=== PATIENT | male | born 1960 | race Caucasian/White ===

== ENCOUNTER 2022-10-25 06:02 | Inpatient (IN) ==
--- NOTE | 2022-10-06 14:53 | PAT Medication Instructions ---
Medication Instructions Date of Service October 06, 2022 Home Medications carisoprodol 350 mg tablet 350 mg PO TID PRN muscle spasms ipratropium 20 mcg-albuterol 100 mcg/actuation mist for inhalation (Combivent Respimat) 1 puff inhalation Q4H PRN Shortness Of Breath oxycodone 10 mg tablet 30 mg PO QID DO NOT take the morning of surgery carisoprodol 350 mg tablet 350 mg PO TID PRN muscle spasms Take morning of surgery With a small sip of water, OTHERWISE NOTHING TO EAT OR DRINK AFTER MIDNIGHT: ipratropium 20 mcg-albuterol 100 mcg/actuation mist for inhalation (Combivent Respimat) 1 puff inhalation Q4H PRN Shortness Of Breath (if needed) oxycodone 10 mg tablet 30 mg PO QID Take evening before surgery carisoprodol 350 mg tablet 350 mg PO TID PRN muscle spasms (if needed) ipratropium 20 mcg-albuterol 100 mcg/actuation mist for inhalation (Combivent Respimat) 1 puff inhalation Q4H PRN Shortness Of Breath (if needed) oxycodone 10 mg tablet 30 mg PO QID Other Notes If you have any questions please call us at [phone] or [phone] or [phone] or [phone]
--- NOTE | 2022-10-11 11:53 | Anesthesiology Consultation ---
Date of Service October 11, 2022 Assessment & Plan (1) Encounter for pre-operative examination: Chart Review Chart Review: Acceptable Risk for Surgery (pending PCP clearance 10/17/22) and Patient seen in Pre Admission Testing -Awaiting PCP clearance 10/17/22 Pt with chronic pain- concerned with pain control post op- did educate that post operative pain control would be left to surgeon's discretion Per PAT appt on 10/11/22, patient denies any recent travel or large group activities. Pt is vaccinated for Covid. Will leave to surgeon's discretion if preop Covid testing needed. Educated on importance of using Covid precautions one week prior to surgery Teaching & Discussion Pre-Anesthesia Teaching/Discussion Notes: Instructed NPO after midnight before surgery,except medications with 15 cc of water. Medication instructions provided according to the PAT guidelines. History Surgery Operation Date: 10/25/22 12:25 Proposed Procedures p C6-C7 Anterior Cervical Discectomy Fusion, C4-C7 Fusion, C5 Corpectomy, Spinal Cord Monitoring - Sung Hummel, Height/Weight Height: 5 ft 7 in Weight: 80.9 kg Allergies Allergy/AdvReac Type Severity Reaction Status Date / Time No Known Allergies Allergy Verified 10/06/22 09:09 Medications Home Medications Medication Instructions Recorded Confirmed Last Taken carisoprodol 350 mg tablet 350 mg PO TID PRN muscle spasms 10/06/22 10/06/22 Unknown ipratropium 20 mcg-albuterol 100 1 puff inhalation Q4H PRN 10/06/22 10/06/22 Unknown mcg/actuation mist for inhalation Shortness Of Breath (Combivent Respimat) oxycodone 10 mg tablet 30 mg PO QID 10/06/22 10/06/22 Unknown amitriptyline 10 mg tablet See Rx Instructions .Route .COMPLEX 10/11/22 10/11/22 Unknown Past Medical History Medical History Cauda equina syndrome caused by his spinal cord surgery (2009); mostly uses wheelchair outside of home, walker used at home Chronic obstructive pulmonary disease inh prn breathing stable Degenerative joint disease Bilateral knee pain as well History of COVID-19 beginning 2021, tested at [facility] clinic in [place], not hosp; no symptoms, was sick "so they both tested" Hx MRSA infection ~10 years ago, dx in [place], found in [place], tx and cleared. Myocardial Infarction ~21 years ago, in [place], "stress heart attack", pushed air bubble into heart during cath, causing "major heart attack" - No stents or bypass needed - Negative stress test for ischemia 2012 - No routine cardio- just PCP Osteoarthritis Exercise / Class Metabolic Activity III < 4 Walking/Shop/Light housework (significantly decreased activity (due to increased pain since PCP decreased pain medication doses) - no chest pain or SOB with flat surface, short distance ambulation ) Past Surgical History Surgical History History of cardiac cath ~21 years ago, "light heart attack, pushed an air bubble into his heart during the cath causing a major heart attack," done in [place]; does not follow cardio History of esophagogastroduodenoscopy (EGD) Hx of anterior cruciate ligament tear reconstruction Hx of arthroscopy of knee x15 between both knees Hx of colonoscopy Hx of elbow surgery LT. Hx of knee surgery x3-bilat. knees Hx of lumbosacral spine surgery 2 cages placed into back from spinal cord injury Hx of shoulder surgery open surgery to removed portion of collar bone Hx of tonsillectomy Past Anesthesia History No Hx of Anesthesia Complications (with exception to PONV ) and No Family Hx of Anesthesia Complications History of PONV No Hx of Motion Sickness and History of PONV Social History Smoking Status: Current every day smoker tobacco type: cigarettes Smoking cigarettes per day: 10cigs/day; trying to quit- does wear nicotine patches Do You Dip or Chew Tobacco: No Hx Alcohol Use: No Hx Substance Use: No substance use type: does not use Review of Systems Patient denies chest pain, shortness of breath, dyspnea on exertion, reflux, cough, wheezing, palpitations. No hx of seizures, stroke, apnea/snoring. No hx of blood clots or blood transfusions Physical Exam Vital Signs VITALS BP 122/70 P 86 TEMP 98.0 SP02 94% RESP 16 Constitutional no acute distress ENMT Mouth: no TMJ clicking Thyromental Distance: > or= 3.5 Finger Breadths (4.0) Mallampati Class: I Full dentures on top and bottom Neck + limited neck extension (significant) Respiratory normal respiratory effort; no respiratory distress Auscultation: lungs clear to auscultation bilaterally; no wheezes Minimal course breath sounds throughout Cardiovascular Rate/Rhythm: regular rate and regular rhythm Heart Sounds: no murmur Vessels: no carotid bruit Musculoskeletal Spine: + pain with cervical ROM (significant) Extremities: extremities normal to inspection Psychiatric Orientation: alert Lab Results Anesthesia Preop Results Results Anesthesia Widget: WBC 8.54 K/ul (4.8-10.8) 10/11/22 Hgb 17.1 g/dl (14.0-18.0) 10/11/22 Hct 50.0 % (42.0-52.0) 10/11/22 Plt 269 K/uL (130-400) 10/11/22 Na 139 mmol/L (136-145) 10/11/22 K 4.4 mmol/L (3.5-5.1) 10/11/22 Cl 108 mmol/L (98-107) H 10/11/22 CO2 26 mmol/L (21-32) 10/11/22 BUN 13 mg/dl (6-23) 10/11/22 Creat 1.06 mg/dl (0.6-1.4) 10/11/22 Glucose Level 86 mg/dl (70-99(Fasting)) 10/11/22 PT 10.5 Seconds (9.0-12.0) 10/11/22 PTT 29.9 Seconds (21.0-31.0) 10/11/22 INR 1.0 (0.9-1.1) 10/11/22 Urine Color Yellow 10/11/22 Urine Appearance Clear (Clear) 10/11/22 Urine pH 5.5 (4.5-7.5) 10/11/22 Urine Specific Wheeler 1.027 (1.000-1.030) 10/11/22 Urine Protein Negative (Negative) 10/11/22 Urine Glucose (UA) Negative (Negative) 10/11/22 Urine Ketones Negative (Negative) 10/11/22 Urine Blood Negative (Negative) 10/11/22 Urine Nitrite Negative (Negative) 10/11/22 Urine Bilirubin Negative (Negative) 10/11/22 Urine Urobilinogen Negative (Negative) 10/11/22 Urine Leukocyte Esterase Negative (Negative) 10/11/22 Blood Type O Negative 10/11/22 Antibody Screen NEGATIVE 10/11/22 Testing Electrocardiogram Date: 10/11/22 Findings: + NSR @ (69bpm ) Normal EKG per cardio Chest X-Ray Date: 08/14/22 Possible pulmonary emphysema, otherwise unremarkable lungs Echocardiogram Date: 12/25/18 EF: 50-55% LV Function: normal RWMA: + none Other Findings: + diastolic dysfunction (Grade 1) Valvular Disease: + no significant valvular disease Left ventricle normal in size. Mild concentric LVH. Borderline left atrial enlargement COVID-19 Risk Screen Screening Information COVID-19 Screen Date: 10/11/22 Exposure 21 Days Family/Household +COVID Last 21 Days: No Exposure 10 Days Any COVID Exposure Last 10 Days: No Symptoms Last 10 Days Experienced COVID Sx Last 10 Days: No + COVID 0-90 Days COVID + in Last 0-90 Days: No Risk Plan COVID Risk Plan: No Risk Identified Patient Education COVID Preop Screening Education Complete: Yes
[~2022-10-25 06:02] MED LIST: ACETAMINOPHEN 500 MG TAB PO SCH; CeleBREX 200 MG CAP PO SCH; GABAPENTIN 600 MG DOSE PO SCH; LR 15ML/HR IV SCH; ceFAZolin 2000MG 2,000 MG/15 ML SYR IV SCH
[2022-10-25] MEDS ORDERED: LIDOCAINE 2% MPF LOCAL 5 ML VIAL ONE (07:20)
[2022-10-25] MEDS ORDERED: PROPOFOL IV EMULSION 10 MG/ML 20 ML VIAL IV ONE (07:20)
[2022-10-25] MEDS ORDERED: ROCURONIUM BROMIDE 10 MG/ML 5 ML VIAL IV ONE ×3 (07:20→08:41)
[2022-10-25] MEDS ORDERED: MIDAZOLAM HCL 1 MG/ML 2ML VIAL ONE (07:21)
[2022-10-25] MEDS ORDERED: fentaNYL citrate PF 100 MCG/2 ML VIAL ONE ×2 (07:21→08:18)
[2022-10-25] MEDS ORDERED: KETAMINE 50 MG/5 ML SYRINGE ONE (07:24)
[2022-10-25] MEDS ORDERED: PROMETHAZINE HCL 6.25 MG in SODIUM CHLORIDE 0.9% 50 ML IV PRN (07:31)
[2022-10-25] MEDS ORDERED: ONDANSETRON INJ 2 MG/ML 2 ML VIAL IV PRN (07:31)
[2022-10-25] MEDS ORDERED: ATROPINE SULFATE 0.1 MG/ML 10ML SYR IV PRN (07:31)
[2022-10-25] MEDS ORDERED: ePHEDrine sulfate 50 MG/ML AMP IV PRN (07:31)
[2022-10-25] MEDS ORDERED: SCOPOLAMINE 1 MG TDSY TD ONE ×2 (07:32→07:46)
--- NOTE | 2022-10-25 07:35 | History & Physical Bridge Note ---
Date of Service October 25, 2022 History & Physical Bridge Note I have examined the patient, reviewed the History & Physical and in the interval since the performance of the History & Physical I have noted the following changes of clinical significance: no changes noted
--- NOTE | 2022-10-25 07:36 | History & Physical Report ---
Date of Service October 25, 2022 Assessment & Plan (1) Cervical stenosis of spinal canal: Plan: C6-C7 anterior cervical discectomy and fusion, C4-C7 fusion, C5 corpectomy History of Present Illness Chief Complaint: Neck and arm pain Primary Care Provider: Rubin Jimenez MD This is a 62-year-old male presents with chronic persistent neck and arm pain after failing course of nonoperative care is here for surgical intervention. Allergies Allergy/AdvReac Type Severity Reaction Status Date / Time No Known Allergies Allergy Verified 10/25/22 06:29 Home Medications Medication Instructions Recorded Confirmed Type carisoprodol 350 mg tablet (Soma) 350 mg PO TID PRN muscle spasms 10/06/22 10/25/22 History ipratropium 20 mcg-albuterol 100 1 puff inhalation Q4H PRN 10/06/22 10/25/22 History mcg/actuation mist for inhalation Shortness Of Breath (Combivent Respimat) oxycodone 10 mg tablet 30 mg PO QID 10/06/22 10/25/22 History amitriptyline 10 mg tablet 30 mg PO HS 10/11/22 10/25/22 History Past Med/Surg History Medical History Cauda equina syndrome caused by his spinal cord surgery (2009); mostly uses wheelchair outside of home, walker used at home Chronic obstructive pulmonary disease inh prn breathing stable Degenerative joint disease Bilateral knee pain as well History of COVID-19 beginning 2021, tested at [facility] clinic in [place], not hosp; no symptoms, was sick "so they both tested" Hx MRSA infection ~10 years ago, dx in [place], found in [place], tx and cleared. Myocardial Infarction ~21 years ago, in [place], "stress heart attack", pushed air bubble into heart during cath, causing "major heart attack" - No stents or bypass needed - Negative stress test for ischemia 2012 - No routine cardio- just PCP Osteoarthritis Surgical History History of cardiac cath ~21 years ago, "light heart attack, pushed an air bubble into his heart during the cath causing a major heart attack," done in [place]; does not follow cardio History of esophagogastroduodenoscopy (EGD) Hx of anterior cruciate ligament tear reconstruction Hx of arthroscopy of knee x15 between both knees Hx of colonoscopy Hx of elbow surgery LT. Hx of knee surgery x3-bilat. knees Hx of lumbosacral spine surgery 2 cages placed into back from spinal cord injury Hx of shoulder surgery open surgery to removed portion of collar bone Hx of tonsillectomy Social History Smoking Status: Current every day smoker Cigarettes Per Day: 10cigs/day; trying to quit- does wear nicotine patches; Second Hand Exposure: No; Do You Dip or Chew Tobacco: No; Tobacco Cessation Education Requested by Patient: No Hx Alcohol Use: No Hx Substance Use: No Preferred Language: Telugu Communication Ability: Effective Supervisor Component Assembler Required: No Beliefs That Will Affect Care: None Current Living Situation: Spouse Other Information That Helps Us Care for You: No Feels Safe at Home: Yes Safety Concerns: Feels Safe At This Time Assistive Devices: Denture - Upper, Denture - Lower, Walker and Wheelchair Physical Exam Physical Exam: Patient is alert and oriented Heart regular rate and rhythm Lungs clear Results & Data Results & Data Vital Signs (Past 12 Hours) Vital Signs Temp Pulse Resp BP Pulse Ox O2 Del Method 10/25/22 06:23 36.7 C 75 20 112/85 95 Room Air
[2022-10-25] MEDS ORDERED: ceFAZolin 330 MG/ML 1 GM VIAL ONE (07:39)
[2022-10-25] MEDS ORDERED: ONDANSETRON INJ 2 MG/ML 2 ML VIAL ONE (08:55)
[2022-10-25] MEDS ORDERED: PHENYLEPHRINE HCL 10 MG/ML VIAL ONE (08:55)
[2022-10-25] MEDS ORDERED: DEXAMETHASONE SOD INJ 4 MG/ML VIAL ONE (08:55)
[2022-10-25] MEDS ORDERED: GLYCOPYRROLATE 0.2 MG/ML VIAL ONE ×2 (09:44)
[2022-10-25] MEDS ORDERED: NEOSTIGMINE METHYLSULFATE 1 MG/ML 10ML VIAL ONE (09:44)
[2022-10-25] MEDS ORDERED: ALBUTEROL HFA 8 GM INHALER INH ONE (09:48)
[2022-10-25] MEDS ORDERED: FLOSEAL HEMOSTATIC MATRIX 10ML TOP ONE (09:49)
--- NOTE | 2022-10-25 09:52 | Operative Report ---
Post Operative Report Pre & Post Diagnosis Operation Date: 10/25/22 07:45 Pre-Op Diagnosis: Cervical spinal stenosis with myeloradiculopathy Post-Op Diagnosis: Same I identified the patient and participated in the time-out.: Yes Procedure Operation Date: 10/25/22 07:45 Actual Procedures #1 anterior cervical corpectomy of C4. #2 anterior cervical discectomy C5-C6. #3 anterior cervical arthrodesis C3-C5 C5-C6. #4 placement of peek 25 mm cage C3-C5 and 8 mm cage C5-C6. #5 placement locally harvested morselized autograft combined with I factor interbody spaces. #6 placement of K2 M plate and screws from C3 to see 6. Surgeon Sung Hummel, DO Food Tray Assembler Shweta Banks Estimated Blood Loss 10 Findings Consistent with Post-Op Diagnosis Specimens None Indications This is a 62-year-old male presents above-mentioned diagnosis of failed course of nonoperative care is here for surgical invention. Description of Procedure Patient was met with identified informed consent obtained. Patient was then taken to the operative suite underwent intubation placed in a supine position the Mac table head Andrews head up operator. All bony prominences well-padded eyes inspected to ensure no external pressure placed upon them. This point the anterior cervical spine was prepped and draped in a normal sterile fashion. Longitudinal incision was then placed along the right anterior aspect of the cervical spine from C3 to see 6. Blunt dissection with the assistance of bipolar electrocautery to form down to expose the anterior cervical spine from C3-C6. Upon further review his x-rays and MRI I did elect to forego the C6-7 discectomy and focus instead on the severe levels from C3-C6. I then performed a complete discectomy of C3-C4 out to the uncovertebral joints bilaterally followed by C4-C5. Tillar distracting pins were then placed and through the C5 to distract across the C4 vertebral body. A complete corpectomy of C4 was then performed including removal of all posterior annular fibers and longitudinal limb and bilateral foraminotomies. Endplates burred to subcortical bleeding bone and a 25 mm peek cage filled with locally harvested morselized autograft and I factor tapped in position. Then proceeded to C5-C6. Again complete discectomy performed out to the uncovertebral's bilaterally. Tillar distraction pins again utilized. Removed all posterior annular fibers longitudinal ligament bilateral foraminotomies performed an 8 mm peek cage filled with locally harvested morselized autograft and I factor tapped in position. All anterior osteophytes were then burred to a smooth cortical surface and a K2 M plate and screws applied with the assistance of fluoroscopy. The incision was then copiously irrigated explored to ensure no damage to surrounding structures remaining bleeding. 10 round MADDY drain inserted. The incision was then closed with 2 Vicryl in a fashion of 4 Monocryl for final skin closure. Steri-Strip sterile dressing placed. Patient awakened and taken to PACU in stable condition. Please note spinal cord monitoring was utilized at the procedure no changes noted. Lastly Shweta Banks was present at the entire surgeon while the patient positioning complex portions of the surgery and final skin closure. I attest to the content of the Intraoperative Record and any orders documented therein. Any exceptions are noted below.
[2022-10-25] MEDS: fentaNYL citrate PF 100 MCG/2 ML VIAL IV PRN ×5 (10:05→11:12)
[2022-10-25] MEDS ORDERED: SODIUM CHLORIDE 0.9% 50 ML BAG ONE (10:07)
[2022-10-25] MEDS ORDERED: PROMETHAZINE HCL INJ 25 MG/ML 1 ML VIAL ONE (10:08)
--- NOTE | 2022-10-25 10:28 | Fluoroscopy Report ---
FL cervical 2-3V CLINICAL HISTORY: ACDF C3-6 CORPECTOMY C4 COMPARISON STUDY: None. FLUOROSCOPY TIME: 9 seconds. EXPOSURE DOSE: 1.05 mGy FLUOROSCOPIC IMAGES: 2 FINDINGS: Fluoroscopy was provided during C4 corpectomy, C5-C6 discectomy with interbody spacer place ment and anterior fusion from C3 through C6. Hardware is intact. Surgical drain is in place. Endotrac heal tube is partially imaged. IMPRESSION: Fluoroscopy provided during C4 corpectomy, C5-C6 discectomy and C3-C6 anterior fusion. ACT 112: Negative or not required by law. Electronically signed by: Rafita Palomino M.D. 10/25/2022 10:25 AM
[2022-10-25] MEDS ORDERED: ACETAMINOPHEN 1000 MG/100 ML IV IV ONE (10:38)
[2022-10-25] MEDS ORDERED: ACETAMINOPHEN 1,000 MG/100 ML VIAL IV STA (10:39)
[2022-10-25] MEDS ORDERED: ALBUT/IPRATROP 3MG/0.5MG NEB 3 ML VIAL NEB STA (10:39)
[2022-10-25] MEDS ORDERED: ALBUT/IPRATROP 3MG/0.5MG NEB 3 ML VIAL ONE (10:39)
[2022-10-25] MEDS ORDERED: HYDROmorphone INJ 0.5 MG/0.5 ML SYR IV PRN (11:21)
[2022-10-25] MEDS: HYDROmorphone INJ 0.5 MG/0.5 ML SYR ONE ×2 (11:25→11:29)
[2022-10-25] MEDS ORDERED: ACETAMINOPHEN 1,000 MG/100 ML VIAL IV PRN (12:09)
[2022-10-25] MEDS ORDERED: bisacodyL 10 MG SUPP PR PRN (12:09)
[2022-10-25] MEDS ORDERED: diphenhydrAMINE Capsule 25 MG CAP PO PRN (12:09)
[2022-10-25] MEDS ORDERED: DO NOT ADMINISTER FLU VACCINE PRN (12:09)
[2022-10-25] MEDS ORDERED: dexAMETHasone 8 MG in SYRINGE 0 ML IV PRN (12:09)
[2022-10-25] MEDS ORDERED: traMADol HCL 50 MG TABLET PO PRN (12:09)
[2022-10-25] MEDS ORDERED: SOD PHOSPHATE/SOD BIPHOSPHATE ENEMA 132 ML BTL PR PRN (12:09)
[2022-10-25] MEDS ORDERED: HYDROmorphone INJ 1 MG/ML SYRINGE IV PRN (12:09)
[2022-10-25] MEDS ORDERED: FAMOTIDINE 20 MG TAB PO PRN (12:09)
[2022-10-25] MEDS ORDERED: PROMETHAZINE HCL 12.5 MG in SODIUM CHLORIDE 0.9% 50 ML IV PRN (12:09)
[2022-10-25] MEDS ORDERED: METOCLOPRAMIDE HCL INJ 5 MG/ML 2 ML VIAL IV PRN (12:09)
[2022-10-25] MEDS ORDERED: LORazepam 2 MG/1 ML VIAL IV PRN (12:09)
[2022-10-25] MEDS ORDERED: ACETAMINOPHEN 500 MG TAB PO PRN (12:09)
[2022-10-25] MEDS ORDERED: DO NOT ADMINISTER PNEUMOCOCCAL VACCINE PRN (12:09)
[2022-10-25] MEDS ORDERED: hydrOXYzine HCl 25 MG TAB PO PRN (12:09)
[2022-10-25] MEDS ORDERED: ALUMINUM/MAGNESIUM SUSP 30 ML UDC PO PRN (12:09)
[2022-10-25] MEDS ORDERED: ONDANSETRON 4 MG OD TAB PO PRN (12:09)
[2022-10-25] MEDS ORDERED: LORazepam 0.5 MG TAB PO PRN (12:09)
[2022-10-25] MEDS ORDERED: RACEPINEPHRINE 2.25% NEBU SOLN 0.5 ML VIAL INH PRN (12:09)
[2022-10-25] MEDS ORDERED: NALOXONE HCL 0.4 MG/1 ML VIAL/CARP IV PRN (12:09)
--- NOTE | 2022-10-25 12:58 | Anesthesiology Progress Note ---
Date of Service October 25, 2022 Anesthesia Post Procedure Vital Signs Vital Signs: Temp Pulse Pulse Resp BP Pulse Ox O2 Del Method 10/25/22 12:05 36.5 C 100 H 16 120/85 92 Nasal Cannula 10/25/22 10:20 94 H 18 144/96 H 92 Oxymask 10/25/22 11:50 100 H 20 122/85 91 Nasal Cannula 10/25/22 11:40 36.2 C L 92 H 20 123/84 92 Nasal Cannula 10/25/22 11:30 85 12 123/93 90 Nasal Cannula 10/25/22 11:20 87 14 127/90 92 Nasal Cannula 10/25/22 11:10 77 14 125/88 93 Nasal Cannula 10/25/22 11:00 79 12 145/94 H 92 Nasal Cannula 10/25/22 10:50 92 H 12 135/67 93 Oxymask 10/25/22 10:40 88 16 135/98 95 Oxymask 10/25/22 10:30 86 16 140/102 H 93 Oxymask 10/25/22 10:10 86 20 127/81 93 Oxymask 10/25/22 10:01 36.0 C L 104 H 16 141/79 H 94 Oxymask 10/25/22 06: 36.7 C 75 20 112/85 95 Room Air O2 Flow Rate 10/25/22 12:05 5 10/25/22 10:20 6 10/25/22 11:50 4 10/25/22 11:40 4 10/25/22 11:30 4 10/25/22 11:20 4 10/25/22 11:10 4 10/25/22 11:00 4 10/25/22 10:50 6 10/25/22 10:40 6 10/25/22 10:30 6 10/25/22 10:10 6 10/25/22 10:01 6 10/25/22 06:23 Pain Intensity Generalized: Pain Intensity: 10 Transfer of Care Handoff Completed per policy Notes Mental Status: alert / awake / arousable Patient Amnestic to Procedure: Yes Nausea / Vomiting: adequately controlled Pain: adequately controlled Airway Patency, RR, SpO2: stable & adequate BP & HR: stable & adequate Hydration State: stable & adequate Anesthetic Complications: no major complications apparent
--- NOTE | 2022-10-25 13:07 | Consultation ---
Date of Consultation October 25, 2022 History of Present Illness Reason for Consultation: post op med management Attending Physician: Sung Hummel DO Allergies Allergy/AdvReac Type Severity Reaction Status Date / Time No Known Allergies Allergy Verified 10/25/22 06:29 Home Medications Medication Instructions Recorded Confirmed Type carisoprodol 350 mg tablet (Soma) 350 mg PO TID PRN muscle spasms 10/06/22 10/25/22 History ipratropium 20 mcg-albuterol 100 1 puff inhalation Q4H PRN 10/06/22 10/25/22 History mcg/actuation mist for inhalation Shortness Of Breath (Combivent Respimat) oxycodone 10 mg tablet 30 mg PO QID 10/06/22 10/25/22 History amitriptyline 10 mg tablet 30 mg PO HS 10/11/22 10/25/22 History Patient History Medical History Cauda equina syndrome caused by his spinal cord surgery (2009); mostly uses wheelchair outside of home, walker used at home Chronic obstructive pulmonary disease inh prn breathing stable Degenerative joint disease Bilateral knee pain as well History of COVID-19 beginning 2021, tested at [facility] clinic in [place], not hosp; no symptoms, was sick "so they both tested" Hx MRSA infection ~10 years ago, dx in [place], found in [place], tx and cleared. Myocardial Infarction ~21 years ago, in [place], "stress heart attack", pushed air bubble into heart during cath, causing "major heart attack" - No stents or bypass needed - Negative stress test for ischemia 2012 - No routine cardio- just PCP Osteoarthritis Surgical History History of cardiac cath ~21 years ago, "light heart attack, pushed an air bubble into his heart during the cath causing a major heart attack," done in [place]; does not follow cardio History of esophagogastroduodenoscopy (EGD) Hx of anterior cruciate ligament tear reconstruction Hx of arthroscopy of knee x15 between both knees Hx of colonoscopy Hx of elbow surgery LT. Hx of knee surgery x3-bilat. knees Hx of lumbosacral spine surgery 2 cages placed into back from spinal cord injury Hx of shoulder surgery open surgery to removed portion of collar bone Hx of tonsillectomy Social History Smoking Status: Current every day smoker Cigarettes Per Day: 10cigs/day; trying to quit- does wear nicotine patches; Second Hand Exposure: No; Do You Dip or Chew Tobacco: No; Tobacco Cessation Education Requested by Patient: No Hx Alcohol Use: No Hx Substance Use: No Preferred Language: Afghan Communication Ability: Effective Air Cargo Specialist Required: No Beliefs That Will Affect Care: None Current Living Situation: Spouse Other Information That Helps Us Care for You: No Feels Safe at Home: Yes Safety Concerns: Feels Safe At This Time Assistive Devices: Denture - Upper, Denture - Lower, Walker and Wheelchair Results & Data Vital Signs (Past 12 Hours) Vital Signs Temp Pulse Pulse Resp BP Pulse Ox O2 Del Method 10/25/22 12:05 36.5 C 100 H 16 120/85 92 Nasal Cannula 10/25/22 10:20 94 H 18 144/96 H 92 Oxymask 10/25/22 11:50 100 H 20 122/85 91 Nasal Cannula 10/25/22 11:40 36.2 C L 92 H 20 123/84 92 Nasal Cannula 10/25/22 11:30 85 12 123/93 90 Nasal Cannula 10/25/22 11:20 87 14 127/90 92 Nasal Cannula 10/25/22 11:10 77 14 125/88 93 Nasal Cannula 10/25/22 11:00 79 12 145/94 H 92 Nasal Cannula 10/25/22 10:50 92 H 12 135/67 93 Oxymask 10/25/22 10:40 88 16 135/98 95 Oxymask 10/25/22 10:30 86 16 140/102 H 93 Oxymask 10/25/22 10:10 86 20 127/81 93 Oxymask 10/25/22 10:01 36.0 C L 104 H 16 141/79 H 94 Oxymask 10/25/22 06:23 36.7 C 75 20 112/85 95 Room Air O2 Flow Rate 10/25/22 12:05 5 10/25/22 10:20 6 10/25/22 11:50 4 10/25/22 11:40 4 10/25/22 11:30 4 10/25/22 11:20 4 10/25/22 11:10 4 10/25/22 11:00 4 10/25/22 10:50 6 10/25/22 10:40 6 10/25/22 10:30 6 10/25/22 10:10 6 10/25/22 10:01 6 10/25/22 06:23
--- NOTE | 2022-10-25 13:39 | Consultation ---
Date of Consultation October 25, 2022 Assessment & Plan (1) Toxic encephalopathy: (2) Postoperative hypoxia: Patient is 62 y/o M with PMH chronic pain, COPD, h/o cauda equina syndrome after lumbar surgery in 2009 per patient, tobacco use seen in medical consultation after rapid response code called on patient on medical surgical floor. S/P ACDF today by Dr Hummel Patient had received fentanyl total 150mcg and received 0.25mg Dilaudid in PACU prior to coming to floor. After coming to floor patient became somnolent. Code Purple called. Patient was given Narcan and more arousable. Patient drowsy, awakens to voice. When awake reports anterior and posterior neck pain. Currently on 6 L oxygen via nasal cannula with O2 sat 92% Monitor oxygen saturation continue supplemental oxygen as needed Currently holding narcotics until patient more awake (3) Stroke-like symptoms: Left sided weakness R/O TIA, CVA Patient developed LUE, LLE weakness and numbness while on medical surgical floor approximately 35-45 minutes after returning from PACU CT Head: no acute intracranial abnormality Developed left facial numbness. No acute facial drooping noted. CT C-spine: No acute cervical spine fracture or subluxation. Expected postoperative changes with anterior plate and screw fusion hardware at C3-C6 with C4 corpectomy and C5-C6 discectomy. Dr Hummel evaluated patient at bedside. Suggested continuing monitoring from ortho aspect Neurology consult. Suggested CTA head and neck, MRI brain. Suggested starting aspirin. Patient not ideal candidate for TNK secondary to POD #0 ACDF CTA head and neck pending MRI brain pending Start daily aspirin Lipid panel, A1c in am Consider echo if imaging suggestive of CVA Allow permissive hypertension (4) Post-operative state: (5) S/P spinal surgery: Post op day# 0 S/P ACDF by Dr Hummel EBL# 10ml wound management per ortho PT/OT as appropriate DVT prophylaxis per ortho monitor H&H for acute blood loss anemia (6) Chronic obstructive pulmonary disease: Uses Combivent approximately once weekly at home Mild wheezing noted Xopenex/Atrovent nebs (7) Tobacco use: Smoking cessation recommended Nicotine patch (8) Cauda equina syndrome: Patient reports history of cauda equina syndrome after back surgery in 2009 requiring being taken back to the OR for emergent surgery reports at baseline patient walks minimal distance and uses wheelchair secondary to chronic back pain and chronic bilateral knee pain DVT Prophylaxis SCDs Pt Follows with [facility] clinic for routine care Pt was seen and care coordinated with Dr Maldonado. See addendum I spent a total of 80 minutes reviewing notes, outpatient records, labs, medication, coordinating, documenting and providing care for this patient excluding time spent in the performance of separately billed services. Thank you for this consultation. We will follow the patient with you during their hospital stay. You can reach a member of the [facility] Hospitalist Team 12/02 via [employer] Supervising Physician Co-Signing Physician Notes I have seen and examined the patient and have discussed the case with the provider above. I agree with the assessment and plan as stated. 62-year-old man who is an active smoker presented today for elective ACDF. Medicine was consulted for postoperative medical management. While in the PACU he received fentanyl and Dilaudid. He arrived on the floor around noon and subsequently became a code purple within the next 30 minutes. He improved with Narcan administration but was in terrible pain. He was moved to the PCU and subsequently became more fatigued with left upper extremity weakness and numbness, left lower extremity weakness and numbness and facial numbness on the left. This waxed and waned. CT scan of his head was unremarkable, CT scan of C-spine was unremarkable. He was evaluated by ortho spine on at least 2 occasions and coordination with orthospine and neurology took place this afternoon. Additional narcotic pain medicine was considered cautiously given his level of over sedation. He has a known chronic history of significant oxycodone. Per neurology's assessment further work-up with a CTA head and neck was pursued and no large vessel occlusion was seen. MRI brain is pending. He improved throughout the afternoon from a strength and mentation standpoint. He was evaluated multiple times with a changing physical exam. For the most part his physical exam is consistent without listed above. He was oriented and had a normal respiratory effort. Lungs were clear to auscultation throughout. Lab work reveals an elevated white blood cell count of 16,000 and he did receive Decadron today. An ABG revealed slight hypoxia and he persistently has been requiring 6 to 10 L of oxygen supplementation at rest. Chemistry panel was within normal limits. Troponin was negative at 4.2. Lactate was normal at 1.5. A chest x-ray revealed atelectasis and central pulmonary vascular congestion without overt edema. An EKG revealed sinus tachycardia with a rate of 105. There were no ST changes suggestive of ischemia. 1. Altered mental status secondary to toxic encephalopathy with oversedation secondary to narcotic administration in PACU versus acute stroke. 2. s/p ACDF POD 0 with post operative hypoxia 3. smoking Imaging studies do not reveal evidence of acute stroke however MRI is pending. His clinical improvement is also suggestive of side effect from oversedation. Cleared by ortho spine to allow baby aspirin at this time for secondary stroke prevention. Lipid panel in a.m. A1c in a.m. Smoking cessation strongly encouraged. Continue careful administration of narcotics and monitor closely for agitation and withdrawal given his history of opiate dependence. We will monitor glucose with ongoing Decadron use. Thank you for this consultation, we will continue to follow the patient throughout his hospital stay. DO Joel History of Present Illness Requesting Physician: Dr Hummel Reason for Consultation: Post op medical management, Rosanna mccormick Attending Physician: Sung Hummel DO History of Present Illness Patient is 62 y/o M with PMH chronic pain, COPD, h/o cauda equina syndrome after lumbar surgery in 2009 per patient, tobacco use seen in medical consultation aft er rapid response code called on patient on medical surgical floor. S/P ACDF today by Dr Hummel. Patient had received fentanyl total 150mcg and received 0.25mg Dilaudid in PACU prior to coming to floor. Nurse reported at 1205 pt had bilateral hand grasp intact and bilateral pedal pushes and pulls intact. Reports he was a little sleepy. Nurse reports at 1240 patient was unable to grasp left hand and unable to move left leg. Patient expressed more numbness than usual. He was also noted to be more somnolent. Rosanna mccormick was called Dr Maldonado ordered and Narcan given at 1250. He was transferred to ICU in PCU status. Patient was noted to have left arm and left leg weakness and unable to lift left arm or leg. Stat CT Head: no acute intracranial abnormality. 1415 patient reports left facial numbness. Tongue midline, no facial drooping noted. Patient drowsy, awakens to voice. When awake reports anterior and posterior neck pain. Denies difficulty swallowing. Denies fever/chills, diaphoresis, N/V/D, FOUNTAIN, dizziness, CP, SOB, abdominal pain. Outpatient note reviewed from [facility] clinic visit 10/17/22 for preop evaluation. It was suggested for patient to taper off his chronic Soma over 2 weeks. Allergies Allergy/AdvReac Type Severity Reaction Status Date / Time tizanidine Allergy Unknown unknown Uncoded 10/25/22 13:29 fentanyl AdvReac Severe reacts Uncoded 10/25/22 13:29 poorly Home Medications Medication Instructions Recorded Confirmed Type carisoprodol 350 mg tablet (Soma) 350 mg PO TID PRN muscle spasms 10/06/22 10/25/22 History ipratropium 20 mcg-albuterol 100 1 puff inhalation Q4H PRN 10/06/22 10/25/22 History mcg/actuation mist for inhalation Shortness Of Breath (Combivent Respimat) oxycodone 10 mg tablet 30 mg PO QID 10/06/22 10/25/22 History amitriptyline 10 mg tablet 30 mg PO HS 10/11/22 10/25/22 History Patient History Medical History (Updated 10/25/22 @ 18:40 by Salome Delvalle PA-C) Cauda equina syndrome caused by his spinal cord surgery (2009); mostly uses wheelchair outside of home, walker used at home Chronic obstructive pulmonary disease inh prn breathing stable Degenerative joint disease Bilateral knee pain as well History of COVID-19 beginning 2021, tested at [facility] clinic in [place], not hosp; no symptoms, was sick "so they both tested" Hx MRSA infection ~10 years ago, dx in [place], found in [facility], [place] and cleared. Myocardial Infarction ~21 years ago, in [place], "stress heart attack", pushed air bubble into heart during cath, causing "major heart attack" - No stents or bypass needed - Negative stress test for ischemia 2012 - No routine cardio- just PCP Osteoarthritis Surgical History (Updated 10/25/22 @ 18:42 by Salome Delvalle PA-C) History of cardiac cath ~21 years ago, "light heart attack, pushed an air bubble into his heart during the cath causing a major heart attack," done in [place]; does not follow cardio History of esophagogastroduodenoscopy (EGD) Hx of anterior cruciate ligament tear reconstruction Hx of arthroscopy of knee x15 between both knees Hx of colonoscopy Hx of elbow surgery LT. Hx of knee surgery x3-bilat. knees Hx of lumbosacral spine surgery 2 cages placed into back from spinal cord injury Hx of shoulder surgery open surgery to removed portion of collar bone Hx of tonsillectomy Family History Mother Lupus Sister Lupus Father History of Parkinson's disease Social History Smoking Status: Current every day smoker Cigarettes Per Day: 10cigs/day; trying to quit- does wear nicotine patches; Second Hand Exposure: No; Do You Dip or Chew Tobacco: No; Tobacco Cessation Education Requested by Patient: No Hx Alcohol Use: No Hx Substance Use: No Preferred Language: Luxembourgish Communication Ability: Effective Stamp Clerk Required: No Beliefs That Will Affect Care: None Current Living Situation: Spouse Other Information That Helps Us Care for You: No Feels Safe at Home: Yes Safety Concerns: Feels Safe At This Time Assistive Devices: Denture - Upper, Denture - Lower, Walker and Wheelchair Review of Systems Review of Systems: All systems reviewed & are unremarkable except as noted in HPI & below Physical Exam Physical Exam: General: no acute distress, WDWN Head: normocephalic, atraumatic Eyes: PERRL, EOM's intact, conjunctiva non-injected, anicteric ENT: normal inspection external ears, nose, mucous membranes moist Neck: supple, trachea midline, C-collar in place, surgical dressing to anterior neck in place is dry, +MADDY drain in place with serosanguineous drainage Lungs: no respiratory distress on current 6L via NC, faint wheezing noted, no rhonchi/rales CV: tachycardia, rate 114, regular rhythm, no murmur Abd: normal BS, soft, non-tender Ext: no cyanosis, no erythema. distal pulses palpable Neuro: Sleepy, awakens to voice. Oriented x 3. Complains of neck pain when awake. Reported decreased left facial sensation to light touch. The face is strong and symmetric. Hearing grossly intact. Soft palate elevates symmetrically, no dysarthria. Shoulder shrug intact. Tongue is midline, normal movement, no fasciculations. Unable to actively flex, abduct left arm. Reports no sensation to light touch of entire left arm. Unable to flex or extend left leg or do pedal pushes or pulls. Reports no sensation to light touch of entire LLE. Skin: warm, dry Results & Data Vital Signs (Past 12 Hours) Vital Signs Temp Pulse Pulse Resp BP Pulse Ox O2 Del Method 10/25/22 13:06 114 H 20 96 Nasal Cannula 10/25/22 12:05 36.5 C 100 H 16 120/85 92 Nasal Cannula 10/25/22 10:20 94 H 18 144/96 H 92 Oxymask 10/25/22 11:50 100 H 20 122/85 91 Nasal Cannula 10/25/22 11:40 36.2 C L 92 H 20 123/84 92 Nasal Cannula 10/25/22 11:30 85 12 123/93 90 Nasal Cannula 10/25/22 11:20 87 14 127/90 92 Nasal Cannula 10/25/22 11:10 77 14 125/88 93 Nasal Cannula 10/25/22 11:00 79 12 145/94 H 92 Nasal Cannula 10/25/22 10:50 92 H 12 135/67 93 Oxymask 10/25/22 10:40 88 16 135/98 95 Oxymask 10/25/22 10:30 86 16 140/102 H 93 Oxymask 10/25/22 10:10 86 20 127/81 93 Oxymask 10/25/22 10:01 36.0 C L 104 H 16 141/79 H 94 Oxymask 10/25/22 06:23 36.7 C 75 20 112/85 95 Room Air O2 Flow Rate 10/25/22 13:06 6 10/25/22 12:05 5 10/25/22 10:20 6 10/25/22 11:50 4 10/25/22 11:40 4 10/25/22 11:30 4 10/25/22 11:20 4 10/25/22 11:10 4 10/25/22 11:00 4 10/25/22 10:50 6 10/25/22 10:40 6 10/25/22 10:30 6 10/25/22 10:10 6 10/25/22 10:01 6 10/25/22 06:23 Laboratory Results Short CBC 10/25/22 Range/Units 14:16 WBC 16.41 H (4.8-10.8) K/ul Hgb 15.9 (14.0-18.0) g/dl Hct 46.0 (42.0-52.0) % Plt Count 263 (130-400) K/uL BMP 10/25/22 14:16 Sodium 137 Potassium 3.7 Chloride 107 Carbon Dioxide 24 BUN 10 Creatinine 1.14 Glucose 141 H Calcium 8.9 Liver Function 10/25/22 Range/Units 14:16 Total Bilirubin 0.5 (0.2-1.0) mg/dl AST 14 (13-39) U/L ALT 10 (7-52) U/L Alkaline Phosphatase 88 (34-104) U/L Albumin 3.9 (3.4-5.0) gm/dl Diagnostic Findings Cervical Spine X-Ray 10/25/22 07:45 FL cervical 2-3V CLINICAL HISTORY: ACDF C3-6 CORPECTOMY C4 COMPARISON STUDY: None. FLUOROSCOPY TIME: 9 seconds. EXPOSURE DOSE: 1.05 mGy FLUOROSCOPIC IMAGES: 2 FINDINGS: Fluoroscopy was provided during C4 corpectomy, C5-C6 discectomy with interbody spacer placement and anterior fusion from C3 through C6. Hardware is intact. Surgical drain is in place. Endotracheal tube is partially imaged. IMPRESSION: Fluoroscopy provided during C4 corpectomy, C5-C6 discectomy and C3- C6 anterior fusion. ACT 112: Negative or not required by law. Electronically signed by: Rafita Palomino M.D. 10/25/2022 10:[address] 10/25/22 13:22 CT cervical spine wo con CLINICAL HISTORY: 62 years-old Male with s/p ACDF today, limited movement of LUE/LLE. Acute neck pain status post surgery COMPARISON: Fluoroscopic images of the cervical spine of same day at 8:11 AM TECHNIQUE: Multiple axial CT images of the cervical spine were obtained without contrast. A dose lowering technique was utilized adhering to the principles of ALARA. FINDINGS: Anterior plate and screw fusion hardware is noted at the C3-C6 levels with C4 corpectomy and C5-C6 discectomy. The hardware appears to be intact. Streak artifact from the hardware limits evaluation of the adjacent structures. Moderate degeneration at C1-C2. Mild to moderate multilevel facet arthrosis and spondylotic spurring. No acute fracture or subluxation identified. No large epidural or prevertebral fluid collections. Expected subcutaneous and deep tissue air within the anterior soft tissues. A surgical drainage catheter is noted within the right neck soft tissues. Pul monary emphysema with dependent groundglass densities. No pneumothorax. The airway appears patent. C2-C3: Uncovertebral hypertrophy with facet arthrosis and small posterior disc osteophyte complex. The central canal and left neural foramen are patent. Moderate right neural foraminal narrowing. C3-C4: Uncovertebral hypertrophy with facet arthrosis. The central canal is patent. Severe bilateral neural foraminal narrowing. C4-C5: Uncovertebral hypertrophy and facet arthrosis. The central canal is patent. Severe bilateral neural foraminal narrowing. C5-C6: Artifact from the discectomy limits evaluation. No high-grade central canal stenosis identified. Moderate left with severe right neural foraminal narrowing. C6-C7: Uncovertebral hypertrophy with posterior disc osteophyte complex and facet arthrosis. Moderate bilateral neural foraminal narrowing. The central canal is patent. IMPRESSION: 1. No acute cervical spine fracture or subluxation. 2. Expected postoperative changes with anterior plate and screw fusion hardware at C3-C6 with C4 corpectomy and C5-C6 discectomy. 3. Degenerative changes with multilevel neural foraminal narrowing as above. 4. Pulmonary emphysema. ACT 112: Negative or not required by law. The above report was generated using voice recognition software. It may contain grammatical, syntax or spelling errors. Dictated: 10/25/2022 2:08 PM Transcribed: 10/25/2022 2:42 PM Teodora [id number] MEL_Van [id number] Electronically signed by: Meng Casas M.D. 10/25/2022 2:[address] 10/25/22 13:[address] DOSE: 1273.57 mGycm HISTORY: altered mental status, limited movement of LUE/LLE TECHNIQUE: Multiaxial CT images of the head were performed without the use of intravenous contrast. Automated exposure control was utilized for this study. A dose lowering technique was utilized adhering to the principles of ALARA. Comparison: None. Findings: Mild mucosal thickening within the paranasal sinuses. The mastoid air cells are clear. The calvarium and skull base are intact. The ventricles and sulci are within normal limits. There is no mass, hematoma, midline shift, or acute infarct. Impression: No acute intracranial abnormality. ACT 112: Negative or not required by law. Electronically signed by: Rm Gonzalez M.D. 10/25/2022 2:02 PM Chest X-Ray 10/25/22 13:27 XR chest 1V portable HISTORY: post ACDF hypoxia and sedation COMPARISON: None. FINDINGS: There are low lung volumes. No pneumothorax. The heart is mildly enlarged. There is bibasilar linear densities likely representing subsegmental atelectasis. Small linear density also seen within the right midlung zone. There is mild central pulmonary basilar congestion without overt edema. No pleural effusions. Partially visualized cervical spinal fusion hardware. IMPRESSION: 1. Low lung volumes with bibasilar linear densities. This favors subsegmental atelectasis. A pneumonia could also have a similar appearance. 2. Cardiomegaly with mild central pulmonary vascular congestion without overt edema ACT 112: Negative or not required by law. Electronically signed by: Rm Gonzalez M.D. 10/25/2022 2:35 PM
[2022-10-25] MEDS: LACTATED RINGER'S 1,000 ML IV SCH (14:02)
--- NOTE | 2022-10-25 14:04 | CT Scan Report ---
HEAD CT NONCONTRAST CT DOSE: 1273.57 mGycm HISTORY: altered mental status, limited movement of LUE/LLE TECHNIQUE: Multiaxial CT images of the head were performed without the use of intravenous contrast. A utomated exposure control was utilized for this study. A dose lowering technique was utilized adheri ng to the principles of ALARA. Comparison: None. Findings: Mild mucosal thickening within the paranasal sinuses. The mastoid air cells are clear. The calvarium and skull base are intact. The ventricles and sulci are within normal limits. There is no m ass, hematoma, midline shift, or acute infarct. Impression: No acute intracranial abnormality. ACT 112: Negative or not required by law. Electronically signed by: Rm Gonzalez M.D. 10/25/2022 2:02 PM
[2022-10-25 14:32] LABS: Base Excess ABG -1.8 mEq/L (-9-1.8); HCO3 ABG 23 mmol/L (19-24); Oxygen Saturation ABG 95.6 % (90-95); PCO2 ABG 39 mmHg (35-46); PO2 ABG 69 mmHg (80-95); pH ABG 7.38 (7.35-7.45)
[2022-10-25 14:34] LABS: Allen Test Pos (Pos); Hemoglobin 15.9 g/dl (14.0-18.0); Mean Corpuscular Hemoglobin 30.5 pg (25.0-34.0); Mean Corpuscular Hgb Conc 34.6 g/dL (32.0-36.0); Mean Corpuscular Volume 88.3 fL (80.0-100.0); Mean Platelet Volume 10.7 fL (9.4-12.4); Platelet Count 263 K/uL (130-400); RDW Coefficient of Variation 13.2 % (11.5-14.5); RDW Standard Deviation 42.7 fL (36.4-46.3); Red Blood Count 5.21 M/uL (4.70-6.10); White Blood Count 16.41 K/ul (4.8-10.8)
--- NOTE | 2022-10-25 14:37 | XRay Report ---
XR chest 1V portable HISTORY: post ACDF hypoxia and sedation COMPARISON: None. FINDINGS: There are low lung volumes. No pneumothorax. The heart is mildly enlarged. There is bibasil ar linear densities likely representing subsegmental atelectasis. Small linear density also seen with in the right midlung zone. There is mild central pulmonary basilar congestion without overt edema. No pleural effusions. Partially visualized cervical spinal fusion hardware. IMPRESSION: 1. Low lung volumes with bibasilar linear densities. This favors subsegmental atelectasis. A pneumoni a could also have a similar appearance. 2. Cardiomegaly with mild central pulmonary vascular congestion without overt edema ACT 112: Negative or not required by law. Electronically signed by: Rm Gonzalez M.D. 10/25/2022 2:35 PM
--- NOTE | 2022-10-25 14:47 | CT Scan Report ---
CT cervical spine wo con CLINICAL HISTORY: 62 years-old Male with s/p ACDF today, limited movement of LUE/LLE. Acute neck meggan n status post surgery COMPARISON: Fluoroscopic images of the cervical spine of same day at 8:11 AM TECHNIQUE: Multiple axial CT images of the cervical spine were obtained without contrast. A dose low ering technique was utilized adhering to the principles of ALARA. FINDINGS: Anterior plate and screw fusion hardware is noted at the C3-C6 levels with C4 corpectomy an d C5-C6 discectomy. The hardware appears to be intact. Streak artifact from the hardware limits evaluation of the adjacen t structures. Moderate degeneration at C1-C2. Mild to moderate multilevel facet arthrosis and spondyl otic spurring. No acute fracture or subluxation identified. No large epidural or prevertebral fluid c ollections. Expected subcutaneous and deep tissue air within the anterior soft tissues. A surgical dr danielle catheter is noted within the right neck soft tissues. Pulmonary emphysema with dependent groun dglass densities. No pneumothorax. The airway appears patent. C2-C3: Uncovertebral hypertrophy with facet arthrosis and small posterior disc osteophyte complex. Th e central canal and left neural foramen are patent. Moderate right neural foraminal narrowing. C3-C4: Uncovertebral hypertrophy with facet arthrosis. The central canal is patent. Severe bilateral neural foraminal narrowing. C4-C5: Uncovertebral hypertrophy and facet arthrosis. The central canal is patent. Severe bilateral n eural foraminal narrowing. C5-C6: Artifact from the discectomy limits evaluation. No high-grade central canal stenosis identifie d. Moderate left with severe right neural foraminal narrowing. C6-C7: Uncovertebral hypertrophy with posterior disc osteophyte complex and facet arthrosis. Moderate bilateral neural foraminal narrowing. The central canal is patent. IMPRESSION: 1. No acute cervical spine fracture or subluxation. 2. Expected postoperative changes with anterior plate and screw fusion hardware at C3-C6 with C4 inge ectomy and C5-C6 discectomy. 3. Degenerative changes with multilevel neural foraminal narrowing as above. 4. Pulmonary emphysema. ACT 112: Negative or not required by law. The above report was generated using voice recognition software. It may contain grammatical, syntax o r spelling errors. Dictated: 10/25/2022 2:08 PM Transcribed: 10/25/2022 2:42 PM Teodora [id number] MEL_Van [id number] Electronically signed by: Meng Casas M.D. 10/25/2022 2:46 PM
[2022-10-25 14:50] LABS: Albumin Globulin Ratio 1.4 (0.9-2); Albumin Level 3.9 gm/dl (3.4-5.0); BUN Creatinine Ratio 8.8 (10-20); Bilirubin,Total 0.5 mg/dl (0.2-1.0); Calcium 8.9 mg/dl (8.6-10.3); Creatinine Clr Calc Pharmacy 69.1 ml/min; Globulin 2.8 gm/dl (2.5-4.0); Potassium 3.7 mmol/L (3.5-5.1); Total Protein 6.7 gm/dl (6.0-8.3)
[2022-10-25 14:56] LABS: Troponin I High Sensitivity 4.2 pg/ml (0-20)
--- NOTE | 2022-10-25 15:20 | Electrocardiogram Report ---
Test Reason : Blood Pressure : / mmHG Vent. Rate : 105 BPM Atrial Rate : 105 BPM P-R Int : 174 ms QRS Dur : 084 ms QT Int : 360 ms P-R-T Axes : 055 -19 017 degrees QTc Int : 475 ms Sinus tachycardia Otherwise normal ECG When compared with ECG of 11-OCT-2022 12:41, Vent. rate has increased BY 36 BPM Confirmed by Gildardo Bernabe ([id number]) on 10/25/2022 3:20:03 PM Referred By: Sung Hummel Confirmed By:Gildardo Bernabe
[2022-10-25] MEDS: HYDROmorphone INJ 0.5 MG/0.5 ML SYR IV PRN ×3 (15:30→23:57)
--- NOTE | 2022-10-25 15:58 | Communication Note ---
Date of Service: October 25, 2022 12:30 KENA PACKER Pt arrived from PACU with normal post op assessment around 12 pm. He became obtunded within the next 20-30 minutes. Arrived and patient was obtunded and not responding to examiners. Vitals stable and oxygenating well on supplementation via nasal canula. PCU team, RN and respiratory were in the room when I arrived. He was on the monitor and was sinus rhythm. was at bedside. She said he was an active smoker and had a heart attack in the past. She reported that during his last back surgery he was taken back to the OR for paralysis that developed post op. She also reported that he "does poorly" with fentanyl which he received in the PACU along with hydromorphone. He uses high doses of oxycodone regularly for chronic pain and is a patient with the [facility]. He opened his eyes with aggressive physical stimulation. He was given Narcan 0.4mg IV with rapid improvement in mental status. He was able to awaken and was oriented to person and situation. He reported pain in his neck. He was sent to 104 on PCU status. Re-evaluation in 104 revealed no change in mental status, except that he would frequently fall asleep. He developed intermittent weakness of LUE, LLE and decreased sensation in these extremities, also, along with facial numbness that started shortly after 2pm. I touched [facility] ortho spine surgeon at least twice and we decided to continue to monitor himi on telemetry after CT head and c-spine appear normal. I did consult neurology. Please see full consult note from this day, also. I spent a total [id number] of critical care time coordinating, documenting, and providing care for this patient excluding time spent in the performance of separately billed services Melissa Maldonado DO [facility]
--- NOTE | 2022-10-25 17:09 | Neurology Consultation ---
Date of Consultation October 25, 2022 Assessment & Plan (1) Stroke-like symptoms: Impression: The patient had a major cervical spine surgery this morning, and postoperatively, he needed repeated dosages of narcotic analgesics, with mental status change. After Narcan injection, mental status has been improved, but house staff noticed some weakness and numbness in the left upper and lower extremities. However, the patient has baseline sensorimotor deficits in the left upper and lower extremities, but the patient is not certain whether some worsening of such symptoms. Additionally, the patient also describes whole left side of body, including face, extremities, and left side of the tongue decreased sensation, which raised concern for acute cerebrovascular accident, involving right basal ganglia and internal capsule. Apparently, the patient is not a candidate for intravenous thrombolytic treatment. However, large vessel critical stenosis should be investigated. Recommendations/plan: CT angiogram of the head and neck to evaluate for large vessel critical stenosis. We will start patient on aspirin 81 mg daily. Permissive hypertension for next 24 hours up to 190 systolic and 100 diastolic. Neurological monitoring. Telemetry monitoring. Brain MRI without contrast when possible. We will check fasting lipid panel. Statin as needed. We will follow the patient's with you. (2) Cervical stenosis of spinal canal: Impression: The patient had cervical spine surgery this morning as described above. (3) Post-operative state: Plan As seen above. Thank you for the consultation. History of Present Illness Reason for Consultation: Stroke like symptoms Requesting Physician: Melissa Maldonado MD Attending Physician: Sung Hummel DO History of Present Illness The patient is a 62-year-old gentleman, who had C6-C7 anterior cervical discectomy and fusion, C4-C7 fusion, with C5 corpectomy under general anesthesia this morning, and was transferred to ICU around noon. Postoperatively, the patient was complaining of severe neck pain and left arm pain, and needed several dosage of narcotic analgesic medications, and eventually, he was obtunded. After receiving Narcan, the patient woke up. Physical examination was suggestive of left upper and lower extremity weakness with some numbness. However, the patient reported the same type of sensorimotor symptoms preopera tively. After further questioning, the patient also reported numbness on the left side of face, scalp, left side of body, left upper and lower extremities. He is not sure whether his current weakness in the left upper and lower extremity is baseline for him. Based on probable new neurological symptoms including facial paresthesia, head CT was ordered, which did not show acute intracranial pathology. Neurology consultation is recommended for further evaluation. Apparently, the patient is not a candidate for thrombolytic treatment based on having major recent surgery, and uncertain timing of initial symptoms. However, further work-up will be indicated to rule out large vessel critical stenosis or occlusion with CT angiographies. The case is discussed with hospitalist and orthopedic physicians. Apparently, there is no surgical contraindication for low-dose aspirin which will be started now. The patient's mental status has been improved back to his baseline. His pain control is r easonable. He reports some improvement of the left arm numbness and weakness. Physical examination is somewhat limited because of the patient's acute on chronic pain symptoms. I have reviewed the patient's chart including imaging studies and visualized them independently. I have discussed the case with hospitalist and orthopedic physicians. Allergies Allergy/AdvReac Type Severity Reaction Status Date / Time tizanidine Allergy Unknown unknown Uncoded 10/25/22 13:29 fentanyl AdvReac Severe reacts Uncoded 10/25/22 13:29 poorly Home Medications Medication Instructions Recorded Confirmed Type carisoprodol 350 mg tablet (Soma) 350 mg PO TID PRN muscle spasms 10/06/22 10/25/22 History ipratropium 20 mcg-albuterol 100 1 puff inhalation Q4H PRN 10/06/22 10/25/22 History mcg/actuation mist for inhalation Shortness Of Breath (Combivent Respimat) oxycodone 10 mg tablet 30 mg PO QID 10/06/22 10/25/22 History amitriptyline 10 mg tablet 30 mg PO HS 10/11/22 10/25/22 History Patient History Medical History Cauda equina syndrome caused by his spinal cord surgery (2009); mostly uses wheelchair outside of home, walker used at home Chronic obstructive pulmonary disease inh prn breathing stable Degenerative joint disease Bilateral knee pain as well History of COVID-19 beginning 2021, tested at [facility] clinic in [place], not hosp; no symptoms, was sick "so they both tested" Hx MRSA infection ~10 years ago, dx in [place], found in [facility], tx and cleared. Myocardial Infarction ~21 years ago, in [place], "stress heart attack", pushed air bubble into heart during cath, causing "major heart attack" - No stents or bypass needed - Negative stress test for ischemia 2012 - No routine cardio- just PCP Osteoarthritis Surgical History History of cardiac cath ~21 years ago, "light heart attack, pushed an air bubble into his heart dur ing the cath causing a major heart attack," done in [place]; does not follow cardio History of esophagogastroduodenoscopy (EGD) Hx of anterior cruciate ligament tear reconstruction Hx of arthroscopy of knee x15 between both knees Hx of colonoscopy Hx of elbow surgery LT. Hx of knee surgery x3-bilat. knees Hx of lumbosacral spine surgery 2 cages placed into back from spinal cord injury Hx of shoulder surgery open surgery to removed portion of collar bone Hx of tonsillectomy Family History Mother Lupus Sister Lupus Father History of Parkinson's disease Social History Smoking Status: Current every day smoker Cigarettes Per Day: 10cigs/day; trying to quit- does wear nicotine patches; Second Hand Exposure: No; Do You Dip or Chew Tobacco: No; Tobacco Cessation Education Requested by Patient: No Hx Alcohol Use: No Hx Substance Use: No Preferred Language: Upper Sorbian Communication Ability: Effective Process Automation Engineer Required: No Beliefs That Will Affect Care: None Current Living Situation: Spouse Other Information That Helps Us Care for You: No Feels Safe at Home: Yes Safety Concerns: Feels Safe At This Time Assistive Devices: Denture - Upper, Denture - Lower, Walker and Wheelchair Review of Systems Review of Systems: All systems reviewed & are unremarkable except as noted in HPI & below Physical Exam Physical Exam: General Examination: Constitutional: Well developed person in no acute distress. HENT: Normal exam with inspection. CV: Hearth rhythm is regular. Neck: In collar. Lungs: Non-labored and comfortable breathing. Abdomen: Soft, non-tender, non-distended. Skin: No rash or ecchymosis. Extremities: No edema or cyanosis NEUROLOGICAL EXAMINATION: Mental Status: Alert and oriented to place, person and time. Cranial Nerves: II-XII are intact. No nystagmus. Funduscopy: Not assessed Motor: Around 5-/5 in right upper and lower extremities. Left upper and lower extremity motor examination is somewhat limited because of pain. The patient reports some weakness in the left upper and lower extremity but not sure whether this is worsening from his baseline weakness. Tone: Normal without spasticity or rigidity. Sensory: There is decreased sensation on left side of face, extremity upper and lower extremities, body, and tongue. Coordination: No dysmetria with right FTN testing. Speech: Fluent. Comprehension is intact. Gait: Not able to assess. Musculoskeletal: Normal muscle bulk, no atrophy. Results & Data Vital Signs (Past 12 Hours) Vital Signs Temp Pulse Pulse Pulse Resp BP BP 10/25/22 16:39 36.8 C 107 H 16 102/79 10/25/22 14:39 105 H 20 137/90 10/25/22 14:01 125/86 10/25/22 14:01 115 H 20 10/25/22 14:00 102 H 17 10/25/22 13:45 113 H 10 L 10/25/22 13:45 127/92 10/25/22 13:43 115 H 38 H 10/25/22 13:15 97 H 16 10/25/22 13:09 97 H 10/25/22 13:09 121/88 10/25/22 13:39 10/25/22 13:37 10/25/22 13:06 114 H 20 10/25/22 12:05 36.5 C 100 H 16 120/85 10/25/22 10:20 94 H 18 144/96 H 10/25/22 11:50 100 H 20 122/85 10/25/22 11:40 36.2 C L 92 H 20 123/84 10/25/22 11:30 85 12 123/93 10/25/22 11:20 87 14 127/90 10/25/22 11:10 77 14 125/88 10/25/22 11:00 79 12 145/94 H 10/25/22 10:50 92 H 12 135/67 10/25/22 10:40 88 16 135/98 10/25/22 10:30 86 16 140/102 H 10/25/22 10:10 86 20 127/81 10/25/22 10:01 36.0 C L 104 H 16 141/79 H 10/25/22 06:23 36.7 C 75 20 112/85 Pulse Ox Pulse Ox O2 Del Method O2 Del Method O2 Flow Rate O2 Flow Rate 10/25/22 16:39 91 Nasal Cannula 6 10/25/22 14:39 93 Oxymask 12 10/25/22 14:01 10/25/22 14:01 91 10/25/22 14:00 91 10/25/22 13:45 91 10/25/22 13:45 10/25/22 13:43 90 10/25/22 13:15 90 10/25/22 13:09 91 10/25/22 13:09 10/25/22 13:39 Nasal Cannula 6 10/25/22 13:37 92 Nasal Cannula 6 10/25/22 13:06 96 Nasal Cannula 6 10/25/22 12:05 92 Nasal Cannula 5 10/25/22 10:20 92 Oxymask 6 10/25/22 11:50 91 Nasal Cannula 4 10/25/22 11:40 92 Nasal Cannula 4 10/25/22 11:30 90 Nasal Cannula 4 10/25/22 11:20 92 Nasal Cannula 4 10/25/22 11:10 93 Nasal Cannula 4 10/25/22 11:00 92 Nasal Cannula 4 10/25/22 10:50 93 Oxymask 6 10/25/22 10:40 95 Oxymask 6 10/25/22 10:30 93 Oxymask 6 10/25/22 10:10 93 Oxymask 6 10/25/22 10:01 94 Oxymask 6 10/25/22 06:23 95 Room Air Laboratory Results Laboratory Results - last 24 hr 10/25/22 10/25/22 10/25/22 12:44 14:16 14:16 WBC 16.41 H RBC 5.21 Hgb 15.9 Hct 46.0 MCV 88.3 MCH 30.5 MCHC 34.6 RDW Std Deviation 42.7 RDW Coeff of Licha 13.2 Plt Count 263 MPV 10.7 ABG pH ABG pCO2 ABG pO2 ABG HCO3 ABG O2 Saturation ABG Base Excess Zeke Test Oxygen Given Sodium 137 Potassium 3.7 Chloride 107 Carbon Dioxide 24 Anion Gap 6 BUN 10 Creatinine 1.14 Est Cr Clr Drug Dosing 69.1 Est GFR ( Amer) 80.0 Est GFR (Non-Af Amer) 69.0 BUN/Creatinine Ratio 8.8 L Glucose 141 H POC Glucose 147 H Lactate Calcium 8.9 Total Bilirubin 0.5 AST 14 ALT 10 Alkaline Phosphatase 88 Troponin I High Sens 4.2 Total Protein 6.7 Albumin 3.9 Globulin 2.8 Albumin/Globulin Ratio 1.4 SARS-CoV-2, RNA, NAAT 10/25/22 10/25/22 10/25/22 14:16 14:16 Unknown WBC RBC Hgb Hct MCV MCH MCHC RDW Std Deviation RDW Coeff of Licha Plt Count MPV ABG pH 7.38 ABG pCO2 39 ABG pO2 69 L ABG HCO3 23 ABG O2 Saturation 95.6 H ABG Base Excess -1.8 Zeke Test Pos Oxygen Given 5L Sodium Potassium Chloride Carbon Dioxide Anion Gap BUN Creatinine Est Cr Clr Drug Dosing Est GFR ( Amer) Est GFR (Non-Af Amer) BUN/Creatinine Ratio Glucose POC Glucose Lactate 1.5 Calcium Total Bilirubin AST ALT Alkaline Phosphatase Troponin I High Sens Total Protein Albumin Globulin Albumin/Globulin Ratio SARS-CoV-2, RNA, NAAT NEGATIVE Diagnostic Findings Cervical Spine X-Ray 10/25/22 07:45 FL cervical 2-3V CLINICAL HISTORY: ACDF C3-6 CORPECTOMY C4 COMPARISON STUDY: None. FLUOROSCOPY TIME: 9 seconds. EXPOSURE DOSE: 1.05 mGy FLUOROSCOPIC IMAGES: 2 FINDINGS: Fluoroscopy was provided during C4 corpectomy, C5-C6 discectomy with interbody spacer placement and anterior fusion from C3 through C6. Hardware is intact. Surgical drain is in place. Endotracheal tube is partially imaged. IMPRESSION: Fluoroscopy provided during C4 corpectomy, C5-C6 discectomy and C3- C6 anterior fusion. ACT 112: Negative or not required by law. Electronically signed by: Rafita Palomnio M.D. 10/25/2022 10:[address] 10/25/22 13:22 CT cervical spine wo con CLINICAL HISTORY: 62 years-old Male with s/p ACDF today, limited movement of LUE/LLE. Acute neck pain status post surgery COMPARISON: Fluoroscopic images of the cervical spine of same day at 8:11 AM TECHNIQUE: Multiple axial CT images of the cervical spine were obtained without contrast. A dose lowering technique was utilized adhering to the principles of ALARA. FINDINGS: Anterior plate and screw fusion hardware is noted at the C3-C6 levels with C4 corpectomy and C5-C6 discectomy. The hardware appears to be intact. Streak artifact from the hardware limits evaluation of the adjacent structures. Moderate degeneration at C1-C2. Mild to moderate multilevel facet arthrosis and spondylotic spurring. No acute fracture or subluxation identified. No large epidural or prevertebral fluid collections. Expected subcutaneous and deep tissue air within the anterior soft tissues. A surgical drainage catheter is noted within the right neck soft tissues. Pulmonary emphysema with dependent groundglass densities. No pneumothorax. The airway appears patent. C2-C3: Uncovertebral hypertrophy with facet arthrosis and small posterior disc osteophyte complex. The central canal and left neural foramen are patent. Moderate right neural foraminal narrowing. C3-C4: Uncovertebral hypertrophy with facet arthrosis. The central canal is patent. Severe bilateral neural foraminal narrowing. C4-C5: Uncovertebral hypertrophy and facet arthrosis. The central canal is patent. Severe bilateral neural foraminal narrowing. C5-C6: Artifact from the discectomy limits evaluation. No high-grade central canal stenosis identified. Moderate left with severe right neural foraminal narrowing. C6-C7: Uncovertebral hypertrophy with posterior disc osteophyte complex and facet arthrosis. Moderate bilateral neural foraminal narrowing. The central canal is patent. IMPRESSION: 1. No acute cervical spine fracture or subluxation. 2. Expected postoperative changes with anterior plate and screw fusion hardware at C3-C6 with C4 corpectomy and C5-C6 discectomy. 3. Degenerative changes with multilevel neural foraminal narrowing as above. 4. Pulmonary emphysema. ACT 112: Negative or not required by law. The above report was generated using voice recognition software. It may contain grammatical, syntax or spelling errors. Dictated: 10/25/2022 2:08 PM Transcribed: 10/25/2022 2:42 PM Teodora [id number] MEL_Van [id number] Electronically signed by: Meng Casas M.D. 10/25/2022 2:[address] 10/25/22 13:[address] DOSE: 1273.57 mGycm HISTORY: altered mental status, limited movement of LUE/LLE TECHNIQUE: Multiaxial CT images of the head were performed without the use of intravenous contrast. Automated exposure control was utilized for this study. A dose lowering technique was utilized adhering to the principles of ALARA. Comparison: None. Findings: Mild mucosal thickening within the paranasal sinuses. The mastoid air cells are clear. The calvarium and skull base are intact. The ventricles and sulci are within normal limits. There is no mass, hematoma, midline shift, or acute infarct. Impression: No acute intracranial abnormality. ACT 112: Negative or not required by law. Electronically signed by: Rm Gonzalez M.D. 10/25/2022 2:02 PM Chest X-Ray 10/25/22 13:27 XR chest 1V portable HISTORY: post ACDF hypoxia and sedation COMPARISON: None. FINDINGS: There are low lung volumes. No pneumothorax. The heart is mildly enlarged. There is bibasilar linear densities likely representing subsegmental atelectasis. Small linear density also seen within the right midlung zone. There is mild central pulmonary basilar congestion without overt edema. No pleural effusions. Partially visualized cervical spinal fusion hardware. IMPRESSION: 1. Low lung volumes with bibasilar linear densities. This favors subsegmental atelectasis. A pneumonia could also have a similar appearance. 2. Cardiomegaly with mild central pulmonary vascular congestion without overt edema ACT 112: Negative or not required by law. Electronically signed by: Rm Gonzalez M.D. 10/25/2022 2:35 PM
[2022-10-25] MEDS: ceFAZolin 2000MG 2,000 MG/15 ML SYR IV SCH (17:12)
[2022-10-25] MEDS: dexAMETHasone 6 MG in SYRINGE 0 ML IV SCH (17:19)
[2022-10-25] MEDS: CHECK SCOPOLAMINE PATCH PLACEMENT SCH (17:20)
[2022-10-25] MEDS ORDERED: ASPIRIN 81 MG CHEW PO STA (17:45)
[2022-10-25] MEDS ORDERED: OPTIRAY 320 500ml IV ONE (18:46)
[2022-10-25] MEDS ORDERED: PHARMACIST DISCHARGE MED REC CONSULT PRN (18:54)
[2022-10-25] MEDS ORDERED: XOPENEX/ATROVENT 1.25mg/0.5MG NEB COMBO NEB SCH (19:00)
--- NOTE | 2022-10-25 19:33 | CT Scan Report ---
Exam(s): CTA NECK With Contrast EXAM: CT Angiography Neck With Intravenous Contrast CLINICAL HISTORY: Reason for exam: left facial numbeness, LUE/LLE weakness post op. TECHNIQUE: Routine carotid CT angiography protocol was performed with intravenous contrast. NASCET criteria using the distal ICAs for comparison were used for evaluation of stenoses. CTDI is 14.2 mGy and DLP is 537.02 mGy-cm. Automated exposure control was utilized for the study. A dose lowering technique was utilized adhering to the principles of ALARA. MIP reconstructed images were created and reviewed. CONTRAST: 108 mL Optiray 320 IV contrast COMPARISON: None. FINDINGS: VASCULATURE: Right common carotid artery: Unremarkable. No occlusion or significant stenosis. No dissection. Right internal carotid artery: Unremarkable. Extracranial segment is patent with no occlusion or significant stenosis. No dissection. Right external carotid artery: Unremarkable. No occlusion. Right vertebral artery: Unremarkable. No occlusion or significant stenosis. No dissection. Left common carotid artery: Unremarkable. No occlusion or significant stenosis. No dissection. Left internal carotid artery: Unremarkable. Extracranial segment is patent with no occlusion or significant stenosis. No dissection. Left external carotid artery: Unremarkable. No occlusion. Left vertebral artery: Unremarkable. No occlusion or significant stenosis. No dissection. Other vasculature: Conventional aortic arch branch anatomy. NECK: Bones/joints: No acute fracture or dislocation. Anterior cervical discectomy and fusion C3-C6. Soft tissues: Soft tissue emphysema in the right neck may reflect resolving postoperative change. Lung apices: Centrilobular emphysema. Mediastinum: Fluid-filled esophagus. CAROTID STENOSIS REFERENCE USING NASCET CRITERIA: % ICA stenosis = (1 - narrowest ICA diameter/diameter of distal cervical ICA) x 100. Mild - <50% stenosis. Moderate - 50-69% stenosis. Severe - 70-94% stenosis. Near occlusion - 95-99% stenosis. Occluded - 100% stenosis. IMPRESSION: 1. No dissection, hemodynamically significant stenosis, or occlusion. 2. Fluid-filled esophagus, possibly on the basis of reflux. Electronically signed by: Bisi Flanagan M.D. 10/25/22 19:32 PM
--- NOTE | 2022-10-25 19:35 | CT Scan Report ---
Exam(s): CTA HEAD With Contrast EXAM: CT Angiography Head With Intravenous Contrast CLINICAL HISTORY: Reason for exam: left facial numbeness, LUE/LLE weakness post op. TECHNIQUE: Axial computed tomographic angiography images of the head with intravenous contrast. CTDI is 14.2 mGy and DLP is 537.02 mGy-cm. Automated exposure control was utilized for the study. A dose lowering technique was utilized adhering to the principles of ALARA. MIP reconstructed images were created and reviewed. CONTRAST: Contrast must be dictated COMPARISON: CT head 10/25/22 FINDINGS: Right internal carotid artery: No acute findings. Intracranial segment is patent with no significant stenosis. No aneurysm. Right anterior cerebral artery: Unremarkable. No occlusion or significant stenosis. No aneurysm. Right middle cerebral artery: Unremarkable. No occlusion or significant stenosis. No aneurysm. Right posterior cerebral artery: Unremarkable. No occlusion or significant stenosis. No aneurysm. Right vertebral artery: Unremarkable as visualized. Left internal carotid artery: No acute findings. Intracranial segment is patent with no significant stenosis. No aneurysm. Left anterior cerebral artery: Unremarkable. No occlusion or significant stenosis. No aneurysm. Left middle cerebral artery: Unremarkable. No occlusion or significant stenosis. No aneurysm. Left posterior cerebral artery: Unremarkable. No occlusion or significant stenosis. No aneurysm. Left vertebral artery: Unremarkable as visualized. Basilar artery: Unremarkable. No occlusion or significant stenosis. No aneurysm. IMPRESSION: 1. Patent intracranial circulation. Electronically signed by: Bisi Flanagan M.D. 10/25/22 19:33 PM
[2022-10-25] MEDS: LEVALBUTEROL 1.25MG/0.5ML NEB INH SCH (19:51)
[2022-10-25] MEDS: IPRATROPIUM BROMIDE NEB SOLN 0.02% 2.5 ML VIAL INH SCH (19:51)
[2022-10-25] MEDS: AMITRIPTYLINE HCL 10 MG TAB PO SCH (19:59)
[2022-10-25] MEDS: DOCUSATE SODIUM/SENNA 50/8.6MG TAB PO SCH (20:00)
[2022-10-25] MEDS: NICOTINE 21 MG/24 HR TDSY TD SCH (20:00)
[2022-10-25] MEDS ORDERED: ASPIRIN 81 MG CHEW ONE (20:12)
[2022-10-25] MEDS: oxyCODONE HCL IR 5 MG TAB (IMMEDIATE RELEASE) PO PRN (21:29)
[2022-10-26] MEDS: LEVALBUTEROL 1.25MG/0.5ML NEB INH SCH ×5 (00:03→23:05)
[2022-10-26] MEDS: IPRATROPIUM BROMIDE NEB SOLN 0.02% 2.5 ML VIAL INH SCH ×5 (00:03→23:06)
--- NOTE | 2022-10-26 00:03 | Magnetic Resonance Report ---
Exam(s): MRI HEAD Without Contrast EXAM: MR Head Without Intravenous Contrast CLINICAL HISTORY: Reason for exam: left facial numbeness, LUE/LLE weakness post op. TECHNIQUE: Magnetic resonance images of the head/brain without intravenous contrast in multiple planes. COMPARISON: CT head, CTA head 10/25/22 FINDINGS: Brain: No diffusion restriction to suggest acute cerebral ischemia. No acute intracranial hemorrhage or abnormal extra-axial fluid collection. No mass-effect or midline shift. Age-appropriate parenchymal volume. Thin margin of periventricular T2/FLAIR signal hyperintensity compatible with normal senescent changes. No significant white matter disease burden. Visualized proximal intracranial flow voids appear normal. Ventricles: Unremarkable. No ventriculomegaly. Bones/joints: Unremarkable. Sinuses: Trace mucosal thickening in the ethmoids and maxillary sinuses. Paranasal sinuses otherwise clear. No acute sinusitis. Mastoid air cells: Unremarkable as visualized. No mastoid effusion. Orbits: Unremarkable as visualized. IMPRESSION: No acute findings in the head/brain. Electronically signed by: Bisi Flanagan M.D. 10/26/22 00:01 AM
[2022-10-26] MEDS: LACTATED RINGER'S 1,000 ML IV SCH ×3 (00:20→18:39)
[2022-10-26] MEDS: ceFAZolin 2000MG 2,000 MG/15 ML SYR IV SCH (02:33)
[2022-10-26] MEDS: CHECK SCOPOLAMINE PATCH PLACEMENT SCH ×4 (02:34→23:04)
[2022-10-26] MEDS: dexAMETHasone 6 MG in SYRINGE 0 ML IV SCH ×2 (02:34→09:57)
[2022-10-26] MEDS: oxyCODONE HCL IR 5 MG TAB (IMMEDIATE RELEASE) PO PRN ×5 (02:37→22:18)
[2022-10-26] MEDS: HYDROmorphone INJ 0.5 MG/0.5 ML SYR IV PRN ×4 (04:44→21:27)
[2022-10-26] MEDS: POLYETHYLENE (MIRALAX) 17 GM PACK PO SCH ×2 (06:28→11:59)
[2022-10-26] MEDS: ASPIRIN 81 MG ECTAB PO SCH (08:05)
[2022-10-26] MEDS: NICOTINE 21 MG/24 HR TDSY TD SCH (08:05)
[2022-10-26 08:21] LABS: Hematocrit (blood only) 43.7 % (42.0-52.0); Mean Corpuscular Hemoglobin 30.3 pg (25.0-34.0); Mean Corpuscular Hgb Conc 34.3 g/dL (32.0-36.0); Mean Corpuscular Volume 88.3 fL (80.0-100.0); Platelet Count 293 K/uL (130-400); RDW Coefficient of Variation 13.2 % (11.5-14.5); RDW Standard Deviation 42.9 fL (36.4-46.3); Red Blood Count 4.95 M/uL (4.70-6.10); White Blood Count 21.07 K/ul (4.8-10.8)
--- NOTE | 2022-10-26 08:26 | Orthopedic Progress Note ---
Date of Service October 26, 2022 Assessment & Plan (1) Cervical stenosis of spinal canal: Plan: This time patient is being worked up for possible stroke. I would maintain the MADDY drain today. He may be a candidate for rehab. I will consult Occupational Therapy and physical therapy for their input. Admission and Anticipated Discharge Date Admission Date: October 25, 2022 Subjective Patient complaining of significant pain. He continues to note numbness to the left side of his face left arm left leg. He notes more difficulty controlling h is left leg this morning. He has no significant arm or leg pain. Physical Exam Physical Exam: On exam he has good function test in the right upper and lower extremity on the left he has ability to mobilize his arm above his head biceps and triceps but grasp is somewhat diminished. Sensory is decreased. He has difficulty with plantarflexion dorsiflexion of the left leg. Results & Data Vital Signs (Past 12 Hours) Vital Signs Temp Pulse Pulse Resp BP Pulse Ox O2 Del Method 10/26/22 07:40 36.6 C 105 H 20 124/75 95 Nasal Cannula 10/26/22 06:57 110 H 18 91 Nasal Cannula 10/26/22 03:00 113 H 18 93 Nasal Cannula 10/26/22 03:00 36.5 C 98 H 18 101/55 L 91 High Flow Nasal Cannula 10/26/22 00:14 High Flow Nasal Cannula 10/26/22 00:13 116 H 10/25/22 23:59 36.6 C 116 H 18 108/73 91 Nasal Cannula 10/26/22 00:04 115 H 18 91 Nasal Cannula 10/25/22 22:17 36.6 C 113 H 18 108/72 90 Nasal Cannula 10/25/22 20:39 36.5 C 117 H 18 90/66 L 94 Nasal Cannula O2 Flow Rate 10/26/22 07:40 10 10/26/22 06:57 10 10/26/22 03:00 10 10/26/22 03:00 10 10/26/22 00:14 6 10/26/22 00:13 10/25/22 23:59 6 10/26/22 00:04 6 10/25/22 22:17 6 10/25/22 20:39 6
[2022-10-26 08:31] LABS: Estimated Average Glucose 117 mg/dl; Hemoglobin A1C 5.7 % (4.5-5.6)
[2022-10-26 08:45] LABS: BUN Creatinine Ratio 11.5 (10-20); Chol HDL Ratio 4.8 (0-5); Creatinine Clr Calc Pharmacy 64.5 ml/min; Est GFR (African American) 73.7 ml/min; Est GFR (Non-African American) 63.6 ml/min; Potassium 4.3 mmol/L (3.5-5.1)
[2022-10-26 08:54] LABS: Basophils # (auto) 0.03 K/uL (0-0.2); Basophils % (auto) 0.1 %; Immature Granulocytes # (auto) 0.27 K/uL (0.01-0.20); Immature Granulocytes % (auto) 1.3 %; Lymphocytes # (auto) 1.06 K/uL (1.2-3.4); Monocytes # (auto) 0.41 K/uL (0.11-0.59); Monocytes % (auto) 1.9 %; Neutrophils % (auto) 91.7 %
--- NOTE | 2022-10-26 14:18 | Hospitalist Progress Note ---
Date of Service October 26, 2022 Assessment & Plan (1) Toxic encephalopathy: (2) Postoperative hypoxia: (3) Stroke-like symptoms: (4) Post-operative state: (5) S/P spinal surgery: (6) Chronic obstructive pulmonary disease: (7) Tobacco use: (8) Cauda equina syndrome: Plan 62-year-old male with history of cervical spinal stenosis status post ACDF 10/26/22. Postoperatively, he had repeat dose of narcotic analgesics with mental status changes requiring Narcan injection, also noted to have left-sided weakness and numbness. Seen by neurology, stroke work-up was negative with negative MRI brain/CT head and neck but continues to have left-sided symptoms. Reevaluate with neurology today and recommended repeating MRI brain and cervical spine tomorrow. Cervical spinal stenosis status post ACDF POD1-further management per primary team. Pain medication, DVT prophylaxis, activities and diet per primary team. Patient's pain was uncontrolled with current regimen. Patient and were concerned that he is not getting his home oxycodone. I spoke with Dr. Hummel and he agreed with resuming his home medication. Resume his home oxycodone, monitor. Strokelike symptoms-persistent left-sided hemiparesis with hemiparesthesia since yesterday per patient, not improving. Stroke work-up yesterday was unremarkable with negative MRI brain and CTA head and neck. Echo with no significant abnormality. Discussed with neurology today. Recommended repeating MRI brain and cervical spine without contrast tomorrow. Monitor clinically. Patient is not a candidate for thrombolytics given his surgery. Acute metabolic encephalopathy due to excess narcotics (received 150 mg of fent anyl along with Dilaudid in PACU)-resolved. Currently at baseline. COPD with hypoxia-continues to require supplemental oxygen, 9 L via NC. Continue to wean off as tolerated. No COPD exacerbation currently. Continue aerosols. Tobacco abuse-cessation recommended. Continue NicoDerm patch H/o Cauda equina syndrome after back surgery in 2009 requiring being taken back to the OR for emergent surgery. reports at baseline patient walks minimal distance and uses wheelchair secondary to chronic back pain and chronic bilateral knee pain Leukocytosis- ?reactive. Will monitor DVT ppx- per primary team Dispo- per primary team Admission and Anticipated Discharge Date Admission Date: October 25, 2022 Subjective Patient seen and examined at bedside. He is upset that he is not getting his pain medication as he takes at home. States he takes oxycodone 30 mg qid along with carisoprodol 3 times daily and as needed at home, here is not getting that. Did not get much sleep last night. He had strokelike symptoms last night due to overmedication but stroke work-up was negative. He currently feels fine except for the pain. Denies chest pain or shortness of breath, nausea or vomiting. Tolerating oral intake without issues. Review of Systems Review of Systems: All systems reviewed & are unremarkable except as noted in Subjective Physical Exam Physical Exam: General: Lying comfortably in bed, not in distress, on nasal cannula 9 L NC HEENT: JENNIFER, MMM. Anterior neck with dressing Chest: Clear breath sounds bilaterally, no wheezes or crackles CVS: Regular rate and rhythm, normal heart sounds, no murmur Abdomen: Soft, non tender, not distended, normal bowel sounds Neuro: Awake, alert, conversing well, left-sided hemiparesis with hemiparesthesia since yesterday not improving Extremities: No cyanosis, clubbing or edema Results & Data Results & Data Vital Signs (Past 12 Hours) Vital Signs Temp Pulse Pulse Resp BP Pulse Ox O2 Del Method 10/26/22 12:41 101 H 18 92 Nasal Cannula 10/26/22 11:11 36.7 C 102 H 18 115/71 91 Nasal Cannula, High Flow Nasal Cannula 10/26/22 10:05 108 H 10/26/22 07:40 36.6 C 105 H 20 124/75 95 Nasal Cannula 10/26/22 06:57 110 H 18 91 Nasal Cannula 10/26/22 03:00 113 H 18 93 Nasal Cannula 10/26/22 03:00 36.5 C 98 H 18 101/55 L 91 High Flow Nasal Cannula O2 Flow Rate 10/26/22 12:41 9 10/26/22 11:11 6 10/26/22 10:05 10/26/22 07:40 10 10/26/22 06:57 10 10/26/22 03:00 10 10/26/22 03:00 10 Laboratory Results Short CBC 10/26/22 Range/Units 06:29 WBC 21.07 H (4.8-10.8) K/ul Hgb 15.0 (14.0-18.0) g/dl Hct 43.7 (42.0-52.0) % Plt Count 293 (130-400) K/uL BMP 10/26/22 06:29 Sodium 137 Potassium 4.3 Chloride 103 Carbon Dioxide 26 BUN 14 Creatinine 1.22 Glucose 124 H Calcium 9.0 Medications Administered Current Inpatient Medications Acetaminophen (Acetaminophen 500 Mg Tab) 1,000 mg PO Q8H PRN PRN Reason: MILD Pain Scale 1,2,3 & Pre PT Stop: 11/24/22 12:08 Al Hydrox/Mg Hydrox/Simethicone (Aluminum/Magnesium Susp 30 Ml Udc) 30 ml PO Q6H PRN PRN Reason: Dyspepsia Stop: 11/24/22 12:08 Albuterol (Ipratropium [place]/Albuterol Respimat Inh) 1 puffs INH Q4R PRN; Protocol PRN Reason: Shortness Of Breath Stop: 11/24/22 12:08 Amitriptyline HCl (Amitriptyline Hcl 10 Mg Tab) 30 mg PO HS SERGEY Stop: 11/24/22 20:59 Last Admin: 10/25/22 19:59 Dose: 30 mg Aspirin (Aspirin 81 Mg Ectab) 81 mg PO QAM SERGEY Stop: 11/25/22 08:59 Last Admin: 10/26/22 08:05 Dose: 81 mg Bisacodyl (Bisacodyl 10 Mg Supp) 10 mg [place] DAILY PRN PRN Reason: Constipation Stop: 11/24/22 12:08 Diphenhydramine HCl (Diphenhydramine Capsule 25 Mg Cap) 25 mg PO Q6H PRN PRN Reason: Allergic Rhinitis/Insomnia Stop: 11/24/22 12:08 Epinephrine (Racepinephrine 2.25% Nebu Soln 0.5 Ml Vial) 0.5 ml INH NOW PRN PRN Reason: If stridor present Famotidine (Famotidine 20 Mg Tab) 20 mg PO Q12H PRN PRN Reason: Dyspepsia Stop: 11/24/22 12:08 Hydromorphone HCl (Hydromorphone Inj 0.5 Mg/0.5 Ml Syr) 0.5 mg IV Q3H PRN PRN Reason: MODERATE Pain (Scale 4,5,6) & Pre PT Stop: 11/08/22 12:08 Last Admin: 10/26/22 15:16 Dose: 0.5 mg Hydroxyzine HCl (Hydroxyzine Hcl 25 Mg Tab) 25 mg PO Q8H PRN PRN Reason: Anxiety Stop: 11/24/22 12:08 Dexamethasone 8 mg/ Syringe 2 mls @ 1 mls/min IV NOW PRN PRN Reason: If stridor present Lactated Ringer's (Lr) 1,000 mls @ 100 mls/hr IV .Q10H [facility] Stop: 11/24/22 12:08 Last Admin: 10/26/22 08:04 Dose: Not Given Promethazine HCl 12.5 mg/ (Sodium Chloride) 50.5 mls @ 202 mls/hr IV Q6H PRN PRN Reason: Nausea &/or Vomiting Stop: 11/24/22 12:08 Influenza Virus Vaccine Quadrival (Do Not Administer Flu Vaccine) 1 each N/A PRN PRN PRN Reason: Notification Stop: 11/24/22 12:08 Ipratropium [place] (Ipratropium [place] Neb Soln 0.02% 2.5 Ml Vial) 0.5 mg INH Q6R [facility] Stop: 11/24/22 18:59 Last Admin: 10/26/22 12:40 Dose: 0.5 mg Levalbuterol HCl (Levalbuterol 1.25mg/0.5ml Neb) 1.25 mg INH Q6R [facility] Stop: 11/24/22 18:59 Last Admin: 10/26/22 12:40 Dose: 1.25 mg Lorazepam (Lorazepam 0.5 Mg Tab) 0.5 mg PO Q8H PRN PRN Reason: Sedation/Anxiety Stop: 11/24/22 12:08 Lorazepam (Lorazepam 2 Mg/1 Ml Vial) 0.5 mg IV Q8H PRN PRN Reason: Sedation/Anxiety Stop: 11/24/22 12:08 Magnesium Hydroxide (Magnesium Hydroxide Susp 30 Ml Udc) 30 ml PO Q24H PRN PRN Reason: Constipation Stop: 11/24/22 12:08 Metoclopramide HCl (Metoclopramide Hcl Inj 5 Mg/Ml 2 Ml Vial) 10 mg IV Q6H PRN PRN Reason: Nausea &/or Vomiting Stop: 11/24/22 12:08 Miscellaneous (Remove Transderm-Scop Patch) 1 each N/A ONE ONE Stop: 10/28/22 06:01 Miscellaneous (Check Scopolamine Patch Placement) 1 each N/A QS [facility] Stop: 10/28/22 05:59 Last Admin: 10/26/22 15:59 Dose: 1 each Miscellaneous (Remove Nicoderm Patch) 1 each N/A DAILY@0859 [facility] Stop: 11/25/22 08:58 Last Admin: 10/26/22 08:04 Dose: 1 each Miscellaneous Information (Pharmacist Discharge Med Rec Consult) 1 each N/A UD PRN PRN Reason: Consult Stop: 11/24/22 18:53 Naloxone HCl (Naloxone Hcl 0.4 Mg/1 Ml Vial/Carp) 0.1 mg IV Q5M PRN PRN Reason: Oversedation/Resp depression Stop: 11/24/22 12:08 Nicotine (Nicotine 21 Mg/24 Hr Tdsy) 21 mg TD QAM [facility] Stop: 11/24/22 18:59 Last Admin: 10/26/22 08:05 Dose: 21 mg Ondansetron HCl (Ondansetron Inj 2 Mg/Ml 2 Ml Vial) 4 mg IV Q6H PRN PRN Reason: Nausea &/or Vomiting Stop: 11/24/22 12:08 Ondansetron HCl (Ondansetron 4 Mg Od Tab) 4 mg PO Q6H PRN PRN Reason: Nausea Stop: 11/24/22 12:08 Oxycodone HCl (Oxycodone Hcl Ir 5 Mg Tab (Immediate Release)) 20 - 30 mg PO Q6 PRN PRN Reason: Pain & Pre PT Stop: 11/08/22 12:08 Pneumococcal Polyvalent Vaccine (Do Not Administer Pneumococcal Vaccine) 1 each N/A PRN PRN PRN Reason: Notification Stop: 11/24/22 12:08 Senna/Docusate Sodium (Docusate Sodium/Senna 50/8.6mg Tab) 2 tab PO HS [facility] Stop: 11/24/22 20:59 Last Admin: 10/25/22 20:00 Dose: 2 tab Sodium Biphosphate/Sodium Phosphate (Sod Phosphate/Sod Biphosphate Enema 132 Ml Btl) 132 ml [place] ONE PRN PRN Reason: Constipation Stop: 11/24/22 12:08
--- NOTE | 2022-10-26 16:07 | Neurology Progress Note ---
Date of Service October 26, 2022 Assessment & Plan (1) Stroke-like symptoms: Plan: Impression: The patient had a major cervical spine surgery this morning, and postoperatively, he needed repeated dosages of narcotic analgesics, with mental status change. After Narcan injection, mental status has been improved, but house staff noticed some weakness and numbness in the left upper and lower extremities. However, the patient has baseline sensorimotor deficits in the left upper and lower extremities, but the patient is not certain whether some worsening of such symptoms. Additionally, the patient also describes whole left side of body, including face, extremities, and left side of the tongue decreased sensation, which raised concern for acute cerebrovascular accident, involving right basal ganglia and internal capsule. Apparently, the patient was not a candidate for intravenous thrombolytic treatment. Cervical CT, CT angiogram of head and neck, and brain MRI have been unremarkable without acute pathology. The patient reports worsening left arm and leg weakness, and persistent left facial numbness. Recommendations/plan: As the patient's symptoms worsen with initial negative imaging, we would like to repeat brain MRI and also add cervical spine MRI without contrast, which can be done tomorrow. Continue on aspirin 81 mg daily. No further permissive hypertension is indicated. Regular management of blood pressure. Neurological monitoring. Telemetry monitoring. We will follow the patient's with you. (2) Cervical stenosis of spinal canal: Plan: Impression: The patient had cervical spine surgery this morning as described above. (3) Post-operative state: Admission and Anticipated Discharge Date Admission Date: October 25, 2022 Subjective The patient still has left-sided numbness and weakness. He reports that prior to surgery, he was having some pain and numbness in the left upper extremity, but postoperatively, left arm sensory loss was worsened with additional weakness, and he was not having weakness in the left lower extremity preoperatively. He also denies having left facial numbness before. We suspected cerebrovascular accident in brain MRI was done, which did not show acute intracranial pathology including cerebrovascular accident. Cervical spine CT scan did not show cord compression, or bony fracture/dislocation, but postoperative changes. Since yesterday, left arm and leg weakness with numbness has been worsened. Review of Systems Review of Systems: All systems reviewed & are unremarkable except as noted in Subjective Physical Exam Physical Exam: General Examination: Constitutional: Well developed person in no acute distress. HENT: Normal exam with inspection. CV: Hearth rhythm is regular. Neck: In collar. Lungs: Non-labored and comfortable breathing. Abdomen: Soft, non-tender, non-distended. Skin: No rash or ecchymosis. Extremities: No edema or cyanosis NEUROLOGICAL EXAMINATION: Mental Status: Alert and oriented to place, person and time. Cranial Nerves: II-XII are intact. No nystagmus. Funduscopy: Not assessed Motor: Around 5-/5 in right upper and lower extremities. Left upper and lower extremity motor examination is somewhat limited because of pain but around 3-/5. Tone: Normal without spasticity or rigidity. Sensory: There is decreased sensation on left side of face, extremity upper and lower extremities, body, and tongue. Coordination: No dysmetria with right FTN testing. Speech: Fluent. Comprehension is intact. Gait: Not able to assess. Musculoskeletal: Normal muscle bulk, no atrophy. Results & Data Vital Signs (Past 12 Hours) Vital Signs Temp Pulse Pulse Resp BP Pulse Ox O2 Del Method 10/26/22 15:26 107 H 18 91 Nasal Cannula 10/26/22 15:04 36.5 C 109 H 18 120/72 90 High Flow Nasal Cannula 10/26/22 12:41 101 H 18 92 Nasal Cannula 10/26/22 11:11 36.7 C 102 H 18 115/71 91 Nasal Cannula, High Flow Nasal Cannula 10/26/22 10:05 108 H 10/26/22 07:40 36.6 C 105 H 20 124/75 95 Nasal Cannula 10/26/22 06:57 110 H 18 91 Nasal Cannula O2 Flow Rate 10/26/22 15:26 9 10/26/22 15:04 8 10/26/22 12:41 9 10/26/22 11:11 6 10/26/22 10:05 10/26/22 07:40 10 10/26/22 06:57 10 Laboratory Results Laboratory Results - last 24 hr 10/26/22 10/26/22 10/26/22 06:29 06:29 06:29 WBC 21.07 H RBC 4.95 Hgb 15.0 Hct 43.7 MCV 88.3 MCH 30.3 MCHC 34.3 RDW Std Deviation 42.9 RDW Coeff of Licha 13.2 Plt Count 293 MPV 11.0 Immature Gran % (Auto) 1.3 Neut % (Auto) 91.7 Lymph % (Auto) 5.0 [place] % (Auto) 1.9 Eos % (Auto) 0.0 Baso % (Auto) 0.1 Neut # (Auto) 19.30 H Lymph # (Auto) 1.06 L [place] # (Auto) 0.41 Eos # (Auto) 0.00 Baso # (Auto) 0.03 Immature Gran # (Auto) 0.27 H Sodium 137 Potassium 4.3 Chloride 103 Carbon Dioxide 26 Anion Gap 8 BUN 14 Creatinine 1.22 Est Cr Clr Drug Dosing 64.5 Est GFR ( Amer) 73.7 Est GFR (Non-Af Amer) 63.6 BUN/Creatinine Ratio 11.5 Glucose 124 H POC Glucose Estimat Average Glucose 117 Hemoglobin A1c 5.7 H Calcium 9.0 Triglycerides 89 Cholesterol 184 LDL Cholesterol, Calc 128 VLDL Cholesterol, Calc 18 HDL Cholesterol 38 Cholesterol/HDL Ratio 4.8 10/26/22 10/26/22 07:45 11:17 WBC RBC Hgb Hct MCV MCH MCHC RDW Std Deviation RDW Coeff of Licha Plt Count MPV Immature Gran % (Auto) Neut % (Auto) Lymph % (Auto) [place] % (Auto) Eos % (Auto) Baso % (Auto) Neut # (Auto) Lymph # (Auto) [place] # (Auto) Eos # (Auto) Baso # (Auto) Immature Gran # (Auto) Sodium Potassium Chloride Carbon Dioxide Anion Gap BUN Creatinine Est Cr Clr Drug Dosing Est GFR ( Amer) Est GFR (Non-Af Amer) BUN/Creatinine Ratio Glucose POC Glucose 167 H 154 H Estimat Average Glucose Hemoglobin A1c Calcium Triglycerides Cholesterol LDL Cholesterol, Calc VLDL Cholesterol, Calc HDL Cholesterol Cholesterol/HDL Ratio Diagnostic Findings Cervical Spine X-Ray 10/25/22 07:45 FL cervical 2-3V CLINICAL HISTORY: ACDF C3-6 CORPECTOMY C4 COMPARISON STUDY: None. FLUOROSCOPY TIME: 9 seconds. EXPOSURE DOSE: 1.05 mGy FLUOROSCOPIC IMAGES: 2 FINDINGS: Fluoroscopy was provided during C4 corpectomy, C5-C6 discectomy with interbody spacer placement and anterior fusion from C3 through C6. Hardware is intact. Surgical drain is in place. Endotracheal tube is partially imaged. IMPRESSION: Fluoroscopy provided during C4 corpectomy, C5-C6 discectomy and C3- C6 anterior fusion. ACT 112: Negative or not required by law. Electronically signed by: Rafita Palomino M.D. 10/25/2022 10:[address] 10/25/22 13:22 CT cervical spine wo con CLINICAL HISTORY: 62 years-old Male with s/p ACDF today, limited movement of LUE/LLE. Acute neck pain status post surgery COMPARISON: Fluoroscopic images of the cervical spine of same day at 8:11 AM TECHNIQUE: Multiple axial CT images of the cervical spine were obtained without contrast. A dose lowering technique was utilized adhering to the principles of ALARA. FINDINGS: Anterior plate and screw fusion hardware is noted at the C3-C6 levels with C4 corpectomy and C5-C6 discectomy. The hardware appears to be intact. Streak artifact from the hardware limits evaluation of the adjacent structures. Moderate degeneration at C1-C2. Mild to moderate multilevel facet arthrosis and spondylotic spurring. No acute fracture or subluxation identified. No large epidural or prevertebral fluid collections. Expected subcutaneous and deep tissue air within the anterior soft tissues. A surgical drainage catheter is noted within the right neck soft tissues. Pulmonary emphysema with dependent groundglass densities. No pneumothorax. The airway appears patent. C2-C3: Uncovertebral hypertrophy with facet arthrosis and small posterior disc osteophyte complex. The central canal and left neural foramen are patent. Moderate right neural foraminal narrowing. C3-C4: Uncovertebral hypertrophy with facet arthrosis. The central canal is pat ent. Severe bilateral neural foraminal narrowing. C4-C5: Uncovertebral hypertrophy and facet arthrosis. The central canal is patent. Severe bilateral neural foraminal narrowing. C5-C6: Artifact from the discectomy limits evaluation. No high-grade central canal stenosis identified. Moderate left with severe right neural foraminal narrowing. C6-C7: Uncovertebral hypertrophy with posterior disc osteophyte complex and facet arthrosis. Moderate bilateral neural foraminal narrowing. The central canal is patent. IMPRESSION: 1. No acute cervical spine fracture or subluxation. 2. Expected postoperative changes with anterior plate and screw fusion hardware at C3-C6 with C4 corpectomy and C5-C6 discectomy. 3. Degenerative changes with multilevel neural foraminal narrowing as above. 4. Pulmonary emphysema. ACT 112: Negative or not required by law. The above report was generated using voice recognition software. It may contain grammatical, syntax or spelling errors. Dictated: 10/25/2022 2:08 PM Transcribed: 10/25/2022 2:42 PM Teodora [id number] [email or web address] [id number] Electronically signed by: Meng Casas M.D. 10/25/2022 2:[address] 10/25/22 13:[address] DOSE: 1273.57 mGycm HISTORY: altered mental status, limited movement of LUE/LLE TECHNIQUE: Multiaxial CT images of the head were performed without the use of i ntravenous contrast. Automated exposure control was utilized for this study. A dose lowering technique was utilized adhering to the principles of ALARA. Comparison: None. Findings: Mild mucosal thickening within the paranasal sinuses. The mastoid air cells are clear. The calvarium and skull base are intact. The ventricles and sulci are within normal limits. There is no mass, hematoma, midline shift, or acute infarct. Impression: No acute intracranial abnormality. ACT 112: Negative or not required by law. Electronically signed by: Rm Gonzalez M.D. 10/25/2022 2:02 PM Chest X-Ray 10/25/22 13:27 XR chest 1V portable HISTORY: post ACDF hypoxia and sedation COMPARISON: None. FINDINGS: There are low lung volumes. No pneumothorax. The heart is mildly enlarged. There is bibasilar linear densities likely representing subsegmental atelectasis. Small linear density also seen within the right midlung zone. There is mild central pulmonary basilar congestion without overt edema. No pleural effusions. Partially visualized cervical spinal fusion hardware. IMPRESSION: 1. Low lung volumes with bibasilar linear densities. This favors subsegmental atelectasis. A pneumonia could also have a similar appearance. 2. Cardiomegaly with mild central pulmonary vascular congestion without overt edema ACT 112: Negative or not required by law. Electronically signed by: Rm Gonzalez M.D. 10/25/2022 2:35 PM Neck CTA 10/25/22 16:05 Exam(s): CTA NECK With Contrast EXAM: CT Angiography Neck With Intravenous Contrast CLINICAL HISTORY: Reason for exam: left facial numbeness, LUE/LLE weakness post op. TECHNIQUE: Routine carotid CT angiography protocol was performed with intravenous contrast. NASCET criteria using the distal ICAs for comparison were used for evaluation of stenoses. CTDI is 14.2 mGy and DLP is 537.02 mGy-cm. Automated exposure control was utilized for the study. A dose lowering technique was utilized adhering to the principles of ALARA. MIP reconstructed images were created and reviewed. CONTRAST: 108 mL Optiray 320 IV contrast COMPARISON: None. FINDINGS: VASCULATURE: Right common carotid artery: Unremarkable. No occlusion or significant stenosis. No dissection. Right internal carotid artery: Unremarkable. Extracranial segment is patent with no occlusion or significant stenosis. No dissection. Right external carotid artery: Unremarkable. No occlusion. Right vertebral artery: Unremarkable. No occlusion or significant stenosis. No dissection. Left common carotid artery: Unremarkable. No occlusion or significant stenosis. No dissection. Left internal carotid artery: Unremarkable. Extracranial segment is patent with no occlusion or significant stenosis. No dissection. Left external carotid artery: Unremarkable. No occlusion. Left vertebral artery: Unremarkable. No occlusion or significant stenosis. No dissection. Other vasculature: Conventional aortic arch branch anatomy. NECK: Bones/joints: No acute fracture or dislocation. Anterior cervical discectomy and fusion C3-C6. Soft tissues: Soft tissue emphysema in the right neck may reflect resolving postoperative change. Lung apices: Centrilobular emphysema. Mediastinum: Fluid-filled esophagus. CAROTID STENOSIS REFERENCE USING NASCET CRITERIA: % ICA stenosis = (1 - narrowest ICA diameter/diameter of distal cervical ICA) x 100. Mild - <50% stenosis. Moderate - 50-69% stenosis. Severe - 70-94% stenosis. Near occlusion - 95-99% stenosis. Occluded - 100% stenosis. IMPRESSION: 1. No dissection, hemodynamically significant stenosis, or occlusion. 2. Fluid-filled esophagus, possibly on the basis of reflux. Electronically signed by: Bisi Flanagan M.D. 10/25/22 19:32 PM Brain MRI 10/25/22 16:08 Exam(s): MRI HEAD Without Contrast EXAM: MR Head Without Intravenous Contrast CLINICAL HISTORY: Reason for exam: left facial numbeness, LUE/LLE weakness post op. TECHNIQUE: Magnetic resonance images of the head/brain without intravenous contrast in multiple planes. COMPARISON: CT head, CTA head 10/25/22 FINDINGS: Brain: No diffusion restriction to suggest acute cerebral ischemia. No acute intracranial hemorrhage or abnormal extra-axial fluid collection. No mass-effect or midline shift. Age-appropriate parenchymal volume. Thin margin of periventricular T2/FLAIR signal hyperintensity compatible with normal senescent changes. No significant white matter disease burden. Visualized proximal intracranial flow voids appear normal. Ventricles: Unremarkable. No ventriculomegaly. Bones/joints: Unremarkable. Sinuses: Trace mucosal thickening in the ethmoids and maxillary sinuses. Paranasal sinuses otherwise clear. No acute sinusitis. Mastoid air cells: Unremarkable as visualized. No mastoid effusion. Orbits: Unremarkable as visualized. IMPRESSION: No acute findings in the head/brain. Electronically signed by: Bisi Flanagan M.D. 10/26/22 00:01 AM Head CTA 10/25/22 16:08 Exam(s): CTA HEAD With Contrast EXAM: CT Angiography Head With Intravenous Contrast CLINICAL HISTORY: Reason for exam: left facial numbeness, LUE/LLE weakness post op. TECHNIQUE: Axial computed tomographic angiography images of the head with intravenous contrast. CTDI is 14.2 mGy and DLP is 537.02 mGy-cm. Automated exposure control was utilized for the study. A dose lowering technique was utilized adhering to the principles of ALARA. MIP reconstructed images were created and reviewed. CONTRAST: Contrast must be dictated COMPARISON: CT head 10/25/22 FINDINGS: Right internal carotid artery: No acute findings. Intracranial segment is patent with no significant stenosis. No aneurysm. Right anterior cerebral artery: Unremarkable. No occlusion or significant stenosis. No aneurysm. Right middle cerebral artery: Unremarkable. No occlusion or significant stenosis. No aneurysm. Right posterior cerebral artery: Unremarkable. No occlusion or significant stenosis. No aneurysm. Right vertebral artery: Unremarkable as visualized. Left internal carotid artery: No acute findings. Intracranial segment is patent with no significant stenosis. No aneurysm. Left anterior cerebral artery: Unremarkable. No occlusion or significant stenosis. No aneurysm. Left middle cerebral artery: Unremarkable. No occlusion or significant stenosis. No aneurysm. Left posterior cerebral artery: Unremarkable. No occlusion or significant stenosis. No aneurysm. Left vertebral artery: Unremarkable as visualized. Basilar artery: Unremarkable. No occlusion or significant stenosis. No aneurysm. IMPRESSION: 1. Patent intracranial circulation. Electronically signed by: Bisi Flanagan M.D. 10/25/22 19:33 PM
[2022-10-26] MEDS ORDERED: Nursing to Pharmacy Communication SCH ×3 (16:15→21:30)
[2022-10-26] MEDS: AMITRIPTYLINE HCL 10 MG TAB PO SCH (21:25)
[2022-10-26] MEDS: DOCUSATE SODIUM/SENNA 50/8.6MG TAB PO SCH (22:18)
[2022-10-27] MEDS: HYDROmorphone INJ 0.5 MG/0.5 ML SYR IV PRN ×2 (04:10→19:28)
[2022-10-27 06:02] LABS: Hematocrit (blood only) 43.3 % (42.0-52.0); Hemoglobin 14.8 g/dl (14.0-18.0); Mean Corpuscular Hemoglobin 30.5 pg (25.0-34.0); Mean Corpuscular Hgb Conc 34.2 g/dL (32.0-36.0); Mean Corpuscular Volume 89.1 fL (80.0-100.0); Mean Platelet Volume 10.6 fL (9.4-12.4); Platelet Count 273 K/uL (130-400); RDW Coefficient of Variation 13.2 % (11.5-14.5); RDW Standard Deviation 42.9 fL (36.4-46.3); Red Blood Count 4.86 M/uL (4.70-6.10); White Blood Count 23.59 K/ul (4.8-10.8)
[2022-10-27 06:22] LABS: BUN Creatinine Ratio 16.5 (10-20); Calcium 9.1 mg/dl (8.6-10.3); Creatinine Clr Calc Pharmacy 77.8 ml/min; Est GFR (African American) 90.4 ml/min; Magnesium 2.1 mg/dl (1.7-2.4); Phosphorus 3.2 mg/dl (2.5-4.9); Potassium 4.5 mmol/L (3.5-5.1)
[2022-10-27] MEDS: LEVALBUTEROL 1.25MG/0.5ML NEB INH SCH (07:03)
[2022-10-27] MEDS: IPRATROPIUM BROMIDE NEB SOLN 0.02% 2.5 ML VIAL INH SCH (07:03)
[2022-10-27] MEDS: oxyCODONE HCL IR 5 MG TAB (IMMEDIATE RELEASE) PO PRN ×3 (08:37→22:30)
[2022-10-27] MEDS: CHECK SCOPOLAMINE PATCH PLACEMENT SCH ×4 (09:09→22:30)
[2022-10-27] MEDS: ASPIRIN 81 MG ECTAB PO SCH (09:31)
[2022-10-27] MEDS: NICOTINE 21 MG/24 HR TDSY TD SCH ×2 (09:31→19:22)
--- NOTE | 2022-10-27 12:43 | Orthopedic Progress Note ---
Date of Service October 27, 2022 Assessment & Plan (1) Cervical stenosis of spinal canal: Plan: At this time he is completing his work-up for possible stroke. We will maintain the MADDY drain. We are moving towards possible rehab placement when cleared and stable per medicine. Admission and Anticipated Discharge Date Admission Date: October 25, 2022 Subjective Patient's pain is much better controlled. Feels his arm and leg function are improving. Is been ambulating. Swallowing well. Physical Exam Physical Exam: On exam is in the chair at the bedside appears to have more function of the left upper extremity left leg. Results & Data Vital Signs (Past 12 Hours) Vital Signs Temp Pulse Pulse Pulse Resp BP Pulse Ox 10/27/22 12:19 36.7 C 103 H 18 135/92 92 10/27/22 10:16 79 10/27/22 07:14 36.7 C 92 H 20 123/84 93 10/27/22 07:04 102 H 18 94 10/27/22 02:54 36.6 C 96 H 22 114/67 94 10/27/22 02:40 89 18 93 O2 Del Method O2 Flow Rate 10/27/22 12:19 Room Air 10/27/22 10:16 10/27/22 07:14 Nasal Cannula 7.0 10/27/22 07:04 Nasal Cannula 7 10/27/22 02:54 High Flow Nasal Cannula 8 10/27/22 02:40 Nasal Cannula 9
--- NOTE | 2022-10-27 12:50 | Hospitalist Progress Note ---
Date of Service October 27, 2022 Assessment & Plan (1) Toxic encephalopathy: (2) Acute postoperative pulmonary insufficiency: (3) Stroke-like symptoms: (4) S/P spinal surgery: (5) Chronic obstructive pulmonary disease: (6) Tobacco use: (7) Cauda equina syndrome: Plan 62-year-old male with history of cervical spinal stenosis status post ACDF 10/26/22. Postoperatively, he had repeat dose of narcotic analgesics with mental status changes requiring Narcan injection, also noted to have left-sided weakness and numbness. Seen by neurology, stroke work-up was negative with negative MRI brain/CT head and neck but continues to have left-sided symptoms. Reevaluate with neurology today and recommended repeating MRI brain and cervical spine tomorrow. Cervical spinal stenosis status post ACDF 10/25/22-further management per primary team. Pain medication, DVT prophylaxis, activities and diet per primary team. Acute postoperative pulmonary insufficiency- resolved. now on room air. Strokelike symptoms-persistent left-sided hemiparesis with hemiparesthesia since after the procedure, not improving much. Stroke work-up 10/25 was unremarkable with negative MRI brain and CTA head and neck. Echo with no significant abnormality. Discussed with neurology today. Recommended repeating MRI brain and cervical spine without contrast today-ordered. Monitor clinically. Patient is not a candidate for thrombolytics given his surgery. Acute metabolic encephalopathy due to excess narcotics (received 150 mg of fentanyl along with Dilaudid in PACU)-resolved. Currently at baseline. COPD- stable, No COPD exacerbation currently. Continue aerosols. Tobacco abuse-cessation recommended. Continue NicoDerm patch H/o Cauda equina syndrome after back surgery in 2009 requiring being taken back to the OR for emergent surgery. reports at baseline patient walks minimal distance and uses wheelchair secondary to chronic back pain and chronic bilateral knee pain Leukocytosis- ?reactive. Will monitor DVT ppx- per primary team Dispo- per primary team Admission and Anticipated Discharge Date Admission Date: October 25, 2022 Subjective Patient was seen and examined at bedside. States he had a rough night due to pain. Still having pain despite the pain medication. Still has left-sided weakness, left upper extremity is better but still with no strength in left lower extremity. Tolerating diet well. No nausea or vomiting. Voiding without issues. Denies any chest pain or shortness of breath. Coming down on oxygen requirement. Review of Systems Review of Systems: All systems reviewed & are unremarkable except as noted in Subjective Physical Exam Physical Exam: General: Lying comfortably in bed, not in distress, now on room air HEENT: CHIDI RODRIGUEZ. Neck with dressing intact with MADDY drain in place with serosanguineous output Chest: Few wheezing bilaterally CVS: Regular rate and rhythm, normal heart sounds, no murmur Abdomen: Soft, non tender, not distended, normal bowel sounds Neuro: Awake, alert, conversing well, left-sided hemiparesis with hemiparesthesia-persistent although some improvement in left upper extremity Extremities: No cyanosis, clubbing or edema Results & Data Results & Data Vital Signs (Past 12 Hours) Vital Signs Temp Pulse Pulse Pulse Resp BP Pulse Ox 10/27/22 12:19 36.7 C 103 H 18 135/92 92 10/27/22 10:16 79 10/27/22 07:14 36.7 C 92 H 20 123/84 93 10/27/22 07:04 102 H 18 94 10/27/22 02:54 36.6 C 96 H 22 114/67 94 10/27/22 02:40 89 18 93 O2 Del Method O2 Flow Rate 10/27/22 12:19 Room Air 10/27/22 10:16 10/27/22 07:14 Nasal Cannula 7.0 10/27/22 07:04 Nasal Cannula 7 10/27/22 02:54 High Flow Nasal Cannula 8 10/27/22 02:40 Nasal Cannula 9 Laboratory Results Short CBC 10/27/22 Range/Units 05:46 WBC 23.59 H (4.8-10.8) K/ul Hgb 14.8 (14.0-18.0) g/dl Hct 43.3 (42.0-52.0) % Plt Count 273 (130-400) K/uL BMP 10/27/22 05:46 Sodium 137 Potassium 4.5 Chloride 104 Carbon Dioxide 28 BUN 17 Creatinine 1.03 Glucose 122 H Calcium 9.1 Medications Administered Current Inpatient Medications Acetaminophen (Acetaminophen 500 Mg Tab) 1,000 mg PO Q8H PRN PRN Reason: MILD Pain Scale 1,2,3 & Pre PT Stop: 11/24/22 12:08 Al Hydrox/Mg Hydrox/Simethicone (Aluminum/Magnesium Susp 30 Ml Udc) 30 ml PO Q6H PRN PRN Reason: Dyspepsia Stop: 11/24/22 12:08 Albuterol (Ipratropium [place]/Albuterol Respimat Inh) 1 puffs INH Q4R PRN; Protocol PRN Reason: Shortness Of Breath Stop: 11/24/22 12:08 Amitriptyline HCl (Amitriptyline Hcl 10 Mg Tab) 30 mg PO HS [facility] Stop: 11/24/22 20:59 Last Admin: 10/26/22 21:25 Dose: 30 mg Aspirin (Aspirin 81 Mg Ectab) 81 mg PO QAM [facility] Stop: 11/25/22 08:59 Last Admin: 10/27/22 09:31 Dose: 81 mg Bisacodyl (Bisacodyl 10 Mg Supp) 10 mg MD DAILY PRN PRN Reason: Constipation Stop: 11/24/22 12:08 Diphenhydramine HCl (Diphenhydramine Capsule 25 Mg Cap) 25 mg PO Q6H PRN PRN Reason: Allergic Rhinitis/Insomnia Stop: 11/24/22 12:08 Epinephrine (Racepinephrine 2.25% Nebu Soln 0.5 Ml Vial) 0.5 ml INH NOW PRN PRN Reason: If stridor present Famotidine (Famotidine 20 Mg Tab) 20 mg PO Q12H PRN PRN Reason: Dyspepsia Stop: 11/24/22 12:08 Hydromorphone HCl (Hydromorphone Inj 0.5 Mg/0.5 Ml Syr) 0.5 mg IV Q3H PRN PRN Reason: MODERATE Pain (Scale 4,5,6) & Pre PT Stop: 11/08/22 12:08 Last Admin: 10/27/22 04:10 Dose: 0.5 mg Hydroxyzine HCl (Hydroxyzine Hcl 25 Mg Tab) 25 mg PO Q8H PRN PRN Reason: Anxiety Stop: 11/24/22 12:08 Dexamethasone 8 mg/ Syringe 2 mls @ 1 mls/min IV NOW PRN PRN Reason: If stridor present Promethazine HCl 12.5 mg/ (Sodium Chloride) 50.5 mls @ 202 mls/hr IV Q6H PRN PRN Reason: Nausea &/or Vomiting Stop: 11/24/22 12:08 Influenza Virus Vaccine Quadrival (Do Not Administer Flu Vaccine) 1 each N/A PRN PRN PRN Reason: Notification Stop: 11/24/22 12:08 Ipratropium [place] (Ipratropium [place] Neb Soln 0.02% 2.5 Ml Vial) 0.5 mg INH Q6R PRN PRN Reason: Wheezing Stop: 11/24/22 18:59 Levalbuterol HCl (Levalbuterol 1.25mg/0.5ml Neb) 1.25 mg INH Q6R PRN PRN Reason: Shortness Of Breath Or Wheezing Stop: 11/24/22 18:59 Lorazepam (Lorazepam 0.5 Mg Tab) 0.5 mg PO Q8H PRN PRN Reason: Sedation/Anxiety Stop: 11/24/22 12:08 Lorazepam (Lorazepam 2 Mg/1 Ml Vial) 0.5 mg IV Q8H PRN PRN Reason: Sedation/Anxiety Stop: 11/24/22 12:08 Magnesium Hydroxide (Magnesium Hydroxide Susp 30 Ml Udc) 30 ml PO Q24H PRN PRN Reason: Constipation Stop: 11/24/22 12:08 Metoclopramide HCl (Metoclopramide Hcl Inj 5 Mg/Ml 2 Ml Vial) 10 mg IV Q6H PRN PRN Reason: Nausea &/or Vomiting Stop: 11/24/22 12:08 Miscellaneous (Remove Transderm-Scop Patch) 1 each N/A ONE ONE Stop: 10/28/22 06:01 Miscellaneous (Check Scopolamine Patch Placement) 1 each N/A QS [facility] Stop: 10/28/22 05:59 Last Admin: 10/27/22 09:09 Dose: 1 each Miscellaneous (Remove Nicoderm Patch) 1 each N/A DAILY@0859 [facility] Stop: 11/25/22 08:58 Last Admin: 10/27/22 09:30 Dose: 1 each Miscellaneous Information (Pharmacist Discharge Med Rec Consult) 1 each N/A UD PRN PRN Reason: Consult Stop: 11/24/22 18:53 Naloxone HCl (Naloxone Hcl 0.4 Mg/1 Ml Vial/Carp) 0.1 mg IV Q5M PRN PRN Reason: Oversedation/Resp depression Stop: 11/24/22 12:08 Nicotine (Nicotine 21 Mg/24 Hr Tdsy) 21 mg TD QAM [facility] Stop: 11/24/22 18:59 Last Admin: 10/27/22 09:31 Dose: 21 mg Ondansetron HCl (Ondansetron Inj 2 Mg/Ml 2 Ml Vial) 4 mg IV Q6H PRN PRN Reason: Nausea &/or Vomiting Stop: 11/24/22 12:08 Ondansetron HCl (Ondansetron 4 Mg Od Tab) 4 mg PO Q6H PRN PRN Reason: Nausea Stop: 11/24/22 12:08 Oxycodone HCl (Oxycodone Hcl Ir 5 Mg Tab (Immediate Release)) 20 - 30 mg PO Q6 PRN PRN Reason: Pain & Pre PT Stop: 11/08/22 12:08 Last Admin: 10/27/22 08:37 Dose: 30 mg Pneumococcal Polyvalent Vaccine (Do Not Administer Pneumococcal Vaccine) 1 each N/A PRN PRN PRN Reason: Notification Stop: 11/24/22 12:08 Senna/Docusate Sodium (Docusate Sodium/Senna 50/8.6mg Tab) 2 tab PO HS [facility] Stop: 11/24/22 20:59 Last Admin: 10/26/22 22:18 Dose: 2 tab Sodium Biphosphate/Sodium Phosphate (Sod Phosphate/Sod Biphosphate Enema 132 Ml Btl) 132 ml MD ONE PRN PRN Reason: Constipation Stop: 11/24/22 12:08
--- NOTE | 2022-10-27 15:04 | Magnetic Resonance Report ---
MR brain wo con CLINICAL HISTORY: persistent left hemiparesis/paresthesia- r/oCVA TECHNIQUE: Multiplanar and multisequence MR images of the brain were obtained without intravenous con trast. Comparison: Comparison is made to MRI brain 10/25/2022 FINDINGS: No abnormal restricted diffusion is identified. The white matter is unremarkable. Ex vacuo ventriculo megaly and sulcal enlargement is noted compatible with diffuse encephalomalacia. No mass is seen. The re is no mass effect or midline shift. There is no evidence of acute intraparenchymal hemorrhage. No extra axial fluid collections are seen. The corpus callosum, pituitary gland, and cerebellar tonsils appear grossly unremarkable. Flow voids of the major intracranial arterial vessels are identified. The imaged portions of the para nasal sinuses, mastoid air cells, and orbits are unremarkable. IMPRESSION: No acute abnormality and in particular no evidence of acute infarct. ACT 112: Negative or not required by law. Electronically signed by: Florin Benedict M.D. 10/27/2022 3:02 PM
--- NOTE | 2022-10-27 15:39 | Magnetic Resonance Report ---
CERVICAL SPINE MRI HISTORY: persistent lt hemiparesis/paresthesia TECHNIQUE: Multiplanar multisequence MRI of the cervical spine was performed without the use of contr ast. COMPARISON STUDY: Cervical spine CT 10/25/2022. FINDINGS: Postoperative changes again noted consistent with C3-C6 ACDF with C4 corpectomy. Paraverteb ral edema is again noted and likely due to the recent postoperative change. This measures up to 6 mm in thickness. The visualized posterior fossa is unremarkable. The cervical spinal cord is normal and course, caliber, and signal intensity. Mild facet degenerative changes throughout the cervical spine. No definite fracture or subluxation. Mild to moderate disc space narrowing again noted at C6-C7. The C1-C2 interval is intact. No epidural fluid collections identified. C2-C3: No significant central canal or left-sided neural foraminal narrowing. There is mild right-freedom ed neural foraminal narrowing due to the uncovertebral and facet hypertrophy. C3-C4: Small broad-based posterior disc osteophyte complex without significant central canal narrowin g. There is moderate to severe bilateral neural foraminal narrowing due to the uncovertebral facet hy pertrophy. C4-C5: Small broad-based posterior disc osteophyte complex resulting in partial effacement of the ant erior thecal sac without cord deformity. There is minimal central canal narrowing. There is mild to m oderate right and severe left neural foraminal narrowing due to the uncovertebral and facet hypertrop hy. C5-C6: Mild central canal narrowing with the AP diameter measuring 8.7 mm. There is severe bilateral neural foraminal narrowing due to the uncovertebral and facet hypertrophy. C6-C7: No significant central canal narrowing. Mild right and moderate left neural foraminal narrowin g due to the uncovertebral and facet hypertrophy. C7-T1: No significant central canal or neural foraminal narrowing. IMPRESSION: 1. Postoperative changes consistent with C3-C6 ACDF with a C4 corpectomy. Prevertebral edema measures up to 6 mm in thickness. This may represent the recent postoperative change. 2. No fracture or subluxation. 3. No epidural fluid collections. 4. The cervical spinal cord is normal in course, caliber, and signal intensity. 5. Multilevel degenerative changes as described above. ACT 112: Negative or not required by law. Electronically signed by: Rm Gonzalez M.D. 10/27/2022 3:37 PM
[2022-10-27] MEDS: IPRATROPIUM BROMIDE/ALBUTEROL respimat INH INH PRN (15:47)
[2022-10-27] MEDS: ONDANSETRON INJ 2 MG/ML 2 ML VIAL IV PRN (16:02)
[2022-10-27] MEDS ORDERED: SCOPOLAMINE 1 MG TDSY TD ONE (19:45)
[2022-10-27] MEDS: DOCUSATE SODIUM/SENNA 50/8.6MG TAB PO SCH (20:27)
[2022-10-27] MEDS: AMITRIPTYLINE HCL 10 MG TAB PO SCH (20:27)
[2022-10-28] MEDS: HYDROmorphone INJ 0.5 MG/0.5 ML SYR IV PRN (02:36)
[2022-10-28] MEDS ORDERED: CHECK SCOPOLAMINE PATCH PLACEMENT SCH (06:00)
[2022-10-28] MEDS: IPRATROPIUM BROMIDE/ALBUTEROL respimat INH INH PRN ×3 (07:01→15:15)
[2022-10-28 07:20] LABS: Hematocrit (blood only) 44.8 % (42.0-52.0); Hemoglobin 15.3 g/dl (14.0-18.0); Mean Corpuscular Hemoglobin 30.4 pg (25.0-34.0); Mean Corpuscular Hgb Conc 34.2 g/dL (32.0-36.0); Mean Corpuscular Volume 88.9 fL (80.0-100.0); Mean Platelet Volume 10.4 fL (9.4-12.4); Platelet Count 281 K/uL (130-400); RDW Coefficient of Variation 13.4 % (11.5-14.5); RDW Standard Deviation 43.8 fL (36.4-46.3); Red Blood Count 5.04 M/uL (4.70-6.10); White Blood Count 14.79 K/ul (4.8-10.8)
[2022-10-28 07:43] LABS: BUN Creatinine Ratio 15.7 (10-20); C Reactive Protein 0.57 mg/dl (0-0.5); Calcium 8.5 mg/dl (8.6-10.3); Creatinine Clr Calc Pharmacy 74.2 ml/min; Est GFR (African American) 85.4 ml/min; Est GFR (Non-African American) 73.7 ml/min
[2022-10-28] MEDS: ASPIRIN 81 MG ECTAB PO SCH (08:33)
[2022-10-28] MEDS: NICOTINE 21 MG/24 HR TDSY TD SCH (08:33)
[2022-10-28] MEDS ORDERED: STROKE PATIENT DISCHARGE STA (10:53)
--- NOTE | 2022-10-28 10:53 | Orthopedic Progress Note ---
Date of Service October 28, 2022 Assessment & Plan (1) Cervical stenosis of spinal canal: Plan: At this time he is stable from an orthopedic standpoint for rehab placement once cleared by medicine and a bed available. He may remove his collar for comfort but to wear it when up and ambulating. Admission and Anticipated Discharge Date Admission Date: October 25, 2022 Subjective Patient's neck pain is controlled. He is swallowing without difficulty. He has some numbness to the left and left face. He feels he is improving. Physical Exam Physical Exam: On exam he appears comfortable. I did remove his dressing. He feels more comfortable without it. He has good strength testing of right upper extremity left upper extremity demonstrates reasonable range of motion but still deficits to the grasp. Results & Data Vital Signs (Past 12 Hours) Vital Signs Temp Pulse Pulse Pulse Resp BP Pulse Ox 10/28/22 07:30 36.5 C 90 19 139/93 92 10/28/22 07:25 10/28/22 07:25 93 H 10/28/22 07:02 104 H 18 97 10/28/22 03:16 111 H 16 90 10/28/22 02:42 36.6 C 91 H 14 122/82 92 10/28/22 01:27 97 H 10/27/22 23:06 36.6 C 102 H 14 125/85 93 O2 Del Method O2 Flow Rate 10/28/22 07:30 Room Air 10/28/22 07:25 Nasal Cannula 3 10/28/22 07:25 10/28/22 07:02 Nasal Cannula 2 10/28/22 03:16 Nasal Cannula 3 10/28/22 02:42 High Flow Nasal Cannula 3 10/28/22 01:27 10/27/22 23:06 Nasal Cannula 3
[2022-10-28] MEDS: HYDROmorphone INJ 1 MG/ML SYRINGE IV PRN (11:29)
[2022-10-28] MEDS: MAGNESIUM HYDROXIDE SUSP 30 ML UDC PO PRN (11:30)
[2022-10-28] MEDS ORDERED: NALOXONE HCL 0.4 MG/1 ML VIAL/CARP IV ONE (11:32)
--- NOTE | 2022-10-28 11:50 | Hospitalist Progress Note ---
Date of Service October 28, 2022 Assessment & Plan (1) Toxic encephalopathy: (2) Acute postoperative pulmonary insufficiency: (3) Stroke-like symptoms: (4) S/P spinal surgery: (5) Chronic obstructive pulmonary disease: (6) Tobacco use: (7) Cauda equina syndrome: Plan 62-year-old male with history of cervical spinal stenosis status post ACDF 10/26/22. Postoperatively, he had repeat dose of narcotic analgesics with mental status changes requiring Narcan injection, also noted to have left-sided weakness and numbness. Seen by neurology, stroke work-up was negative with negative MRI brain/CT head and neck but continued to have left-sided symptoms. Reevaluate with neurology and recommended repeating MRI brain which is negative for stroke or acute abnormality, MRI cervical spine with postop changes. Cervical spinal stenosis status post ACDF 10/25/22-further management per primary team. Pain medication, DVT prophylaxis, activities and diet per primary team. Acute postoperative pulmonary insufficiency- resolved. now on room air. Strokelike symptoms- persistent left-sided hemiparesis with hemiparesthesia since after the procedure, now impoving. Stroke work-up 10/25 was unremarkable with negative MRI brain and CTA head and neck. Echo with no significant abnormality. Discussed with neurology who recommended repeating imaging- MRI brain no acute stroke, MRI Cervical spine with only postop changes. Symptoms improving. PT/OT eval. Acute metabolic encephalopathy due to excess narcotics (received 150 mg of fentanyl along with Dilaudid in PACU)-resolved. Currently at baseline. COPD- stable, No COPD exacerbation currently. Continue aerosols. Tobacco abuse-cessation recommended. Continue NicoDerm patch H/o Cauda equina syndrome after back surgery in 2009 requiring being taken back to the OR for emergent surgery. reports at baseline patient walks minimal distance and uses wheelchair secondary to chronic back pain and chronic bilateral knee pain Leukocytosis-likely reactive, now improving off of antibiotics. Pro-Chas negative. CRP minimally elevated. DVT ppx- per primary team Dispo- per primary team. Patient is stable to go to rehab Admission and Anticipated Discharge Date Admission Date: October 25, 2022 Subjective Patient was seen and examined at bedside. Still with pain but tolerable. His left-sided weakness is improving, still has some numbness. Tolerating diet well. Voiding without issues. Had bowel movement. No chest pain or shortness of breath. Off of oxygen and on room air. Review of Systems Review of Systems: All systems reviewed & are unremarkable except as noted in Subjective Physical Exam Physical Exam: General: Lying comfortably in bed, not in distress, now on room air HEENT: CHIDI RODRIGUEZ. Cervical collar in place Chest: Fair breath sounds bilaterally with intermittent scattered wheezes CVS: Regular rate and rhythm, normal heart sounds, no murmur Abdomen: Soft, non tender, not distended, normal bowel sounds Neuro: Awake, alert, conversing well, left-sided hemiparesis improving. LLE strength 3/5, LUE 4/5. Decreased sensation on left side compared to right side Extremities: No cyanosis, clubbing or edema Results & Data Results & Data Vital Signs (Past 12 Hours) Vital Signs Temp Pulse Pulse Pulse Resp BP Pulse Ox 10/28/22 11:44 36.6 C 96 H 15 145/86 H 92 10/28/22 11:17 97 H 18 94 10/28/22 07:30 36.5 C 90 19 139/93 92 10/28/22 07:25 10/28/22 07:25 93 H 10/28/22 07:02 104 H 18 97 10/28/22 03:16 111 H 16 90 10/28/22 02:42 36.6 C 91 H 14 122/82 92 10/28/22 01:27 97 H O2 Del Method O2 Flow Rate 10/28/22 11:44 Room Air 10/28/22 11:17 Room Air 10/28/22 07:30 Room Air 10/28/22 07:25 Nasal Cannula 3 10/28/22 07:25 10/28/22 07:02 Nasal Cannula 2 10/28/22 03:16 Nasal Cannula 3 10/28/22 02:42 High Flow Nasal Cannula 3 10/28/22 01:27 Laboratory Results Short CBC 10/28/22 Range/Units 06:53 WBC 14.79 H (4.8-10.8) K/ul Hgb 15.3 (14.0-18.0) g/dl Hct 44.8 (42.0-52.0) % Plt Count 281 (130-400) K/uL BMP 10/28/22 06:53 Sodium 138 Potassium 4.0 Chloride 103 Carbon Dioxide 29 BUN 17 Creatinine 1.08 Glucose 86 Calcium 8.5 L Medications Administered Current Inpatient Medications Acetaminophen (Acetaminophen 500 Mg Tab) 1,000 mg PO Q8H PRN PRN Reason: MILD Pain Scale 1,2,3 & Pre PT Stop: 11/24/22 12:08 Al Hydrox/Mg Hydrox/Simethicone (Aluminum/Magnesium Susp 30 Ml Udc) 30 ml PO Q6H PRN PRN Reason: Dyspepsia Stop: 11/24/22 12:08 Albuterol (Ipratropium [place]/Albuterol Respimat Inh) 1 puffs INH Q4R PRN; Protocol PRN Reason: Shortness Of Breath Stop: 11/24/22 12:08 Last Admin: 10/28/22 11:17 Dose: 1 puffs Amitriptyline HCl (Amitriptyline Hcl 10 Mg Tab) 30 mg PO HS [facility] Stop: 11/24/22 20:59 Last Admin: 10/27/22 20:27 Dose: 30 mg Aspirin (Aspirin 81 Mg Ectab) 81 mg PO QAM [facility] Stop: 11/25/22 08:59 Last Admin: 10/28/22 08:33 Dose: 81 mg Bisacodyl (Bisacodyl 10 Mg Supp) 10 mg [place] DAILY PRN PRN Reason: Constipation Stop: 11/24/22 12:08 Diphenhydramine HCl (Diphenhydramine Capsule 25 Mg Cap) 25 mg PO Q6H PRN PRN Reason: Allergic Rhinitis/Insomnia Stop: 11/24/22 12:08 Epinephrine (Racepinephrine 2.25% Nebu Soln 0.5 Ml Vial) 0.5 ml INH NOW PRN PRN Reason: If stridor present Famotidine (Famotidine 20 Mg Tab) 20 mg PO Q12H PRN PRN Reason: Dyspepsia Stop: 11/24/22 12:08 Hydromorphone HCl (Hydromorphone Inj 0.5 Mg/0.5 Ml Syr) 0.5 mg IV Q3H PRN PRN Reason: MODERATE Pain (Scale 4,5,6) & Pre PT Stop: 11/08/22 12:08 Last Admin: 10/28/22 02:36 Dose: 0.5 mg Hydromorphone HCl (Hydromorphone Inj 1 Mg/Ml Syringe) 1 mg IV Q3H PRN PRN Reason: Pain 7,8,9,10 Stop: 11/11/22 11:26 Last Admin: 10/28/22 11:29 Dose: 1 mg Hydroxyzine HCl (Hydroxyzine Hcl 25 Mg Tab) 25 mg PO Q8H PRN PRN Reason: Anxiety Stop: 11/24/22 12:08 Dexamethasone 8 mg/ Syringe 2 mls @ 1 mls/min IV NOW PRN PRN Reason: If stridor present Promethazine HCl 12.5 mg/ (Sodium Chloride) 50.5 mls @ 202 mls/hr IV Q6H PRN PRN Reason: Nausea &/or Vomiting Stop: 11/24/22 12:08 Influenza Virus Vaccine Quadrival (Do Not Administer Flu Vaccine) 1 each N/A PRN PRN PRN Reason: Notification Stop: 11/24/22 12:08 Ipratropium [place] (Ipratropium [place] Neb Soln 0.02% 2.5 Ml Vial) 0.5 mg INH Q6R PRN PRN Reason: Wheezing Stop: 11/24/22 18:59 Levalbuterol HCl (Levalbuterol 1.25mg/0.5ml Neb) 1.25 mg INH Q6R PRN PRN Reason: Shortness Of Breath Or Wheezing Stop: 11/24/22 18:59 Lorazepam (Lorazepam 0.5 Mg Tab) 0.5 mg PO Q8H PRN PRN Reason: Sedation/Anxiety Stop: 11/24/22 12:08 Lorazepam (Lorazepam 2 Mg/1 Ml Vial) 0.5 mg IV Q8H PRN PRN Reason: Sedation/Anxiety Stop: 11/24/22 12:08 Magnesium Hydroxide (Magnesium Hydroxide Susp 30 Ml Udc) 30 ml PO Q24H PRN PRN Reason: Constipation Stop: 11/24/22 12:08 Last Admin: 10/28/22 11:30 Dose: 30 ml Metoclopramide HCl (Metoclopramide Hcl Inj 5 Mg/Ml 2 Ml Vial) 10 mg IV Q6H PRN PRN Reason: Nausea &/or Vomiting Stop: 11/24/22 12:08 Miscellaneous (Remove Nicoderm Patch) 1 each N/A DAILY@0859 [facility] Stop: 11/25/22 08:58 Last Admin: 10/28/22 08:32 Dose: 1 each Naloxone HCl (Naloxone Hcl 0.4 Mg/1 Ml Vial/Carp) 0.1 mg IV Q5M PRN PRN Reason: Oversedation/Resp depression Stop: 11/24/22 12:08 Nicotine (Nicotine 21 Mg/24 Hr Tdsy) 21 mg TD QAM [facility] Stop: 11/26/22 18:44 Last Admin: 10/28/22 08:33 Dose: 21 mg Ondansetron HCl (Ondansetron Inj 2 Mg/Ml 2 Ml Vial) 4 mg IV Q6H PRN PRN Reason: Nausea &/or Vomiting Stop: 11/24/22 12:08 Last Admin: 10/27/22 16:02 Dose: 4 mg Ondansetron HCl (Ondansetron 4 Mg Od Tab) 4 mg PO Q6H PRN PRN Reason: Nausea Stop: 11/24/22 12:08 Oxycodone HCl (Oxycodone Hcl Ir 5 Mg Tab (Immediate Release)) 20 - 30 mg PO Q6 PRN PRN Reason: Pain & Pre PT Stop: 11/08/22 12:08 Last Admin: 10/27/22 22:30 Dose: 20 mg Pneumococcal Polyvalent Vaccine (Do Not Administer Pneumococcal Vaccine) 1 each N/A PRN PRN PRN Reason: Notification Stop: 11/24/22 12:08 Senna/Docusate Sodium (Docusate Sodium/Senna 50/8.6mg Tab) 2 tab PO HS [facility] Stop: 11/24/22 20:59 Last Admin: 10/27/22 20:27 Dose: 2 tab Sodium Biphosphate/Sodium Phosphate (Sod Phosphate/Sod Biphosphate Enema 132 Ml Btl) 132 ml VT ONE PRN PRN Reason: Constipation Stop: 11/24/22 12:08
[2022-10-28] MEDS: oxyCODONE HCL IR 5 MG TAB (IMMEDIATE RELEASE) PO PRN (16:53)
[2022-10-28] MEDS: LEVALBUTEROL 1.25MG/0.5ML NEB INH PRN (19:32)
[2022-10-28] MEDS: IPRATROPIUM BROMIDE NEB SOLN 0.02% 2.5 ML VIAL INH PRN (19:32)
[2022-10-28] MEDS: DOCUSATE SODIUM/SENNA 50/8.6MG TAB PO SCH (21:40)
[2022-10-28] MEDS: AMITRIPTYLINE HCL 10 MG TAB PO SCH (21:40)
[2022-10-29] MEDS: ASPIRIN 81 MG ECTAB PO SCH (08:42)
[2022-10-29] MEDS: NICOTINE 21 MG/24 HR TDSY TD SCH (08:43)
[2022-10-29] MEDS: AZITHROMYCIN 250 MG TAB PO SCH ×2 (10:02→19:56)
--- NOTE | 2022-10-29 10:33 | XRay Report ---
XR chest 2V PA/lateral CLINICAL HISTORY: productive cough, SOB- r/o PNA COMPARISON STUDY: Chest radiograph October 25, 2022. FINDINGS: Anterior cervical spine fusion is incidentally noted. No pneumothorax or pleural effusion i s present. Linear bibasilar densities favor atelectasis. There is no consolidation to suggest pneumon ia. Cardiomegaly is again noted. There is no evidence for pulmonary edema. IMPRESSION: 1. No consolidation to suggest pneumonia. Linear bibasilar densities suggestive of atelectasis. 2. Cardiomegaly without evidence for pulmonary edema. ACT 112: Negative or not required by law. Electronically signed by: Rafita Palomino M.D. 10/29/2022 10:31 AM
--- NOTE | 2022-10-29 11:10 | Orthopedic Progress Note ---
Date of Service October 29, 2022 Assessment & Plan (1) Postoperative hematoma: Plan: Patient's drain did fall out yesterday. Since that time he appears to be developing a worsening hematoma. He is having more difficulty swallowing. He is not in distress at this point however would like to perform an urgent evacuation of the hematoma. He is NPO. He is scheduled for the OR today. Admission and Anticipated Discharge Date Admission Date: October 25, 2022 Subjective Patient began noticing difficulty swallowing last night. Having some difficulty with breathing. Physical Exam Physical Exam: Patient is sitting up at bedside. He is has improved strength testing upper extremity. I do appreciate more swelling to the right anterior aspect cervical spine compared to yesterday. Results & Data Vital Signs (Past 12 Hours) Vital Signs Temp Pulse Pulse Pulse Resp BP Pulse Ox 10/29/22 09:00 36.6 C 95 H 18 131/92 95 10/29/22 07:28 101 H 10/29/22 07:09 36.6 C 82 19 142/102 H 95 10/29/22 07:00 71 18 10/29/22 02:52 36.6 C 84 18 112/75 95 10/29/22 02:50 84 16 93 10/29/22 00:38 106 H O2 Del Method O2 Flow Rate 10/29/22 09:00 Nasal Cannula 3 10/29/22 07:28 10/29/22 07:09 Nasal Cannula 3.0 10/29/22 07:00 Room Air 10/29/22 02:52 Nasal Cannula 3 10/29/22 02:50 Nasal Cannula 3 10/29/22 00:38
--- NOTE | 2022-10-29 11:22 | Hospitalist Progress Note ---
Date of Service October 29, 2022 Assessment & Plan (1) Toxic encephalopathy: (2) Acute postoperative pulmonary insufficiency: (3) Stroke-like symptoms: (4) S/P spinal surgery: (5) Chronic obstructive pulmonary disease: (6) Tobacco use: (7) Cauda equina syndrome: Plan 62-year-old male with history of cervical spinal stenosis status post ACDF 10/26/22. Postoperatively, he had repeat dose of narcotic analgesics with mental status changes requiring Narcan injection, also noted to have left-sided weakness and numbness. Seen by neurology, stroke work-up was negative with negative MRI brain/CT head and neck but continued to have left-sided symptoms. Reevaluate with neurology and recommended repeating MRI brain which is negative for stroke or acute abnormality, MRI cervical spine with postop changes. Cervical spinal stenosis status post ACDF 10/25/22-further management per primary team. Pain medication, DVT prophylaxis, activities and diet per primary team. Postoperative hematoma-patient's drain fell out 2 days back and since then appears to be developing worsened hematoma. Complains of increasing neck pain and difficulty breathing. Seen by orthopedics and plan for urgent evacuation of hematoma later today. N.p.o. for the same. Further management per orthopedics. COPD with bronchitis- having productive cough and some shortness of breath. Chest x-ray with no pneumonia but atelectasis. Will get sputum cultures, start on azithromycin. Continue aerosols. Incentive spirometry. Acute postoperative pulmonary insufficiency- resolved. Strokelike symptoms- persistent left-sided hemiparesis with hemiparesthesia since after the procedure, now impoving. Stroke work-up 10/25 was unremarkable with negative MRI brain and CTA head and neck. Echo with no significant abnormality. Discussed with neurology who recommended repeating imaging- MRI brain no acute stroke, MRI Cervical spine with only postop changes. Symptoms improving spontaneously. PT/OT eval. Acute metabolic encephalopathy due to excess narcotics (received 150 mg of fentanyl along with Dilaudid in PACU)-resolved. Currently at baseline. Tobacco abuse-cessation recommended. Continue NicoDerm patch H/o Cauda equina syndrome after back surgery in 2009 requiring being taken back to the OR for emergent surgery. reports at baseline patient walks minimal distance and uses wheelchair secondary to chronic back pain and chronic bilateral knee pain Leukocytosis-likely reactive, now improving off of antibiotics. Pro-Chas negative. CRP minimally elevated. DVT ppx- per primary team Dispo- per primary team. Plan for or today for postop hematoma Admission and Anticipated Discharge Date Admission Date: October 25, 2022 Subjective Patient was seen and examined at bedside. He complains of neck pain and difficulty breathing since last night. Also has productive cough. No chest pain or dysphagia. No dysphonia. No fever, chills, nausea or vomiting. His le ft-sided symptoms are improving spontaneously. Review of Systems Review of Systems: All systems reviewed & are unremarkable except as noted in Subjective Physical Exam Physical Exam: General: Lying comfortably in bed, not in acute distress, now SC HEENT: JENNIFER, MMMajo. Cervical collar in place Chest: Fair breath sounds bilaterally with intermittent scattered wheezes CVS: Regular rate and rhythm, normal heart sounds, no murmur Abdomen: Soft, non tender, not distended, normal bowel sounds Neuro: Awake, alert, conversing well, left-sided hemiparesis improving. LLE strength 4/5, LUE 4/5. Decreased sensation on left side compared to right side Extremities: No cyanosis, clubbing or edema Results & Data Results & Data Vital Signs (Past 12 Hours) Vital Signs Temp Pulse Pulse Pulse Resp BP Pulse Ox 10/29/22 11:06 118 H 19 97 10/29/22 09:00 36.6 C 95 H 18 131/92 95 10/29/22 07:28 101 H 10/29/22 07:09 36.6 C 82 19 142/102 H 95 10/29/22 07:00 71 18 10/29/22 02:52 36.6 C 84 18 112/75 95 10/29/22 02:50 84 16 93 10/29/22 00:38 106 H O2 Del Method O2 Flow Rate FiO2 10/29/22 11:06 Room Air 21 10/29/22 09:00 Nasal Cannula 3 10/29/22 07:28 10/29/22 07:09 Nasal Cannula 3.0 10/29/22 07:00 Room Air 10/29/22 02:52 Nasal Cannula 3 10/29/22 02:50 Nasal Cannula 3 10/29/22 00:38 Medications Administered Current Inpatient Medications Acetaminophen (Acetaminophen 500 Mg Tab) 1,000 mg PO Q8H PRN PRN Reason: MILD Pain Scale 1,2,3 & Pre PT Stop: 11/24/22 12:08 Last Admin: 10/29/22 08:42 Dose: 1,000 mg Al Hydrox/Mg Hydrox/Simethicone (Aluminum/Magnesium Susp 30 Ml Udc) 30 ml PO Q6H PRN PRN Reason: Dyspepsia Stop: 11/24/22 12:08 Albuterol (Ipratropium [place]/Albuterol Respimat Inh) 1 puffs INH Q4R PRN; Protocol PRN Reason: Shortness Of Breath Stop: 11/24/22 12:08 Last Admin: 10/28/22 15:15 Dose: 1 puffs Amitriptyline HCl (Amitriptyline Hcl 10 Mg Tab) 30 mg PO [facility] Stop: 11/24/22 20:59 Last Admin: 10/28/22 21:40 Dose: 30 mg Aspirin (Aspirin 81 Mg Ectab) [facility] [place]: 11/25/22 08:59 Last Admin: 10/29/22 08:42 Dose: 81 mg Azithromycin (Azithromycin 250 Mg Tab) 500 mg PO [facility] Stop: 11/05/22 09:14 Last Admin: 10/29/22 10:02 Dose: 500 mg Bisacodyl (Bisacodyl 10 Mg Supp) 10 mg HI DAILY PRN PRN Reason: Constipation Stop: 11/24/22 12:08 Last Admin: 10/28/22 16:54 Dose: 10 mg Diphenhydramine HCl (Diphenhydramine Capsule 25 Mg Cap) 25 mg PO Q6H PRN PRN Reason: Allergic Rhinitis/Insomnia Stop: 11/24/22 12:08 Epinephrine (Racepinephrine 2.25% Nebu Soln 0.5 Ml Vial) 0.5 ml INH NOW PRN PRN Reason: If stridor present Famotidine (Famotidine 20 Mg Tab) 20 mg PO Q12H PRN PRN Reason: Dyspepsia Stop: 11/24/22 12:08 Hydromorphone HCl (Hydromorphone Inj 0.5 Mg/0.5 Ml Syr) 0.5 mg IV Q3H PRN PRN Reason: MODERATE Pain (Scale 4,5,6) & Pre PT Stop: 11/08/22 12:08 Last Admin: 10/28/22 02:36 Dose: 0.5 mg Hydromorphone HCl (Hydromorphone Inj 1 Mg/Ml Syringe) 1 mg IV Q3H PRN PRN Reason: Pain 7,8,9,10 Stop: 11/11/22 11:26 Last Admin: 10/28/22 11:29 Dose: 1 mg Hydroxyzine HCl (Hydroxyzine Hcl 25 Mg Tab) 25 mg PO Q8H PRN PRN Reason: Anxiety Stop: 11/24/22 12:08 Dexamethasone 8 mg/ Syringe 2 mls @ 1 mls/min IV NOW PRN PRN Reason: If stridor present Promethazine HCl 12.5 mg/ (Sodium Chloride) 50.5 mls @ 202 mls/hr IV Q6H PRN PRN Reason: Nausea &/or Vomiting Stop: 11/24/22 12:08 Influenza Virus Vaccine Quadrival (Do Not Administer Flu Vaccine) 1 each N/A PRN PRN PRN Reason: Notification Stop: 11/24/22 12:08 Ipratropium [place] (Ipratropium [place] Neb Soln 0.02% 2.5 Ml Vial) 0.5 mg INH Q6R PRN PRN Reason: Wheezing Stop: 11/24/22 18:59 Last Admin: 10/28/22 19:32 Dose: 0.5 mg Levalbuterol HCl (Levalbuterol 1.25mg/0.5ml Neb) 1.25 mg INH Q6R PRN PRN Reason: Shortness Of Breath Or Wheezing Stop: 11/24/22 18:59 Last Admin: 10/28/22 19:32 Dose: 1.25 mg Lorazepam (Lorazepam 0.5 Mg Tab) 0.5 mg PO Q8H PRN PRN Reason: Sedation/Anxiety Stop: 11/24/22 12:08 Lorazepam (Lorazepam 2 Mg/1 Ml Vial) 0.5 mg IV Q8H PRN PRN Reason: Sedation/Anxiety Stop: 11/24/22 12:08 Magnesium Hydroxide (Magnesium Hydroxide Susp 30 Ml Udc) 30 ml PO Q24H PRN PRN Reason: Constipation Stop: 11/24/22 12:08 Last Admin: 10/28/22 11:30 Dose: 30 ml Metoclopramide HCl (Metoclopramide Hcl Inj 5 Mg/Ml 2 Ml Vial) 10 mg IV Q6H PRN PRN Reason: Nausea &/or Vomiting Stop: 11/24/22 12:08 Miscellaneous (Remove Nicoderm Patch) 1 each N/A DAILY@0859 [facility] Stop: 11/25/22 08:58 Last Admin: 10/29/22 08:42 Dose: 1 each Naloxone HCl (Naloxone Hcl 0.4 Mg/1 Ml Vial/Carp) 0.1 mg IV Q5M PRN PRN Reason: Oversedation/Resp depression Stop: 11/24/22 12:08 Nicotine (Nicotine 21 Mg/24 Hr Tdsy) 21 mg TD QAM [facility] Stop: 11/26/22 18:44 Last Admin: 10/29/22 08:43 Dose: 21 mg Ondansetron HCl (Ondansetron Inj 2 Mg/Ml 2 Ml Vial) 4 mg IV Q6H PRN PRN Reason: Nausea &/or Vomiting Stop: 11/24/22 12:08 Last Admin: 10/27/22 16:02 Dose: 4 mg Ondansetron HCl (Ondansetron 4 Mg Od Tab) 4 mg PO Q6H PRN PRN Reason: Nausea Stop: 11/24/22 12:08 Oxycodone HCl (Oxycodone Hcl Ir 5 Mg Tab (Immediate Release)) 20 - 30 mg PO Q6 PRN PRN Reason: Pain & Pre PT Stop: 11/08/22 12:08 Last Admin: 10/29/22 00:00 Dose: 30 mg Pneumococcal Polyvalent Vaccine (Do Not Administer Pneumococcal Vaccine) 1 each N/A PRN PRN PRN Reason: Notification Stop: 11/24/22 12:08 Senna/Docusate Sodium (Docusate Sodium/Senna 50/8.6mg Tab) 2 tab PO HS [facility] Stop: 11/24/22 20:59 Last Admin: 10/28/22 21:40 Dose: 2 tab Sodium Biphosphate/Sodium Phosphate (Sod Phosphate/Sod Biphosphate Enema 132 Ml Btl) 132 ml HI ONE PRN PRN Reason: Constipation Stop: 11/24/22 12:08
[2022-10-29] MEDS ORDERED: ceFAZolin 330 MG/ML 1 GM VIAL ONE ×2 (12:58→13:38)
--- NOTE | 2022-10-29 13:02 | Anesthesiology Consultation ---
Date of Service October 29, 2022 Assessment & Plan Chart Review Chart Review: Acceptable Risk for Surgery and Patient NOT seen in Pre Admission Testing Consults Requested none ASA [id number] Proposed Anesthesia Anesthesia Type: General Risk / Benefits Reviewed With: PT / POA / Parent / Guardian, Accepts Plan and Informed Consent Obtained History Surgery Operation Date: 10/25/22 07:45 Proposed Procedures p C6-C7 Anterior Cervical Discectomy Fusion, C4-C7 Fusion, C5 Corpectomy, Spinal Cord Monitoring - Sung Hummel DO Operation Date: 10/29/22 14:00 Proposed Procedures p Evacuation of Cervical Hematoma - Sung Hummel DO Height/Weight Height: 5 ft 7 in Weight: 83.4 kg Allergies Allergy/AdvReac Type Severity Reaction Status Date / Time tizanidine Allergy Unknown Unknown Verified 10/26/22 21:29 fentanyl AdvReac Severe reacts Verified 10/26/22 21:29 poorly Medications Home Medications Medication Instructions Recorded Confirmed Last Taken carisoprodol 350 mg tablet (Soma) 350 mg PO TID PRN muscle spasms 10/06/22 10/25/22 10/24/22 22:00 ipratropium 20 mcg-albuterol 100 1 puff inhalation Q4H PRN 10/06/22 10/25/22 10/25/22 04:00 mcg/actuation mist for inhalation Shortness Of Breath (Combivent Respimat) oxycodone 10 mg tablet 30 mg PO QID 10/06/22 10/25/22 10/25/22 04:00 amitriptyline 10 mg tablet 30 mg PO HS 10/11/22 10/25/22 10/24/22 22:00 oxycodone 15 mg tablet 15 mg PO Q6 PRN pain #60 tabs 10/28/22 Unknown Active Medications Generic Name Dose Route Start Last Admin Trade Name Freq PRN Reason Stop Dose Admin Acetaminophen 1,000 mg 10/25/22 12:09 10/29/22 08:42 Acetaminophen 500 Mg Tab PO 11/24/22 12:08 1,000 mg Q8H PRN Administration MILD Pain Scale 1,2,3 & Pre PT Albuterol 1 puffs 10/25/22 12:09 10/28/22 15:15 Ipratropium [place]/Albuterol Respimat Inh INH 11/24/22 12:08 1 puffs Q4R PRN Administration Shortness Of Breath Protocol Amitriptyline HCl 30 mg 10/25/22 21:00 10/28/22 21:40 Amitriptyline Hcl 10 Mg Tab PO 11/24/22 20:59 30 mg HS SERGEY Administration Aspirin 81 mg 10/26/22 09:00 10/29/22 08:42 Aspirin 81 Mg Ectab PO 11/25/22 08:59 81 mg QAM SERGEY Administration Azithromycin 500 mg 10/29/22 09:15 10/29/22 10:02 Azithromycin 250 Mg Tab PO 11/05/22 09:14 500 mg QAM SERGEY Administration Bisacodyl 10 mg 10/25/22 12:09 10/28/22 16:54 Bisacodyl 10 Mg Supp NM 11/24/22 12:08 10 mg DAILY PRN Administration Constipation Hydromorphone HCl 0.5 mg 10/25/22 12:09 10/28/22 02:36 Hydromorphone Inj 0.5 Mg/0.5 Ml Syr IV 11/08/22 12:08 0.5 mg Q3H PRN Administration MODERATE Pain (Scale 4,5,6) & Pre PT Hydromorphone HCl 1 mg 10/28/22 11:27 10/28/22 11:29 Hydromorphone Inj 1 Mg/Ml Syringe IV 11/11/22 11:26 1 mg Q3H PRN Administration Pain 7,8,9,10 Ipratropium [place] 0.5 mg 10/27/22 09:13 10/28/22 19:32 Ipratropium [place] Neb Soln 0.02% 2.5 Ml Vial INH 11/24/22 18:59 0.5 mg Q6R PRN Administration Wheezing Levalbuterol HCl 1.25 mg 10/27/22 09:13 10/28/22 19:32 Levalbuterol 1.25mg/0.5ml Neb INH 11/24/22 18:59 1.25 mg Q6R PRN Administration Shortness Of Breath Or Wheezing Magnesium Hydroxide 30 ml 10/25/22 12:09 10/28/22 11:30 Magnesium Hydroxide Susp 30 Ml Udc PO 11/24/22 12:08 30 ml Q24H PRN Administration Constipation Miscellaneous 1 each 10/26/22 08:59 10/29/22 08:42 Remove Nicoderm Patch N/A 11/25/22 08:58 1 each DAILY@0859 SERGEY Administration Nicotine 21 mg 10/27/22 18:45 10/29/22 08:43 Nicotine 21 Mg/24 Hr Tdsy TD 11/26/22 18:44 21 mg QAM SERGEY Administration Ondansetron HCl 4 mg 10/25/22 12:09 10/27/22 16:02 Ondansetron Inj 2 Mg/Ml 2 Ml Vial IV 11/24/22 12:08 4 mg Q6H PRN Administration Nausea &/or Vomiting Oxycodone HCl 20 - 30 mg 10/26/22 14:21 10/29/22 00:00 Oxycodone Hcl Ir 5 Mg Tab (Immediate Release) PO 11/08/22 12:08 30 mg Q6 PRN Administration Pain & Pre PT Senna/Docusate Sodium 2 tab 10/25/22 21:00 10/28/22 21:40 Docusate Sodium/Senna 50/8.6mg Tab PO 11/24/22 20:59 2 tab HS SERGEY Administration NPO Date Last Intake of Fluids: 10/29/22 Time Last Intake of Fluids: 09:00 Date Last Intake of Solids: 10/29/22 Time Last Intake of Solids: 07:30 Past Medical History Medical History Cauda equina syndrome caused by his spinal cord surgery (2009); mostly uses wheelchair outside of home, walker used at home Chronic obstructive pulmonary disease inh prn breathing stable Degenerative joint disease Bilateral knee pain as well History of COVID-19 beginning 2021, tested at [facility] clinic in [place], not hosp; no symptoms, was sick "so they both tested" Hx MRSA infection ~10 years ago, dx in [place], found in nares, tx and cleared. Myocardial Infarction ~21 years ago, in [place], "stress heart attack", pushed air bubble into heart during cath, causing "major heart attack" - No stents or bypass needed - Negative stress test for ischemia 2012 - No routine cardio- just PCP Osteoarthritis Exercise / Class Metabolic Activity II 4-5 Yardwork/Stairs/Walk up hill Past Family History Family History Mother Lupus Sister Lupus Father History of Parkinson's disease Past Surgical History Surgical History History of cardiac cath ~21 years ago, "light heart attack, pushed an air bubble into his heart during the cath causing a major heart attack," done in [place]; does not follow cardio History of esophagogastroduodenoscopy (EGD) Hx of anterior cruciate ligament tear reconstruction Hx of arthroscopy of knee x15 between both knees Hx of colonoscopy Hx of elbow surgery LT. Hx of knee surgery x3-bilat. knees Hx of lumbosacral spine surgery 2 cages placed into back from spinal cord injury Hx of shoulder surgery open surgery to removed portion of collar bone Hx of tonsillectomy Past Anesthesia History No Hx of Anesthesia Complications and No Family Hx of Anesthesia Complications History of PONV No Hx of PONV and No Hx of Motion Sickness Social History Smoking Status: Current every day smoker tobacco type: cigarettes Smoking cigarettes per day: 10cigs/day; trying to quit- does wear nicotine patches Do You Dip or Chew Tobacco: No Hx Alcohol Use: No Hx Substance Use: No substance use type: does not use Physical Exam Vital Signs Last Vital Signs Temp 36.7 C 10/29/22 11:31 Pulse 95 H 10/29/22 11:31 Resp 18 10/29/22 11:31 BP 148/96 H 10/29/22 11:31 Pulse Ox 92 10/29/22 11:31 O2 Del Method Nasal Cannula 10/29/22 11:31 O2 Flow Rate 3.0 10/29/22 11:31 FiO2 21 10/29/22 11:06 Constitutional + acute distress (appears anxious due to difficulty swallowing); not obese pt has dysphagia and appears anxious ENMT Mouth: no dentition abnormality Thyromental Distance: > or= 3.5 Finger Breadths Mallampati Class: II Neck trachea midline Pt's right neck is swollen 2ndary to surgical wound hematoma Respiratory normal respiratory effort Auscultation: lungs clear to auscultation bilaterally and + diminished lung sounds Cardiovascular Rate/Rhythm: regular rate and regular rhythm Heart Sounds: no murmur Vessels: no carotid bruit Musculoskeletal Spine: + limited cervical ROM and + pain with cervical ROM Extremities: full ROM of extremities Neurologic moves all extremities Motor/Sensory: no sensory deficit Psychiatric Orientation: alert and oriented x 3 Testing Laboratory Results 10/28/22 06:53 10/28/22 06:53 Hemoglobin A1c 5.7 % (4.5-5.6) H 10/26/22 06:29 10/29/22 10:14 Gram Stain - Final Sputum, Expectorated
[2022-10-29] MEDS ORDERED: PROPOFOL IV EMULSION 10 MG/ML 20 ML VIAL IV ONE ×2 (13:12→14:31)
[2022-10-29] MEDS ORDERED: SUCCINYLCHOLINE CHLORIDE 20 MG/ML 10 ML VIAL IV ONE (13:14)
[2022-10-29] MEDS ORDERED: fentaNYL citrate PF 100 MCG/2 ML VIAL ONE (13:37)
[2022-10-29] MEDS ORDERED: NALOXONE HCL 0.4 MG/1 ML VIAL/CARP IV PRN (13:44)
[2022-10-29] MEDS ORDERED: LABETALOL HCL IV 5 MG/ML 20ML IV PRN (13:44)
[2022-10-29] MEDS ORDERED: ATROPINE SULFATE 0.1 MG/ML 10ML SYR IV PRN (13:44)
[2022-10-29] MEDS ORDERED: PROMETHAZINE HCL 12.5 MG in SODIUM CHLORIDE 0.9% 50 ML IV PRN (13:44)
[2022-10-29] MEDS ORDERED: FLUMAZENIL 0.1 MG/1 ML 10 ML VIAL IV PRN (13:44)
[2022-10-29] MEDS ORDERED: ROCURONIUM BROMIDE 10 MG/ML 5 ML VIAL IV ONE ×2 (14:06→14:31)
[2022-10-29] MEDS ORDERED: ePHEDrine sulfate 50 MG/ML AMP ONE (14:19)
[2022-10-29] MEDS ORDERED: PHENYLEPHRINE 100MCG/ML 5ML SYR ONE (14:19)
--- NOTE | 2022-10-29 14:36 | Operative Report ---
Post Operative Report Pre & Post Diagnosis Operation Date: 10/29/22 14:00 Pre-Op Diagnosis: Postoperative hematoma Post-Op Diagnosis: Postoperative hematoma I identified the patient and participated in the time-out.: Yes Procedure Operation Date: 10/29/22 14:00 Actual Procedures Evacuation of cervical hematoma Surgeon Sung Hummel DO Lpta None Estimated Blood Loss 10 Findings Consistent with Post-Op Diagnosis Specimens None Indications This is a [age]-year-old male that had been placed on aspirin for strokelike symptoms postoperatively and had his drain accidentally fall out yesterday morning. He been doing well but as of this morning appreciated marked swelling of the right anterior aspect of his neck. He was having difficulty swallowing and we chose to undergo evacuation of the hematoma. Description of Procedure Patient was met with identified informed consent obtained. Patient was then taken to the operative suite underwent a patient placed in supine position the Mac table head [place] overhead distribution engineer. All bony prominences well-padded eyes inspected to ensure no external pressure placed upon the. This point the anterior cervical spine was prepped and draped in a sterile fashion. Utilizing the previous incision site I opened the right incision and evacuated serosanguineous fluid down to the anterior cervical spine. I inspected the area several times to ensure there is no active bleeding. None was identified. 2 L of antibiotic solution were then irrigated throughout the incision. A 10 round MADDY drain inserted. The incision was then closed with 2 Vicryl in a fashion of 4 Monocryl for final skin closure. Steri-Strips and sterile dressing placed. Patient awakened and taken to PACU stable condition. I attest to the content of the Intraoperative Record and any orders documented therein. Any exceptions are noted below.
[2022-10-29] MEDS ORDERED: ceFAZolin 2000MG 2,000 MG/15 ML SYR IV ONE (14:38)
[2022-10-29] MEDS ORDERED: ALBUTEROL 0.083% NEBU SOLN 3 ML VIAL NEB STA (15:06)
--- NOTE | 2022-10-29 16:07 | Anesthesiology Progress Note ---
Date of Service October 29, 2022 Anesthesia Post Procedure Vital Signs Vital Signs: Temp Pulse Pulse Pulse Resp BP BP 10/29/22 15:25 97 H 20 101/81 10/29/22 15:15 89 24 109/78 10/29/22 15:05 81 20 105/79 10/29/22 14:55 82 12 109/78 10/29/22 14:45 36.2 C L 85 18 107/66 10/29/22 15:10 94 H 18 10/29/22 11:31 36.7 C 95 H 18 148/96 H 10/29/22 11:06 118 H 19 10/29/22 09:00 36.6 C 95 H 18 131/92 10/29/22 07:28 101 H 10/29/22 07:09 36.6 C 82 19 142/102 H 10/29/22 07:00 71 18 10/29/22 02:52 36.6 C 84 18 112/75 10/29/22 02:50 84 16 10/29/22 00:38 106 H 10/28/22 23:05 36.5 C 84 20 138/97 10/28/22 22:33 95 H 16 10/28/22 19:32 94 H 18 10/28/22 19:00 36.8 C 100 H 20 145/99 H 10/28/22 16:49 36.8 C 104 H 18 134/89 Pulse Ox O2 Del Method O2 Flow Rate FiO2 10/29/22 15:25 95 Nasal Cannula 2 10/29/22 15:15 95 Oxymask 4 10/29/22 15:05 96 Oxymask 6 10/29/22 14:55 97 Nebulizer 10/29/22 14:45 96 Oxymask 6 10/29/22 15:10 93 Oxymask 10 10/29/22 11:31 92 Nasal Cannula 3.0 10/29/22 11:06 97 Room Air 21 10/29/22 09:00 95 Nasal Cannula 3 10/29/22 07:28 10/29/22 07:09 95 Nasal Cannula 3.0 10/29/22 07:00 Room Air 10/29/22 02:52 95 Nasal Cannula 3 10/29/22 02:50 93 Nasal Cannula 3 10/29/22 00:38 10/28/22 23:05 94 Nasal Cannula 3 10/28/22 22:33 96 Nasal Cannula 3 10/28/22 19:32 92 Nasal Cannula 1 10/28/22 19:00 91 Nasal Cannula 3.0 10/28/22 16:49 94 Nasal Cannula 3.0 Pain Intensity Generalized: Pain Intensity: 3 Transfer of Care Handoff Completed per policy Notes Mental Status: alert / awake / arousable Patient Amnestic to Procedure: Yes Nausea / Vomiting: adequately controlled Pain: adequately controlled Airway Patency, RR, SpO2: stable & adequate BP & HR: stable & adequate Hydration State: stable & adequate Anesthetic Complications: no major complications apparent
[2022-10-29] MEDS: MAGNESIUM HYDROXIDE SUSP 30 ML UDC PO PRN (16:35)
[2022-10-29] MEDS: oxyCODONE HCL IR 5 MG TAB (IMMEDIATE RELEASE) PO PRN ×2 (19:56)
[2022-10-29] MEDS: AMITRIPTYLINE HCL 10 MG TAB PO SCH (19:56)
[2022-10-29] MEDS: dexAMETHasone 6 MG in SYRINGE 0 ML IV SCH (21:08)
[2022-10-29] MEDS: DOCUSATE SODIUM/SENNA 50/8.6MG TAB PO SCH (21:12)
[2022-10-29] MEDS: LEVALBUTEROL 1.25MG/0.5ML NEB INH PRN (22:06)
[2022-10-29] MEDS: IPRATROPIUM BROMIDE NEB SOLN 0.02% 2.5 ML VIAL INH PRN (22:06)
[2022-10-29] MEDS: HYDROmorphone INJ 0.5 MG/0.5 ML SYR IV PRN (22:50)
[2022-10-30] MEDS: oxyCODONE HCL IR 5 MG TAB (IMMEDIATE RELEASE) PO PRN ×3 (04:37→20:01)
[2022-10-30] MEDS: dexAMETHasone 6 MG in SYRINGE 0 ML IV SCH ×3 (05:32→21:50)
[2022-10-30 06:22] LABS: Hematocrit (blood only) 46.4 % (42.0-52.0); Mean Corpuscular Hemoglobin 30.5 pg (25.0-34.0); Mean Corpuscular Hgb Conc 34.5 g/dL (32.0-36.0); Mean Corpuscular Volume 88.4 fL (80.0-100.0); Mean Platelet Volume 10.7 fL (9.4-12.4); Platelet Count 307 K/uL (130-400); RDW Coefficient of Variation 12.9 % (11.5-14.5); RDW Standard Deviation 41.9 fL (36.4-46.3); Red Blood Count 5.25 M/uL (4.70-6.10); White Blood Count 12.93 K/ul (4.8-10.8)
[2022-10-30 07:03] LABS: BUN Creatinine Ratio 19.8 (10-20); Calcium 9.3 mg/dl (8.6-10.3); Creatinine Clr Calc Pharmacy 83.5 ml/min; Est GFR (African American) 98.5 ml/min; Potassium 4.5 mmol/L (3.5-5.1)
[2022-10-30] MEDS: ASPIRIN 81 MG ECTAB PO SCH (07:53)
[2022-10-30] MEDS: AZITHROMYCIN 250 MG TAB PO SCH (07:53)
[2022-10-30] MEDS: NICOTINE 21 MG/24 HR TDSY TD SCH (07:54)
--- NOTE | 2022-10-30 10:16 | Orthopedic Progress Note ---
Date of Service October 30, 2022 Assessment & Plan (1) Postoperative hematoma: Plan: This time we can maintain the MADDY drain. I would anticipate maintaining the drain throughout the day Sunday and possible rehab Sunday. In the interim he may be up and ambulate as tolerated with therapy. Admission and Anticipated Discharge Date Admission Date: October 25, 2022 Subjective Swallowing markedly improved. No shortness of breath. He feels his neck pain is improving. Still struggling with tingling left side of his face left arm and left leg. Physical Exam Physical Exam: On exam he is simply bed. He is comfortable. He has good strength testing right upper extremity. Good range of motion with improved strength left upper extremity. Results & Data Vital Signs (Past 12 Hours) Vital Signs Temp Pulse Pulse Resp BP Pulse Ox O2 Del Method 10/30/22 08:00 76 10/30/22 07:40 36.5 C 100 H 18 118/85 95 Nasal Cannula 10/30/22 04:02 36.7 C 94 H 16 93/63 L 91 Nasal Cannula 10/29/22 23:06 110 H 10/29/22 22:44 36.8 C 101 H 14 112/78 92 Nasal Cannula O2 Flow Rate 10/30/22 08:00 10/30/22 07:40 4 10/30/22 04:02 4 10/29/22 23:06 10/29/22 22:44 3
--- NOTE | 2022-10-30 13:57 | Hospitalist Progress Note ---
Date of Service October 30, 2022 Assessment & Plan (1) Toxic encephalopathy: (2) Acute postoperative pulmonary insufficiency: (3) Stroke-like symptoms: (4) S/P spinal surgery: (5) Chronic obstructive pulmonary disease: (6) Tobacco use: (7) Cauda equina syndrome: Plan 62-year-old male with history of cervical spinal stenosis status post ACDF 10/26/22. Postoperatively, he had repeat dose of narcotic analgesics with mental status changes requiring Narcan injection, also noted to have left-sided weakness and numbness. Seen by neurology, stroke work-up was negative with negative MRI brain/CT head and neck but continued to have left-sided symptoms. Reevaluate with neurology and recommended repeating MRI brain which is negative for stroke or acute abnormality, MRI cervical spine with postop changes. Cervical spinal stenosis status post ACDF 10/25/22-further management per primary team. Pain medication, DVT prophylaxis, activities and diet per primary team. Postoperative hematoma-patient's drain fell out 3 days back and since then appears to be have the worsened hematoma for which he underwent urgent evacuation of hematoma 10/29. Feeling better today. Further management per orthopedics. COPD with bronchitis- Chest x-ray with no pneumonia but atelectasis. Impr oving, continue azithromycin. Continue aerosols. Incentive spirometry. Follow up on sputum culture Acute postoperative pulmonary insufficiency- resolved. Strokelike symptoms- persistent left-sided hemiparesis with hemiparesthesia since after the procedure, now impoving. Stroke work-up 10/25 was unremarkable with negative MRI brain and CTA head and neck. Echo with no significant abnormality. Discussed with neurology who recommended repeating imaging- MRI brain no acute stroke, MRI Cervical spine with only postop changes. Symptoms improving spontaneously. PT/OT eval. Acute metabolic encephalopathy due to excess narcotics (received 150 mg of fentanyl along with Dilaudid in PACU)-resolved. Currently at baseline. Tobacco abuse-cessation recommended. Continue NicoDerm patch H/o Cauda equina syndrome after back surgery in 2009 requiring being taken back to the OR for emergent surgery. reports at baseline patient walks minimal distance and uses wheelchair secondary to chronic back pain and chronic bilateral knee pain Leukocytosis-likely reactive, now improving. Pro-Chas negative. CRP minimally elevated. DVT ppx- per primary team Dispo- per primary team. Plan for discharge to rehab on Sunday per primary team Admission and Anticipated Discharge Date Admission Date: October 25, 2022 Subjective Patient was seen and examined at bedside. States he was in pain last night. His breathing and cough is improved. Still has tingling of left side but weakness is improved. Had bowel movement last night. Normal oral intake. Physical Exam Physical Exam: General: Lying comfortably in bed, not in acute distress, now OK HEENT: CHIDI RODRIGUEZ. MADDY drain in place Chest: Fair breath sounds bilaterally CVS: Regular rate and rhythm, normal heart sounds, no murmur Abdomen: Soft, non tender, not distended, normal bowel sounds Neuro: Awake, alert, conversing well, left-sided hemiparesis improving. LLE strength 4/5, LUE 4/5. Decreased sensation on left side compared to right side Extremities: No cyanosis, clubbing or edema Results & Data Results & Data Vital Signs (Past 12 Hours) Vital Signs Temp Pulse Pulse Resp BP Pulse Ox O2 Del Method 10/30/22 11:48 97 H 18 91 Nasal Cannula 10/30/22 08:15 107 H 16 92 Nasal Cannula 10/30/22 11:30 36.4 C L 96 H 18 106/74 91 Nasal Cannula 10/30/22 08:00 76 10/30/22 07:40 36.5 C 100 H 18 118/85 95 Nasal Cannula 10/30/22 04:02 36.7 C 94 H 16 93/63 L 91 Nasal Cannula O2 Flow Rate FiO2 10/30/22 11:48 2 3 10/30/22 08:15 3 10/30/22 11:30 2 10/30/22 08:00 10/30/22 07:40 4 10/30/22 04:02 4 Laboratory Results Short CBC 10/30/22 Range/Units 05:28 WBC 12.93 H (4.8-10.8) K/ul Hgb 16.0 (14.0-18.0) g/dl Hct 46.4 (42.0-52.0) % Plt Count 307 (130-400) K/uL [facility] 10/30/22 05:28 Sodium 137 Potassium 4.5 Chloride 101 Carbon Dioxide 30 BUN 19 Creatinine 0.96 Glucose 146 H Calcium 9.3 Medications Administered Current Inpatient Medications Acetaminophen (Acetaminophen 500 Mg Tab) 1,000 mg PO Q8H PRN PRN Reason: MILD Pain Scale 1,2,3 & Pre PT Stop: 11/24/22 12:08 Last Admin: 10/29/22 08:42 Dose: 1,000 mg Al Hydrox/Mg Hydrox/Simethicone (Aluminum/Magnesium Susp 30 Ml Udc) 30 ml PO Q6H PRN PRN Reason: Dyspepsia Stop: 11/24/22 12:08 Albuterol (Ipratropium Cody/Albuterol Respimat Inh) 1 puffs INH Q4R PRN; Protocol PRN Reason: Shortness Of Breath Stop: 11/24/22 12:08 Last Admin: 10/28/22 15:15 Dose: 1 puffs Amitriptyline HCl (Amitriptyline Hcl 10 Mg Tab) 30 mg PO [facility] Stop: 11/24/22 20:59 Last Admin: 10/29/22 19:56 Dose: 30 mg Aspirin (Aspirin 81 Mg Ectab) [facility] Stop[facility] 11/25/22 08:59 Last Admin: 10/30/22 07:53 Dose: 81 mg Azithromycin (Azithromycin 250 Mg Tab) 500 mg PO [facility] Stop: 11/05/22 09:14 Last Admin: 10/30/22 07:53 Dose: 500 mg Bisacodyl (Bisacodyl 10 Mg Supp) 10 mg [place] DAILY PRN PRN Reason: Constipation Stop: 11/24/22 12:08 Last Admin: 10/28/22 16:54 Dose: 10 mg Diphenhydramine HCl (Diphenhydramine Capsule 25 Mg Cap) 25 mg PO Q6H PRN PRN Reason: Allergic Rhinitis/Insomnia Stop: 11/24/22 12:08 Epinephrine (Racepinephrine 2.25% Nebu Soln 0.5 Ml Vial) 0.5 ml INH NOW PRN PRN Reason: If stridor present Famotidine (Famotidine 20 Mg Tab) 20 mg PO Q12H PRN PRN Reason: Dyspepsia Stop: 11/24/22 12:08 Hydromorphone HCl (Hydromorphone Inj 0.5 Mg/0.5 Ml Syr) 0.5 mg IV Q3H PRN PRN Reason: MODERATE Pain (Scale 4,5,6) & Pre PT Stop: 11/08/22 12:08 Last Admin: 10/29/22 22:50 Dose: 0.5 mg Hydromorphone HCl (Hydromorphone Inj 1 Mg/Ml Syringe) 1 mg IV Q3H PRN PRN Reason: Pain 7,8,9,10 Stop: 11/11/22 11:26 Last Admin: 10/28/22 11:29 Dose: 1 mg Hydroxyzine HCl (Hydroxyzine Hcl 25 Mg Tab) 25 mg PO Q8H PRN PRN Reason: Anxiety Stop: 11/24/22 12:08 Dexamethasone 8 mg/ Syringe 2 mls @ 1 mls/min IV NOW PRN PRN Reason: If stridor present Promethazine HCl 12.5 mg/ (Sodium Chloride) 50.5 mls @ 202 mls/hr IV Q6H PRN PRN Reason: Nausea &/or Vomiting Stop: 11/24/22 12:08 Dexamethasone 6 mg/ Syringe 1.5 mls @ 1 mls/min IV Q8 SERGEY Stop: 11/28/22 21:59 Last Admin: 10/30/22 05:32 Dose: 1 mls/min Influenza Virus Vaccine Quadrival (Do Not Administer Flu Vaccine) 1 each N/A PRN PRN PRN Reason: Notification Stop: 11/24/22 12:08 Ipratropium Cody (Ipratropium Cody Neb Soln 0.02% 2.5 Ml Vial) 0.5 mg INH Q6R PRN PRN Reason: Wheezing Stop: 11/24/22 18:59 Last Admin: 10/29/22 22:06 Dose: 0.5 mg Levalbuterol HCl (Levalbuterol 1.25mg/0.5ml Neb) 1.25 mg INH Q6R PRN PRN Reason: Shortness Of Breath Or Wheezing Stop: 11/24/22 18:59 Last Admin: 10/29/22 22:06 Dose: 1.25 mg Lorazepam (Lorazepam 0.5 Mg Tab) 0.5 mg PO Q8H PRN PRN Reason: Sedation/Anxiety Stop: 11/24/22 12:08 Lorazepam (Lorazepam 2 Mg/1 Ml Vial) 0.5 mg IV Q8H PRN PRN Reason: Sedation/Anxiety Stop: 11/24/22 12:08 Magnesium Hydroxide (Magnesium Hydroxide Susp 30 Ml Udc) 30 ml PO Q24H PRN PRN Reason: Constipation Stop: 11/24/22 12:08 Last Admin: 10/29/22 16:35 Dose: 30 ml Metoclopramide HCl (Metoclopramide Hcl Inj 5 Mg/Ml 2 Ml Vial) 10 mg IV Q6H PRN PRN Reason: Nausea &/or Vomiting Stop: 11/24/22 12:08 Miscellaneous (Remove Nicoderm Patch) 1 each N/A DAILY@0859 [facility] Stop: 11/25/22 08:58 Last Admin: 10/30/22 07:54 Dose: 1 each Naloxone HCl (Naloxone Hcl 0.4 Mg/1 Ml Vial/Carp) 0.1 mg IV Q5M PRN PRN Reason: Oversedation/Resp depression Stop: 11/24/22 12:08 Nicotine (Nicotine 21 Mg/24 Hr Tdsy) 21 mg TD QAM [facility] Stop: 11/26/22 18:44 Last Admin: 10/30/22 07:54 Dose: 21 mg Ondansetron HCl (Ondansetron Inj 2 Mg/Ml 2 Ml Vial) 4 mg IV Q6H PRN PRN Reason: Nausea &/or Vomiting Stop: 11/24/22 12:08 Last Admin: 10/27/22 16:02 Dose: 4 mg Ondansetron HCl (Ondansetron 4 Mg Od Tab) 4 mg PO Q6H PRN PRN Reason: Nausea Stop: 11/24/22 12:08 Oxycodone HCl (Oxycodone Hcl Ir 5 Mg Tab (Immediate Release)) 20 - 30 mg PO Q6 PRN PRN Reason: Pain & Pre PT Stop: 11/08/22 12:08 Last Admin: 10/30/22 10:46 Dose: 30 mg Pneumococcal Polyvalent Vaccine (Do Not Administer Pneumococcal Vaccine) 1 each N/A PRN PRN PRN Reason: Notification Stop: 11/24/22 12:08 Senna/Docusate Sodium (Docusate Sodium/Senna 50/8.6mg Tab) 2 tab PO HS [facility] Stop: 11/24/22 20:59 Last Admin: 10/29/22 21:12 Dose: 2 tab Sodium Biphosphate/Sodium Phosphate (Sod Phosphate/Sod Biphosphate Enema 132 Ml Btl) 132 ml [place] ONE PRN PRN Reason: Constipation Stop: 11/24/22 12:08
[2022-10-30] MEDS: HYDROmorphone INJ 1 MG/ML SYRINGE IV PRN (14:19)
[2022-10-30] MEDS: AMITRIPTYLINE HCL 10 MG TAB PO SCH (20:01)
[2022-10-30] MEDS: DOCUSATE SODIUM/SENNA 50/8.6MG TAB PO SCH (20:01)
[2022-10-31] MEDS: HYDROmorphone INJ 0.5 MG/0.5 ML SYR IV PRN ×3 (02:06→13:02)
[2022-10-31] MEDS: dexAMETHasone 6 MG in SYRINGE 0 ML IV SCH ×3 (05:42→20:40)
--- NOTE | 2022-10-31 08:17 | Orthopedic Progress Note ---
Date of Service October 31, 2022 Assessment & Plan (1) Postoperative hematoma: Plan: At this time the MADDY drain is decreasing appropriately. I would like to maintain the drain for another 24 hours. I anticipate he will be stable for discharge home tomorrow. Admission and Anticipated Discharge Date Admission Date: October 25, 2022 Subjective Patient's neck pain is improving. He feels his left arm function is improving. Still has numbness to left side of his body. Physical Exam Physical Exam: On exam appears uncomfortable. The neck is supple without swelling. His strength is improved left upper extremity. Results & Data Vital Signs (Past 12 Hours) Vital Signs Temp Pulse Pulse Resp BP Pulse Ox O2 Del Method 10/31/22 08:02 36.5 C 69 17 115/76 91 Nasal Cannula 10/31/22 07:00 77 18 93 Nasal Cannula 10/31/22 03:15 36.4 C L 81 17 102/69 94 Nasal Cannula 10/31/22 00:01 71 10/30/22 22:30 85 18 92 Nasal Cannula 10/30/22 23:10 36.5 C 87 18 116/79 93 Nasal Cannula O2 Flow Rate 10/31/22 08:02 2 10/31/22 07:00 2 10/31/22 03:15 2 10/31/22 00:01 10/30/22 22:30 2 10/30/22 23:10 2
[2022-10-31] MEDS: NICOTINE 21 MG/24 HR TDSY TD SCH (08:29)
[2022-10-31] MEDS: ASPIRIN 81 MG ECTAB PO SCH (08:30)
[2022-10-31] MEDS: AZITHROMYCIN 250 MG TAB PO SCH (08:30)
--- NOTE | 2022-10-31 14:25 | Hospitalist Progress Note ---
Date of Service October 31, 2022 Assessment & Plan (1) Acute postoperative pulmonary insufficiency: (2) Stroke-like symptoms: (3) S/P spinal surgery: (4) Chronic obstructive pulmonary disease: (5) Tobacco use: (6) Cauda equina syndrome: (7) Postoperative hematoma: Plan 62-year-old male with history of cervical spinal stenosis status post ACDF 10/26/22. Postoperatively, he had repeat dose of narcotic analgesics with mental status changes requiring Narcan injection, also noted to have left-sided weakness and numbness. Seen by neurology, stroke work-up was negative with negative MRI brain/CT head and neck but continued to have left-sided symptoms. Reevaluate with neurology and recommended repeating MRI brain which is negative for stroke or acute abnormality, MRI cervical spine with postop changes. Cervical spinal stenosis status post ACDF 10/25/22-further management per primary team. Pain medication, DVT prophylaxis, activities and diet per primary team. Postoperative hematoma-patient's drain fell out few days back and then developed hematoma for which he underwent urgent evacuation of hematoma 10/29. Feeling better since evacuation. Further management per orthopedics. COPD with bronchitis- Chest x-ray with no pneumonia but atelectasis. Improved. S/p 3 days of azithro. On aerosols. Incentive spirometry. Acute postoperative pulmonary insufficiency- resolved. Strokelike symptoms- persistent left-sided hemiparesis with hemiparesthesia since after the procedure, now impoving. Stroke work-up 10/25 was unremarkable with negative MRI brain and CTA head and neck. Echo with no significant abnormality. Discussed with neurology who recommended repeating imaging- MRI brain no acute stroke, MRI Cervical spine with only postop changes. Symptoms improving spontaneously. Continue therapy. Acute metabolic encephalopathy due to excess narcotics (received 150 mg of fentanyl along with Dilaudid in PACU)-resolved. Currently at baseline. Tobacco abuse-cessation recommended. Continue NicoDerm patch H/o Cauda equina syndrome after back surgery in 2009 requiring being taken back to the OR for emergent surgery. reports at baseline patient walks minimal distance and uses wheelchair secondary to chronic back pain and chronic bilateral knee pain Leukocytosis-likely reactive, now improving. Pro-Chas negative. CRP minimally elevated. DVT ppx- per primary team Dispo- per primary team. Plan for discharge to rehab on Wednesday per primary team Admission and Anticipated Discharge Date Admission Date: October 25, 2022 Subjective Patient was seen and examined at bedside. No new issues. Still has some pain at surgical site. Still complains of tingling in left side, left-sided weakness is stable to improved. Breathing issues have resolved. No fever, chills, nausea or abdominal pain. Having regular bowel movements Physical Exam Physical Exam: General: Lying comfortably in bed, not in acute distress HEENT: CHIDI RODRIGUEZ. MADDY drain in place Chest: Fair breath sounds bilaterally CVS: Regular rate and rhythm, normal heart sounds, no murmur Abdomen: Soft, non tender, not distended, normal bowel sounds Neuro: Awake, alert, conversing well, left-sided hemiparesis improving. LLE strength 3/5, LUE 4/5. Decreased sensation on left side compared to right side Extremities: No cyanosis, clubbing or edema Results & Data Results & Data Vital Signs (Past 12 Hours) Vital Signs Temp Pulse Pulse Resp BP Pulse Ox O2 Del Method 10/31/22 11:33 36.6 C 84 17 120/80 93 Room Air 10/31/22 11:00 78 20 92 Nasal Cannula 10/31/22 08:38 67 10/31/22 08:02 36.5 C 69 17 115/76 91 Nasal Cannula 10/31/22 07:00 77 18 93 Nasal Cannula 10/31/22 03:15 36.4 C L 81 17 102/69 94 Nasal Cannula O2 Flow Rate 10/31/22 11:33 10/31/22 11:00 2 10/31/22 08:38 10/31/22 08:02 2 10/31/22 07:00 2 10/31/22 03:15 2
[2022-10-31] MEDS: HYDROmorphone INJ 1 MG/ML SYRINGE IV PRN ×2 (19:10→22:56)
[2022-10-31] MEDS: AMITRIPTYLINE HCL 10 MG TAB PO SCH (20:40)
[2022-10-31] MEDS: DOCUSATE SODIUM/SENNA 50/8.6MG TAB PO SCH (20:40)
[2022-11-01] MEDS: HYDROmorphone INJ 1 MG/ML SYRINGE IV PRN (04:22)
[2022-11-01] MEDS: dexAMETHasone 6 MG in SYRINGE 0 ML IV SCH (06:25)
[2022-11-01 06:35] LABS: Hematocrit (blood only) 43.9 % (42.0-52.0); Hemoglobin 15.4 g/dl (14.0-18.0); Mean Corpuscular Hemoglobin 30.7 pg (25.0-34.0); Mean Corpuscular Hgb Conc 35.1 g/dL (32.0-36.0); Mean Corpuscular Volume 87.6 fL (80.0-100.0); Mean Platelet Volume 10.4 fL (9.4-12.4); Platelet Count 328 K/uL (130-400); RDW Coefficient of Variation 12.7 % (11.5-14.5); RDW Standard Deviation 40.5 fL (36.4-46.3); Red Blood Count 5.01 M/uL (4.70-6.10)
[2022-11-01 06:52] LABS: BUN Creatinine Ratio 21.5 (10-20); Calcium 8.8 mg/dl (8.6-10.3); Creatinine Clr Calc Pharmacy 74.7 ml/min; Est GFR (African American) 86.4 ml/min; Est GFR (Non-African American) 74.5 ml/min
[2022-11-01] MEDS: NICOTINE 21 MG/24 HR TDSY TD SCH (08:24)
[2022-11-01] MEDS: ASPIRIN 81 MG ECTAB PO SCH (08:24)
[2022-11-01] MEDS: oxyCODONE HCL IR 5 MG TAB (IMMEDIATE RELEASE) PO PRN (08:30)
[2022-11-01] MEDS: ONDANSETRON INJ 2 MG/ML 2 ML VIAL IV PRN (08:40)
--- NOTE | 2022-11-01 10:10 | Discharge Summary ---
Date of Service November 01, 2022 Admission HPI Per Admitting Provider This is a 62-year-old male presents with chronic persistent neck and arm pain after failing course of nonoperative care is here for surgical intervention. Principal Diagnosis Cervical spinal stenosis with radiculopathy Discharge Data Allergies Allergy/AdvReac Type Severity Reaction Status Date / Time tizanidine Allergy Unknown Unknown Verified 10/26/22 21:29 fentanyl AdvReac Severe reacts Verified 10/26/22 21:29 poorly Consultations 10/25/22 12:09 Consult Hospitalist Routine 10/25/22 15:44 Consult Neurology Stat Procedures Performed Operation Date: 10/29/22 14:00 Actual Procedures p Evacuation of Cervical Hematoma(Not Applicable) - Sung Hummel DO Ordered Studies 10/25/22 07:45 FL cervical 2-3V Routine 10/25/22 13:22 CT head/brain wo con Stat CT neck [CT cervical spine wo con] Stat 10/25/22 16:05 CT angio neck with con Stat 10/25/22 16:08 CT angio head w con Stat MR brain wo con Routine 10/27/22 08:35 MRI Brain [MR brain wo con] Routine MRI Cervical [MR cervical spine wo con] Routine Hospital Course (1) Cervical stenosis of spinal canal: Patient underwent multilevel anterior cervical decompression and fusion was taken to the floor postoperatively but had a code purple where he became unresponsive. He was taken to the ICU and later on determined to have strokelike symptoms affecting his left side. He was recovering appropriately but developed a hematoma in the anterior cervical incision site and underwent evacuation of hematoma. Yon well was taken back to the floor postoperatively. He progressed appropriately and was subsequently discharged to rehab. Discharge orders instructions found in chart for further review. Total Time Total Time Spent Total Time Spent (In Minutes): 20 minutes Discharge Plan Discharge Items Patient Disposition: Transfer Inpatient Rehab Fac Reason For Visit: Cervical Region Spinal Stenosis Discharge Diagnosis: Cervical spinal stenosis Activity: As commented below Non-emergency contact: Primary Care Provider Call non-emergency contact if: you have any medication questions Follow-up/Referrals: Rubin Jimenez MD [Primary Care Provider] - Diet: Regular Addtl Attending Provider Instructions: ACTIVITY RECOMMENDATIONS: SELF CARE INSTRUCTIONS AFTER CERVICAL FUSIONS 1. No smoking. Smoking drastically decreases the chance of a solid fusion. 2. No bending, lifting more than 5 pounds, or twisting (roll like a log when turning in bed). 3. You may shower 3 days after surgery. Thoroughly dry wound. Do not soak in the tub. 4. Cervical collar: Must be worn at all times including sleeping. You may remove the brace only to bath, eat and if you are sitting in a recliner. 5. Please walk as much as you can for exercise. Gradually increase the distance that you walk as your endurance increases. SPECIAL CARE INSTRUCTIONS: VERY IMPORTANT TO READ AND REVIEW A. Do not take any anti-inflammatory medications (i.e. Indocin, Advil, Aspirin, Naprosyn, Aleve, Motrin, etc.) as these may inhibit the chance of a solid fusion. Tylenol is okay to take. B. Your surgical incision has been closed with a cosmetic suture under the skin that will dissolve in about 6 weeks. In 14 days, you can use a pair of clean scissors and cut the suture that is left outside of the skin at the ends of your incision. C. Complications are uncommon, but please contact us if you have any signs or symptoms of: 1. wound infection (fever higher than 102.5 degrees F, redness, separation of wound, drainage, or increasing pain from the incision) 2. blood clots in legs (pain, swelling, redness and warmth in legs) 3. urinary tract infection (fever higher than 102.5 degrees, burning upon urination or increased frequency of urination) 4. nerve problems (inability to walk on your toes or heels, numbness, loss of bowel or bladder control) 5. any other symptoms that concern you. D. Please call the office at if you have any concerns or questions about your operation or recovery. MANAGING PAIN AFTER SPINAL SURGERY 1. Narcotic medication is intended for short-term use and will be provided for surgical pain. Surgical pain usually lasts for a period of 4-6 weeks. Narcotic medication includes Percocet, Vicodin, Darvocet, Tylenol #3 or Lortab. 2. Longer-term pain is more appropriately treated with non-narcotic medication such as Tylenol ES. 3. Muscle spasm is not appropriately treated with narcotics. Muscle relaxers such as Soma, Flexeril or Skelaxin can be used along with Tylenol ES. 4. Remember that we all live with some "aches and pains". This is not unusual or uncommon after an injury or as we get older. 5. We will provide appropriate medication within the normal guidelines of their prescribed use. We will also be very cautious and aware of potential abuse and extended duration of patients' medication needs. 6. Please allow 2-3 days to process refills. Prescriptions will not be mailed but must be picked up at the office. FOLLOW UP VISIT: Keep your scheduled follow-up appointment. Any questions, please call the office at . Pending Studies at Discharge: No Stand-Alone Forms: My [facility] Skilled Items Patient informed of condition?: Yes DNR: No Discharge Level of Care: Acute rehab Communicable Disease: No Discharge Prognosis: Improving Lines: None Urinary Catheter: No Medications and DC Order Prescriptions: New oxycodone 15 mg tablet 15 mg PO Q6 PRN (Reason: pain) Qty: 60 0RF Rx Instructions: 2 15mg pills q6 prn for a dose of 30mg q6 prn Continued carisoprodol [Soma] 350 mg Tablet 350 mg PO TID PRN (Reason: muscle spasms) oxycodone 10 mg Tablet 30 mg PO QID Combivent Respimat 20-100 mcg/actuation Mist 1 puff INHALATION Q4H PRN (Reason: Shortness Of Breath) amitriptyline 10 mg Tablet 30 mg PO HS Discharge Orders: Discharge Order (Routine); Ordered 11/01/22 Ordered By: Sung Hummel Admission Data Admit Date/Time: 10/25/22 09:54 Attending Provider: Sung Hummel Admit Provider: Sung Hummel Primary Care Provider: Rubin Jimenez Other Providers: Melissa Maldonado ; Dejuan Brown ; Conrad Webster
--- NOTE | 2022-11-01 10:15 | Hospitalist Progress Note ---
Date of Service November 01, 2022 Assessment & Plan (1) Acute postoperative pulmonary insufficiency: (2) Stroke-like symptoms: (3) S/P spinal surgery: (4) Chronic obstructive pulmonary disease: (5) Tobacco use: (6) Cauda equina syndrome: (7) Postoperative hematoma: Plan 62-year-old male with history of cervical spinal stenosis status post ACDF 10/26/22. Postoperatively, he had repeat dose of narcotic analgesics with mental status changes requiring Narcan injection, also noted to have left-sided weakness and numbness. Seen by neurology, stroke work-up was negative with negative MRI brain/CT head and neck but continued to have left-sided symptoms. Reevaluate with neurology and recommended repeating MRI brain which is negative for stroke or acute abnormality, MRI cervical spine with postop changes. Cervical spinal stenosis status post ACDF 10/25/22-further management per primary team. Pain medication, DVT prophylaxis, activities and diet per primary team. Postoperative hematoma-patient's drain fell out few days back and then developed hematoma for which he underwent urgent evacuation of hematoma 10/29. Feeling better since evacuation. Further management per orthopedics. COPD with bronchitis- Chest x-ray with no pneumonia but atelectasis. Improved. S/p 3 days of azithro. On aerosols. Incentive spirometry. Acute postoperative pulmonary insufficiency- resolved. continue using incentive spirometer. Strokelike symptoms- persistent left-sided hemiparesis with hemiparesthesia since after the procedure, now improving. Stroke work-up 10/25 was unremarkable with negative MRI brain and CTA head and neck. Echo with no significant abnormality. Discussed with neurology who recommended repeating imaging- MRI brain no acute stroke, MRI Cervical spine with only postop changes. Symptoms improving spontaneously. Continue therapy. Acute metabolic encephalopathy due to excess narcotics (received 150 mg of fentanyl along with Dilaudid in PACU)-resolved. Currently at baseline. Tobacco abuse-cessation recommended. Continue NicoDerm patch H/o Cauda equina syndrome after back surgery in 2009 requiring being taken back to the OR for emergent surgery. reports at baseline patient walks minimal distance and uses wheelchair secondary to chronic back pain and chronic bilateral knee pain Leukocytosis-likely reactive, and secondary to steroids. Pro-Chas negative. CRP minimally elevated. DVT ppx- per primary team Dispo- per primary team. Plan for discharge to rehab today per primary team Admission and Anticipated Discharge Date Admission Date: October 25, 2022 Subjective Patient seen in follow up of med. consult s/p ACDF Pt is laying in bed in NAD, reports no new issues overnight. Seen w/ orth. surgeon at the bedside, Dr. Hummel - discussed possible DC to rehab today Pt still has a drain, plan to remove today Still complains of tingling/numbness in left side No fever, chills, nausea or abdominal pain. Swallowing ok,voiding and having bowel movements. Review of Systems Review of Systems: All systems reviewed & are unremarkable except as noted in Subjective Physical Exam Physical Exam: General: Lying comfortably in bed, not in acute distress HEENT: CHIDI RODRIGUEZ. MADDY drain in place (to be removed today) Chest: Fair breath sounds bilaterally CVS: Regular rate and rhythm, normal heart sounds, no murmur Abdomen: Soft, non tender, not distended, normal bowel sounds Neuro: Awake, alert, conversing well, left-sided hemiparesis improving. LLE strength 3/5, LUE 4/5. Decreased sensation on left side compared to right side Extremities: No cyanosis, clubbing or edema Results & Data Results & Data Vital Signs (Past 12 Hours) Vital Signs Temp Pulse Pulse Resp BP Pulse Ox O2 Del Method 11/01/22 07:47 36.5 C 63 18 112/51 L 92 Nasal Cannula 11/01/22 07:22 73 16 90 Room Air 11/01/22 03:11 36.6 C 83 17 114/75 92 Nasal Cannula 11/01/22 02:41 64 16 94 Nasal Cannula 10/31/22 23:46 82 10/31/22 22:40 36.8 C 88 18 120/81 92 Nasal Cannula 10/31/22 22:35 103 H 19 92 Nasal Cannula O2 Flow Rate 11/01/22 07:47 2 11/01/22 07:22 11/01/22 03:11 2 11/01/22 02:41 2 10/31/22 23:46 10/31/22 22:40 2 10/31/22 22:35 2 Laboratory Results 11/01/22 11/01/22 Range/Units 05:25 05:25 WBC 19.10 H (4.8-10.8) K/ul RBC 5.01 (4.70-6.10) M/uL Hgb 15.4 (14.0-18.0) g/dl Hct 43.9 (42.0-52.0) % MCV 87.6 (80.0-100.0) fL MCH 30.7 (25.0-34.0) pg MCHC 35.1 (32.0-36.0) g/dL RDW Std Deviation 40.5 (36.4-46.3) fL RDW Coeff of Licha 12.7 (11.5-14.5) % Plt Count 328 (130-400) K/uL MPV 10.4 (9.4-12.4) fL Sodium 136 (136-145) mmol/L Potassium 4.0 (3.5-5.1) mmol/L Chloride 102 (98-107) mmol/L Carbon Dioxide 28 (21-32) mmol/L Anion Gap 6 (3-11) BUN 23 (6-23) mg/dl Creatinine 1.07 (0.6-1.4) mg/dl Est Cr Clr Drug Dosing 74.7 ml/min Est GFR ( Amer) 86.4 ml/min Est GFR (Non-Af Amer) 74.5 ml/min BUN/Creatinine Ratio 21.5 H (10-20) Glucose 120 H (70-99(Fasting)) mg/dl Calcium 8.8 (8.6-10.3) mg/dl Medications Administered Current Inpatient Medications Acetaminophen (Acetaminophen 500 Mg Tab) 1,000 mg PO Q8H PRN PRN Reason: MILD Pain Scale 1,2,3 & Pre PT Stop: 11/24/22 12:08 Last Admin: 10/29/22 08:42 Dose: 1,000 mg Al Hydrox/Mg Hydrox/Simethicone (Aluminum/Magnesium Susp 30 Ml Udc) 30 ml PO Q6H PRN PRN Reason: Dyspepsia Stop: 11/24/22 12:08 Albuterol (Ipratropium [place]/Albuterol Respimat Inh) 1 puffs INH Q4R PRN; Protocol PRN Reason: Shortness Of Breath Stop: 11/24/22 12:08 Last Admin: 10/28/22 15:15 Dose: 1 puffs Amitriptyline HCl (Amitriptyline Hcl 10 Mg Tab) 30 mg PO HS SERGEY Stop: 11/24/22 20:59 Last Admin: 10/31/22 20:40 Dose: 30 mg Aspirin (Aspirin 81 Mg Ectab) 81 mg PO QAM SERGEY Stop: 11/25/22 08:59 Last Admin: 11/01/22 08:24 Dose: 81 mg Bisacodyl (Bisacodyl 10 Mg Supp) 10 mg [place] DAILY PRN PRN Reason: Constipation Stop: 11/24/22 12:08 Last Admin: 10/28/22 16:54 Dose: 10 mg Diphenhydramine HCl (Diphenhydramine Capsule 25 Mg Cap) 25 mg PO Q6H PRN PRN Reason: Allergic Rhinitis/Insomnia Stop: 11/24/22 12:08 Epinephrine (Racepinephrine 2.25% Nebu Soln 0.5 Ml Vial) 0.5 ml INH NOW PRN PRN Reason: If stridor present Famotidine (Famotidine 20 Mg Tab) 20 mg PO Q12H PRN PRN Reason: Dyspepsia Stop: 11/24/22 12:08 Hydromorphone HCl (Hydromorphone Inj 0.5 Mg/0.5 Ml Syr) 0.5 mg IV Q3H PRN PRN Reason: MODERATE Pain (Scale 4,5,6) & Pre PT Stop: 11/08/22 12:08 Last Admin: 10/31/22 13:02 Dose: 0.5 mg Hydromorphone HCl (Hydromorphone Inj 1 Mg/Ml Syringe) 1 mg IV Q3H PRN PRN Reason: Pain 7,8,9,10 Stop: 11/11/22 11:26 Last Admin: 11/01/22 04:22 Dose: 1 mg Hydroxyzine HCl (Hydroxyzine Hcl 25 Mg Tab) 25 mg PO Q8H PRN PRN Reason: Anxiety Stop: 11/24/22 12:08 Dexamethasone 8 mg/ Syringe 2 mls @ 1 mls/min IV NOW PRN PRN Reason: If stridor present Promethazine HCl 12.5 mg/ (Sodium Chloride) 50.5 mls @ 202 mls/hr IV Q6H PRN PRN Reason: Nausea &/or Vomiting Stop: 11/24/22 12:08 Dexamethasone 6 mg/ Syringe 1.5 mls @ 1 mls/min IV Q8 SERGEY Stop: 11/28/22 21:59 Last Admin: 11/01/22 06:25 Dose: 1 mls/min Influenza Virus Vaccine Quadrival (Do Not Administer Flu Vaccine) 1 each N/A PRN PRN PRN Reason: Notification Stop: 11/24/22 12:08 Ipratropium [place] (Ipratropium [place] Neb Soln 0.02% 2.5 Ml Vial) 0.5 mg INH Q6R PRN PRN Reason: Wheezing Stop: 11/24/22 18:59 Last Admin: 10/29/22 22:06 Dose: 0.5 mg Levalbuterol HCl (Levalbuterol 1.25mg/0.5ml Neb) 1.25 mg INH Q6R PRN PRN Reason: Shortness Of Breath Or Wheezing Stop: 11/24/22 18:59 Last Admin: 10/29/22 22:06 Dose: 1.25 mg Lorazepam (Lorazepam 0.5 Mg Tab) 0.5 mg PO Q8H PRN PRN Reason: Sedation/Anxiety Stop: 11/24/22 12:08 Lorazepam (Lorazepam 2 Mg/1 Ml Vial) 0.5 mg IV Q8H PRN PRN Reason: Sedation/Anxiety Stop: 11/24/22 12:08 Magnesium Hydroxide (Magnesium Hydroxide Susp 30 Ml Udc) 30 ml PO Q24H PRN PRN Reason: Constipation Stop: 11/24/22 12:08 Last Admin: 10/29/22 16:35 Dose: 30 ml Metoclopramide HCl (Metoclopramide Hcl Inj 5 Mg/Ml 2 Ml Vial) 10 mg IV Q6H PRN PRN Reason: Nausea &/or Vomiting Stop: 11/24/22 12:08 Miscellaneous (Remove Nicoderm Patch) 1 each N/A DAILY@0859 [facility]1983 Stop: 11/25/22 08:58 Last Admin: 11/01/22 08:24 Dose: 1 each Naloxone HCl (Naloxone Hcl 0.4 Mg/1 Ml Vial/Carp) 0.1 mg IV Q5M PRN PRN Reason: Oversedation/Resp depression Stop: 11/24/22 12:08 Nicotine (Nicotine 21 Mg/24 Hr Tdsy) 21 mg TD QAM [facility]1983 Stop: 11/26/22 18:44 Last Admin: 11/01/22 08:24 Dose: 21 mg Ondansetron HCl (Ondansetron Inj 2 Mg/Ml 2 Ml Vial) 4 mg IV Q6H PRN PRN Reason: Nausea &/or Vomiting Stop: 11/24/22 12:08 Last Admin: 11/01/22 08:40 Dose: 4 mg Ondansetron HCl (Ondansetron 4 Mg Od Tab) 4 mg PO Q6H PRN PRN Reason: Nausea Stop: 11/24/22 12:08 Oxycodone HCl (Oxycodone Hcl Ir 5 Mg Tab (Immediate Release)) 20 - 30 mg PO Q6 PRN PRN Reason: Pain & Pre PT Stop: 11/08/22 12:08 Last Admin: 11/01/22 08:30 Dose: 30 mg Pneumococcal Polyvalent Vaccine (Do Not Administer Pneumococcal Vaccine) 1 each N/A PRN PRN PRN Reason: Notification Stop: 11/24/22 12:08 Senna/Docusate Sodium (Docusate Sodium/Senna 50/8.6mg Tab) 2 tab PO HS SERGEY Stop: 11/24/22 20:59 Last Admin: 10/31/22 20:40 Dose: Not Given Sodium Biphosphate/Sodium Phosphate (Sod Phosphate/Sod Biphosphate Enema 132 Ml Btl) 132 ml [place] ONE PRN PRN Reason: Constipation Stop: 11/24/22 12:08
== END 2022-11-01 14:22 | DRG 471 ==
LOC: ASU 06:02 → 3E 09:54 → 1E 13:24 → 2S 22:59